=== PATIENT | male | born 1940 | race American Indian/Alaskan Native ===

== ENCOUNTER 2021-05-20 11:45 | Emergency (ER) | payer MEDICARE ==
--- NOTE | 2021-05-20 14:48 | Emergency Department Report ---
HPI - General Chief Complaint: Weakness Time Seen by Provider: 05/20/21 14:39 - HPI HPI: 80-year-old -[place] male presents to the emergency department, brought in by his daughter, for evaluation of weakness, possible altered mental status, and being COVID-positive. Apparently patient had exposure to someone who was positive for COVID-19 back on 05/08. He was just tested about 4 days ago and it resulted as positive. He has a past medical history of dementia and hypertension. He lives in a personal skilled nursing. The daughter says that he had some type of a fall yesterday in which EMS was called but they did not feel that there was any evidence of trauma and he was not seen in the emergency department. She says that he has been having more difficulty following directions, has been shaky, and is having difficulty with ambulation. The patient usually walks with a cane. No recent travel or sick contacts at home. ED Review of Systems ROS: Stated complaint: WEAKNESS/SHAKY/SICKNESS Other details as noted in HPI Comment: Unobtainable due to pts medical conditions (hx of dementia) Constitutional: weakness Neurological: confusion Physical Exam - Physical Exam Physical Exam: GENERAL: The patient is well-developed well-nourished. HENT: Normocephalic. Atraumatic. Patient has moist mucous membranes. EYES: Extraocular motions are intact. No nystagmus. NECK: Supple. Trachea is midline. CHEST/LUNGS: Clear to auscultation. There is no respiratory distress noted. HEART/CARDIOVASCULAR: Regular. There is no tachycardia. There is no murmur. ABDOMEN: Abdomen is soft, nontender. Patient has normal bowel sounds. SKIN: Skin is warm and dry. NEURO: The patient is awake, alert, and cooperative. Normal speech. Cranial nerves II through XII grossly intact. MUSCULOSKELETAL: There is no tenderness or deformity. There is no limitation range of motion. ED Medical Decision Making - Lab Data Result diagrams: 05/20/21 14:53 05/20/21 14:53 Lab Results 05/20/21 05/20/21 05/20/21 Range/Units 14:53 14:53 14:53 WBC 9.3 (4.5-11.0) K/mm3 RBC 5.76 H (3.65-5.03) M/mm3 Hgb 16.2 H (11.8-15.2) gm/dl Hct 49.9 H (35.5-45.6) % MCV 87 (84-94) fl MCH 28 (28-32) pg MCHC 33 (32-34) % RDW 15.0 (13.2-15.2) % Plt Count 154 (140-440) K/mm3 Lymph % (Auto) 15.7 (13.4-35.0) % Schleicher % (Auto) 13.6 H (0.0-7.3) % Eos % (Auto) 0.0 (0.0-4.3) % Baso % (Auto) 0.4 (0.0-1.8) % Lymph # (Auto) 1.5 (1.2-5.4) K/mm3 Schleicher # (Auto) 1.3 H (0.0-0.8) K/mm3 Eos # (Auto) 0.0 (0.0-0.4) K/mm3 Baso # (Auto) 0.0 (0.0-0.1) K/mm3 Seg Neutrophils % 70.3 H (40.0-70.0) % Seg Neutrophils # 6.5 (1.8-7.7) K/mm3 Sodium 146 H (137-145) mmol/L Potassium 4.8 (3.6-5.0) mmol/L Chloride 106.5 (98-107) mmol/L Carbon Dioxide 22 (22-30) mmol/L Anion Gap 22 mmol/L BUN 29 H (9-20) mg/dL Creatinine 1.2 (0.8-1.3) mg/dL Estimated GFR > 60 ml/min BUN/Creatinine Ratio 24 % Glucose 127 H (75-100) mg/dL Calcium 9.4 (8.4-10.2) mg/dL Total Bilirubin 0.60 (0.1-1.2) mg/dL AST 48 H (5-40) units/L ALT 34 (7-56) units/L Alkaline Phosphatase 63 (35-129) units/L Ammonia (25-60) umol/L Troponin T < 0.010 (0.00-0.029) ng/mL Total Protein 7.7 (6.3-8.2) g/dL Albumin 4.2 (3.9-5) g/dL Albumin/Globulin Ratio 1.2 % TSH 1.400 (0.270-4.200) mlU/mL 05/20/21 Range/Units 14:53 WBC (4.5-11.0) K/mm3 RBC (3.65-5.03) M/mm3 Hgb (11.8-15.2) gm/dl Hct (35.5-45.6) % MCV (84-94) fl MCH (28-32) pg MCHC (32-34) % RDW (13.2-15.2) % Plt Count (140-440) K/mm3 Lymph % (Auto) (13.4-35.0) % Schleicher % (Auto) (0.0-7.3) % Eos % (Auto) (0.0-4.3) % Baso % (Auto) (0.0-1.8) % Lymph # (Auto) (1.2-5.4) K/mm3 Schleicher # (Auto) (0.0-0.8) K/mm3 Eos # (Auto) (0.0-0.4) K/mm3 Baso # (Auto) (0.0-0.1) K/mm3 Seg Neutrophils % (40.0-70.0) % Seg Neutrophils # (1.8-7.7) K/mm3 Sodium (137-145) mmol/L Potassium (3.6-5.0) mmol/L Chloride (98-107) mmol/L Carbon Dioxide (22-30) mmol/L Anion Gap mmol/L BUN (9-20) mg/dL Creatinine (0.8-1.3) mg/dL Estimated GFR ml/min BUN/Creatinine Ratio % Glucose (75-100) mg/dL Calcium (8.4-10.2) mg/dL Total Bilirubin (0.1-1.2) mg/dL AST (5-40) units/L ALT (7-56) units/L Alkaline Phosphatase (35-129) units/L Ammonia 18.0 L (25-60) umol/L Troponin T (0.00-0.029) ng/mL Total Protein (6.3-8.2) g/dL Albumin (3.9-5) g/dL Albumin/Globulin Ratio % TSH (0.270-4.200) mlU/mL - EKG Data -: EKG Interpreted by Me EKG shows normal: sinus rhythm, axis (Left axis deviation), intervals (Slightly prolonged QTC), QRS complexes, ST-T waves (Nonspecific T waves) Rate: tachycardia (113 bpm) - EKG Data When compared to previous EKG there are: previous EKG unavailable Interpretation: other (Sinus tachycardia at 113 bpm, left axis deviation, prolonged QTC, nonspecific T waves. No ST elevation UT) - Radiology Data Radiology results: report reviewed, image reviewed interpreted by me: Chest x-ray does not show any acute process. There are no pleural effusions, obvious pneumonia and there is no pneumothorax. No widened mediastinum. CT BRAIN: 05/20/2021 INDICATION / CLINICAL INFORMATION: weakness, fall. COMPARISON: None available. FINDINGS: BRAIN/INTRACRANIAL STRUCTURES: Unenhanced CT images of the brain were obtained. There is no evidence of acute abnormality. Ventricles and sulci are prominent in size, consistent with age-related atrophic change. Chronic white matter hypoattenuation is present diffusely. There is evidence of focal subcortical ischemic change in the right basal ganglia and fro ntal white matter. There is no CT evidence of acute large vessel territory ischemic injury, which, or mass. There are no abnormal extra-axial fluid collections. EXTRACRANIAL STRUCTURES: Unremarkable. IMPRESSION: No acute abnormality. Chronic and age-related changes. - Medical Decision Making This is a COVID-positive 80-year-old male who was brought in by his daughter for complaints of some generalized weakness and fatigue and concerned that he cannot remain at his personal skilled nursing. On examination the patient does have some confusion, but the patient does have history of dementia. Cranial nerves are intact and he is following commands. CT scan of the head without contrast does not show any hemorrhage, large vessel occlusion, or any other acute process. Patient's labs have been mostly unremarkable including CBC, metabolic panel, negative troponin, normal thyroid function, ammonia level. EKG did not show any morphology consistent with ST elevation myocardial infarction. Vital signs reassuring throughout his ED course. Patient was able to ambulate up and down the emergency department hallway and says that he feels stable and he did not have any significant hypoxia. This should be enough for the patient to remain at his personal skilled nursing with what ever minimal assistance they provide for ADLs. They have been instructed to follow-up with primary care and return to the emergency department with any worsening of his symptoms or with any acute distress. Critical Care Time: No Critical care attestation.: If time is entered above; I have spent that time in minutes in the direct care of this critically ill patient, excluding procedure time. ED Disposition Clinical Impression: COVID-19, Dementia, Generalized weakness Disposition: 01 HOME / SELF CARE / HOMELESS Is pt being admited?: No Condition: Stable Instructions: COVID-19, Dementia, Weakness Additional Instructions: Please follow-up with your primary care physician in the next few days. Please isolate/quarantine yourself from anybody who is immunocompromised, chronically ill/debilitated, unvaccinated. Increase your oral rehydration. Return to the emergency department with any worsening of your symptoms, new or concerning symptoms not addressed during this current emergency department visit, or with any acute distress. Referrals: SHARDA RÍOS MD [Primary Care Provider] - 2-3 Days Time of Disposition: 17:57
[2021-05-20 15:09] LABS: Basophils % (Auto) 0.4 % (0.0-1.8); Hematocrit 49.9 % (35.5-45.6); Hemoglobin 16.2 gm/dl (11.8-15.2); Lymphocytes # (Auto) 1.5 K/mm3 (1.2-5.4); Lymphocytes % (Auto) 15.7 % (13.4-35.0); Mean Corpuscular HGB Conc 33 % (32-34); Mean Corpuscular Volume 87 fl (84-94); Monocytes # (Auto) 1.3 K/mm3 (0.0-0.8); Monocytes % (Auto) 13.6 % (0.0-7.3); Platelet Count 154 K/mm3 (140-440); Red Blood Count 5.76 M/mm3 (3.65-5.03)
[2021-05-20 15:32] LABS: Alanine Aminotransferase 34 units/L (7-56); Albumin 4.2 g/dL (3.9-5); BUN/Creatinine Ratio 24; Blood Urea Nitrogen 29 mg/dL (9-20); Calcium 9.4 mg/dL (8.4-10.2); Hemolysis Index 115
--- NOTE | 2021-05-20 16:31 | Cat Scan Report ---
CT BRAIN: 05/20/2021 INDICATION / CLINICAL INFORMATION: weakness, fall. COMPARISON: None available. FINDINGS: BRAIN/INTRACRANIAL STRUCTURES: Unenhanced CT images of the brain were obtained. There is no evidence of acute abnormality. Ventricles and sulci are prominent in size, consistent with age-related atrophic change. Chronic whit e matter hypoattenuation is present diffusely. There is evidence of focal subcortical ischemic change in the right basal ganglia and frontal white m atter. There is no CT evidence of acute large vessel territory ischemic injury, which, or mass. There are no abnormal extra-axial fluid collections. EXTRACRANIAL STRUCTURES: Unremarkable. IMPRESSION: No acute abnormality. Chronic and age-related changes. All CT scans at this location are performed using dose reduction to ALARA by means of automated expos ure control. Signer Name: Cornel Desai MD Signed: 05/20/2021 4:26 PM Workstation Name: [id number]
[2021-05-20 16:43] VITALS: BP 119/78
--- NOTE | 2021-05-20 17:13 | XRay Report ---
CHEST 2 VIEWS INDICATION / CLINICAL INFORMATION: SOB. COMPARISON: None available. FINDINGS: SUPPORT DEVICES: None. HEART / MEDIASTINUM: No significant abnormality. LUNGS / PLEURA: No significant pulmonary or pleural abnormality. No pneumothorax. ADDITIONAL FINDINGS: No significant additional findings. IMPRESSION: 1. No acute findings. Signer Name: Abhi Cool MD Signed: 05/20/2021 5:09 PM Workstation Name: [facility] [id number]
--- NOTE | 2021-05-21 10:02 | Electrocardiograph Report ---
[facility] Test Date: 2021-05-20 Test Time: 15:21:44 Pat Name: ANTON HEAD Department: Room: Gender: M Pmo Lead: [employer] : 1940 Requested By: ARAM GRIFFITHS Order Number: [id number] Reading MD: Dorian Almazan Measurements Intervals [place] Rate: 110 P: CA: QRS: 27 QRSD: 108 T: 33 QT: 335 QTc: 455 Interpretive Statements Atrial flutter with predominant 2:[address] elevation secondary to atrial flutter No previous ECG available for comparison Electronically Signed On 05-21-2021 10:01:36 EST by Dorian Almazan
--- NOTE | 2021-05-21 10:04 | Electrocardiograph Report ---
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 Compared to ECG 05/20/2021 15:21:44 No significant change noted. Electronically Signed On 05-21-2021 10:04:17 EST by Dorian Almazan
== END 2021-05-20 18:54 | disposition home or self-care (01) ==
LOC: ED 11:45
DX: U07.1 COVID-19 (principal); F03.90 Unspecified dementia, unspecified severity, without behavioral disturbance, psychotic disturbance, mood disturbance, and anxiety; M62.81 Muscle weakness (generalized)
CPT/HCPCS: 36415; 70450; 71046; 80053; 82140; 84443; 84484; 85025; 93005; 99284

== ENCOUNTER 2021-06-03 12:38 | Inpatient (IN) | payer MEDICARE, OTHER ==
[2021-06-03] MEDS ORDERED: SODIUM CHLORIDE 0.9% 1000 ML 1,000 ML IV ONE ×2 (12:59→15:36)
--- NOTE | 2021-06-03 13:03 | Emergency Department Report ---
ED General Adult HPI - General Chief complaint: Weakness Stated complaint: WEAKNESS Time Seen by Provider: 06/03/21 12:53 Source: EMS Mode of arrival: Stretcher Limitations: Altered Mental Status - History of Present Illness Initial comments: Patient is 80 years old male with history of dementia and hypertension. Patient also recently diagnosed with COVID-19 and he was discharged from rehab to his home. Patient brought to the emergency room via EMS for evaluation of generalized weakness and altered mental status. Patient daughter informed EMS that he has not been eating or drinking well for the last 2 weeks. Patient is confused and unable to answer question appropriately. Patient is moving all extremities with no difficulties. Patient was seen here 12 days ago for similar complaint. EMS stated that patient initial oxygen saturation was 88% on room air improved to 96% on 3 L. Severity scale (0 -10): 0 - Related Data Allergies Allergy/AdvReac Type Severity Reaction Status Date / Time No Known Allergies Allergy Unverified 05/20/21 14:16 ED Review of Systems ROS: Stated complaint: WEAKNESS Other details as noted in HPI Comment: Unobtainable due to pts medical conditions ED Physical Exam - General Limitations: Altered Mental Status General appearance: alert, in no apparent distress - Head Head exam: Present: atraumatic, normocephalic, normal inspection - ENT ENT exam: Present: mucous membranes dry - Neck Neck exam: Present: normal inspection - Respiratory Respiratory exam: Present: decreased breath sounds. Absent: respiratory distress - Cardiovascular Cardiovascular Exam: Present: regular rate, normal rhythm, normal heart sounds - GI/Abdominal GI/Abdominal exam: Present: soft, normal bowel sounds. Absent: distended, tenderness, guarding, rebound, rigid, organomegaly, mass, bruit, pulsatile mass, hernia - Back Exam Back exam: Present: normal inspection, full ROM. Absent: CVA tenderness (R), CVA tenderness (L) - Neurological Exam Neurological exam: Present: alert, altered, CN II-XII intact. Absent: motor sensory deficit - Psychiatric Psychiatric exam: Present: flat affect - Skin Skin exam: Present: warm, dry, intact, normal color ED Course Vital Signs 06/03/21 06/03/21 06/03/21 12:45 15:12 15:15 Pulse Rate 90 121 H 122 H Respiratory 16 22 17 Rate Blood Pressure 111/83 Blood Pressure 106/70 [Left] O2 Sat by Pulse 98 95 98 Oximetry ED Medical Decision Making - Lab Data Result diagrams: 06/03/21 14:09 06/03/21 14:09 - Radiology Data Radiology results: report reviewed - Medical Decision Making Patient is 80 years old male with history of dementia and hypertension. Patient also recently diagnosed with COVID-19 and he was discharged from rehab to his home. Patient brought to the emergency room via EMS for evaluation of generalized weakness and altered mental status. Patient daughter informed EMS that he has not been eating or drinking well for the last 2 weeks. Patient is confused and unable to answer question appropriately. Patient is moving all extremities with no difficulties. Patient was seen here 12 days ago for similar complaint. EMS stated that patient initial oxygen saturation was 88% on room air improved to 96% on 3 L. Patient received normal saline. Chest x-ray is unremarkable CT brain is negative for acute finding. Labs reviewed and showed leukocytosis of 14,000. Chemistry showed creatinine of 1.7 increased from 1.210 days ago BUN now is 58 increased from 29 indicating dehydration possibly failure to thrive. Patient given Zosyn. Urine is still pending. Discussed the patient with Dr. Weems, he agreed to admit the patient to the hospital for further management. Critical Care Time: Yes Critical care time in (mins) excluding proc time.: 35 Critical care attestation.: If time is entered above; I have spent that time in minutes in the direct care of this critically ill patient, excluding procedure time. ED Disposition Clinical Impression: Acute renal failure, Failure to thrive, Elevated INR, Generalized weakness, Metabolic encephalopathy Disposition: ADMITTED INPATIENT Is pt being admited?: Yes Condition: Stable
--- NOTE | 2021-06-03 13:29 | Cat Scan Report ---
CT BRAIN: 06/03/2021 INDICATION / CLINICAL INFORMATION: Altered Mental Status. COMPARISON: CT brain 05/20/2021 FINDINGS: BRAIN/INTRACRANIAL STRUCTURES: Unenhanced CT images of the brain were obtained and compared to the re cent prior exam from 05/20/2021. Overall, there is been no change. Again seen is prominent diffuse atrophic change. Extensive chronic white matter hypoattenuation. Righ t frontal subcortical chronic ischemic changes are again noted. There is no evidence of acute large vessel territory ischemic injury, hemorrhage, or mass. There are no abnormal extra-axial fluid collections. EXTRACRANIAL STRUCTURES: Unremarkable. IMPRESSION: No acute abnormality. Chronic ischemic and age-related changes. All CT scans at this location are performed using dose reduction to ALARA by means of automated expos ure control. Signer Name: Cornel Desai MD Signed: 06/03/2021 1:25 PM Workstation Name: [id number]
--- NOTE | 2021-06-03 14:04 | XRay Report ---
CHEST 1 VIEW 06/03/2021 12:56 PM INDICATION / CLINICAL INFORMATION: Altered Mental Status. COMPARISON: 05/20/2021 FINDINGS: SUPPORT DEVICES: None. HEART / MEDIASTINUM: No significant abnormality. LUNGS / PLEURA: No acute findings. Stable mild linear scarring in the right midlung. No pneumothorax. ADDITIONAL FINDINGS: No significant additional findings. IMPRESSION: 1. No acute findings. Signer Name: Sly Velazquez MD Signed: 06/03/2021 2:00 PM Workstation Name: [email or web address]
[2021-06-03 14:47] LABS: Basophils # (Auto) 0.1 K/mm3 (0.0-0.1); Basophils % (Auto) 0.7 % (0.0-1.8); Eosinophils % (Auto) 0.1 % (0.0-4.3); Hematocrit 53.1 % (35.5-45.6); Lymphocytes # (Auto) 1.2 K/mm3 (1.2-5.4); Lymphocytes % (Auto) 8.2 % (13.4-35.0); Mean Corpuscular HGB Conc 32 % (32-34); Mean Corpuscular Volume 88 fl (84-94); Monocytes # (Auto) 1.3 K/mm3 (0.0-0.8); Monocytes % (Auto) 9.3 % (0.0-7.3); Platelet Count 437 K/mm3 (140-440); Red Blood Count 6.07 M/mm3 (3.65-5.03)
[2021-06-03 15:11] LABS: Alanine Aminotransferase 65 units/L (7-56); Albumin 3.3 g/dL (3.9-5); BUN/Creatinine Ratio 32; Bilirubin,Direct < 0.2 mg/dL (0-0.2); Blood Urea Nitrogen 55 mg/dL (9-20); Calcium 10.3 mg/dL (8.4-10.2); Hemolysis Index 1
[2021-06-03 15:31] LABS: INR 6.5 (0.87-1.13); Partial Thromboplastin Time 69.2 Sec. (24.2-36.6)
[2021-06-03] MEDS ORDERED: PIPERACILLIN/TAZOBACTAM 3.375 3.375 GM/50 ML BAG IV ONE (15:35)
[2021-06-03] MEDS ORDERED: MORPHINE 2 MG/1 ML INJ IV PRN (21:43)
[2021-06-03] MEDS ORDERED: ACETAMINOPHEN 325 MG TAB PO PRN (21:43)
[2021-06-03] MEDS ORDERED: ONDANSETRON 4 MG/2 ML INJ IV PRN (21:43)
--- NOTE | 2021-06-03 21:43 | History and Physical Report ---
History of Present Illness Date of examination: 06/03/21 Date of admission: 06/03/2021 Chief complaint: Altered sensorium and poor p.o. intake History of present illness: 80-year-old male with history of dementia and hypertension, recently diagnosed with COVID-19 from which she has recovered and was discharged from rehab to home continues to have generalized weakness and altered mental status. Patient is lethargic. Not eating or drinking well. Patient is confused and unable to answer questions appropriately. Able to move all 4 extremities. No fever or chills. Patient was seen here for 12 days ago for similar complaint. Past History Past Medical History: arrhythmia, CAD, hypertension, other (Depression) Past Surgical History: Other Social history: lives with family, full code Family history: hypertension Medications and Allergies Allergies Allergy/AdvReac Type Severity Reaction Status Date / Time No Known Allergies Allergy Unverified 05/20/21 14:16 Home Medications Medication Instructions Recorded Confirmed Last Taken Type Aspirin 325 mg PO QDAY 06/03/21 06/03/21 06/02/21 History Azelastine HCl 0.05% 0.05 mg OU BID 06/03/21 06/03/21 06/02/21 History Azelastine HCl 0.05% 1 drop OU BID 06/03/21 06/03/21 06/02/21 History Cyanocobalamin (Vitamin B-12) 1,000 mcg PO QDAY 06/03/21 06/03/21 06/02/21 History Diltiazem 24Hr ER (Cd) 120 mg PO QDAY 06/03/21 06/03/21 06/02/21 History Divalproex Sodium 250 mg PO QHS 06/03/21 06/03/21 06/02/21 History ISOSORBIDE MONOnitrate 30 mg PO DAILY 06/03/21 06/03/21 06/02/21 History Memantine HCl 10 mg PO QDAY 06/03/21 06/03/21 06/02/21 History QUEtiapine 25 mg PO QHS 06/03/21 06/03/21 06/02/21 History Warfarin [Coumadin] 5 mg PO QDAY 06/03/21 06/03/21 06/02/21 History ZyrTEC 10mg cap 10 mg PO QDAY 06/03/21 06/03/21 06/02/21 History Review of Systems All systems: negative Constitutional: weight loss, no weight gain, no fever, no chills Respiratory: shortness of breath Genitourinary Male: no dysuria, no hematuria, no flank pain, no discharge Musculoskeletal: no neck stiffness, no neck pain, no arm numbness/tingling Integumentary: no rash, no pruritis, no redness Neurological: weakness, no head injury, no transient paralysis, no paralysis Psychiatric: no anxiety, no memory loss Endocrine: no cold intolerance, no heat intolerance, no polyphagia Hematologic/Lymphatic: no easy bruising, no easy bleeding Allergic/Immunologic: no urticaria, no allergic rhinitis, no wheezing Exam - Constitutional Vitals: Temp Pulse Resp BP Pulse Ox 98.0 F 120 H 11 L 134/84 95 06/03/21 18:14 06/03/21 16:45 06/03/21 17:01 06/03/21 17:01 06/03/21 17:01 General appearance: Present: mild distress, well-nourished - EENT Eyes: Present: PERRL ENT: hearing intact, clear oral mucosa - Neck Neck: Present: supple, normal ROM - Respiratory Respiratory effort: normal Respiratory: bilateral: CTA - Cardiovascular Heart rate: 78 Rhythm: irregularly irregular Heart Sounds: Present: S1 & S2. Absent: rub, click - Extremities Extremities: pulses symmetrical, No edema Peripheral Pulses: within normal limits - Abdominal General gastrointestinal: Present: soft, non-tender, non-distended, normal bowel sounds Male genitourinary: Present: normal - Rectal Rectal Exam: deferred - Integumentary Integumentary: Present: clear, warm, dry - Musculoskeletal Musculoskeletal: generalized weakness - Psychiatric Psychiatric: other (Lethargic) - Neurologic Neurologic: CNII-XII intact, moves all extremities, other (Lethargic) - Allied Health Allied health notes reviewed: nursing, case management HEART Score - HEART Score Troponin: Troponin T 0.026 ng/mL (0.00-0.029) 06/03/21 14:09 Results - Labs CBC & Chem 7: 06/04/21 05:01 06/04/21 05:01 Labs: Laboratory Last Values WBC 14.4 K/mm3 (4.5-11.0) H 06/03/21 14:09 RBC 6.07 M/mm3 (3.65-5.03) H 06/03/21 14:09 Hgb 17.0 gm/dl (11.8-15.2) H 06/03/21 14:09 Hct 53.1 % (35.5-45.6) H 06/03/21 14:09 MCV 88 fl (84-94) 06/03/21 14:09 MCH 28 pg (28-32) 06/03/21 14:09 MCHC 32 % (32-34) 06/03/21 14:09 RDW 15.0 % (13.2-15.2) 06/03/21 14:09 Plt Count 437 K/mm3 (140-440) 06/03/21 14:09 Lymph % (Auto) 8.2 % (13.4-35.0) L 06/03/21 14:09 [place] % (Auto) 9.3 % (0.0-7.3) H 06/03/21 14:09 Eos % (Auto) 0.1 % (0.0-4.3) 06/03/21 14:09 Baso % (Auto) 0.7 % (0.0-1.8) 06/03/21 14:09 Lymph # (Auto) 1.2 K/mm3 (1.2-5.4) 06/03/21 14:09 [place] # (Auto) 1.3 K/mm3 (0.0-0.8) H 06/03/21 14:09 Eos # (Auto) 0.0 K/mm3 (0.0-0.4) 06/03/21 14:09 Baso # (Auto) 0.1 K/mm3 (0.0-0.1) 06/03/21 14:09 Seg Neutrophils % 81.7 % (40.0-70.0) H 06/03/21 14:09 Seg Neutrophils # 11.8 K/mm3 (1.8-7.7) H 06/03/21 14:09 PT 61.0 Sec. (12.2-14.9) H 06/03/21 14:09 INR 6.50 (0.87-1.13) H* 06/03/21 14:09 APTT 69.2 Sec. (24.2-36.6) H* 06/03/21 14:09 Sodium 153 mmol/L (137-145) H 06/03/21 14:09 Potassium 4.7 mmol/L (3.6-5.0) 06/03/21 14:09 Chloride 111.2 mmol/L (98-107) H 06/03/21 14:09 Carbon Dioxide 27 mmol/L (22-30) 06/03/21 14:09 Anion Gap 20 mmol/L 06/03/21 14:09 BUN 55 mg/dL (9-20) H 06/03/21 14:09 Creatinine 1.7 mg/dL (0.8-1.3) H 06/03/21 14:09 Estimated GFR 47 ml/min 06/03/21 14:09 BUN/Creatinine Ratio 32 % 06/03/21 14:09 Glucose 167 mg/dL (75-100) H 06/03/21 14:09 Lactic Acid 3.10 mmol/L (0.7-2.0) H* 06/03/21 19:39 Calcium 10.3 mg/dL (8.4-10.2) H 06/03/21 14:09 Total Bilirubin 0.40 mg/dL (0.1-1.2) 06/03/21 14:09 Direct Bilirubin < 0.2 mg/dL (0-0.2) 06/03/21 14:09 Indirect Bilirubin 0.2 mg/dL 06/03/21 14:09 AST 96 units/L (5-40) H 06/03/21 14:09 ALT 65 units/L (7-56) H 06/03/21 14:09 Alkaline Phosphatase 78 units/L (35-129) 06/03/21 14:09 Ammonia 13.0 umol/L (25-60) L 06/03/21 14:09 Total Creatine Kinase 3901 units/L (55-170) H 06/03/21 14:09 Troponin T 0.026 ng/mL (0.00-0.029) 06/03/21 14:09 Total Protein 8.5 g/dL (6.3-8.2) H 06/03/21 14:09 Albumin 3.3 g/dL (3.9-5) L 06/03/21 14:09 Albumin/Globulin Ratio 0.6 % 06/03/21 14:09 TSH 2.100 mlU/mL (0.270-4.200) 06/03/21 14:09 Short CBC 06/03/21 06/04/21 Range/Units 14:09 05:01 WBC 14.4 H 13.5 H (4.5-11.0) K/mm3 Hgb 17.0 H 14.2 (11.8-15.2) gm/dl Hct 53.1 H 44.9 D (35.5-45.6) % Plt Count 437 382 (140-440) K/mm3 BMP 06/03/21 06/04/21 14:09 05:01 Sodium 153 H 158 H Potassium 4.7 4.6 Chloride 111.2 H 119.3 H Carbon Dioxide 27 25 BUN 55 H 44 H Creatinine 1.7 H 1.5 H Glucose 167 H 128 H Calcium 10.3 H 9.3 Cardiac Enzymes 06/03/21 Range/Units 14:09 Total Creatine Kinase 3901 H (55-170) units/L Troponin T 0.026 (0.00-0.029) ng/mL Liver Function 06/03/21 06/04/21 Range/Units 14:09 05:01 Total Bilirubin 0.40 0.40 (0.1-1.2) mg/dL Direct Bilirubin < 0.2 (0-0.2) mg/dL AST 96 H 90 H (5-40) units/L ALT 65 H 55 (7-56) units/L Alkaline Phosphatase 78 61 (35-129) units/L Albumin 3.3 L 2.9 L (3.9-5) g/dL Microbiology: Microbiology 06/03/21 14:09 Peripheral/Venous Blood Culture - Preliminary Culture in Progress 06/03/21 14:09 Peripheral/Venous Blood Culture - Preliminary Culture in Progress - Imaging and Cardiology Chest x-ray: report reviewed Imaging and Cardiology: chest x-ray No acute findings Head CT No acute abnormality Chronic ischemic and age-related changes Assessment and Plan Advance Directives: Yes (Full code) - Patient Problems (1) Failure to thrive Current Visit: Yes Status: Acute Plan to address problem: Patient not eating or drinking well 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 Psych consult requested (2) Hypernatremia Current Visit: Yes Status: Acute Plan to address problem: D5W to half-normal saline gently (3) CHANDLER (acute kidney injury) Current Visit: Yes Status: Acute Plan to address problem: IV fluids for now Vasomotor nephropathy (4) Hypertension Current Visit: Yes Status: Chronic Qualifiers: Hypertension type: primary hypertension Qualified Code(s): I10 - Essential (primary) hypertension Plan to address problem: Continue antihypertensives as tolerated (5) CAD (coronary artery disease) Current Visit: Yes Status: Chronic Qualifiers: Coronary Disease-Associated Artery/Lesion type: [place] artery [place] vs. transplanted heart: [place] heart Plan to address problem: Continue aspirin and isosorbide mononitrate (6) Coagulopathy Current Visit: Yes Status: Acute Plan to address problem: INR is high at 6.5 Hold Coumadin for now (7) Malnutrition Current Visit: Yes Status: Chronic Qualifiers: Protein-calorie malnutrition severity: moderate Plan to address problem: Dietary supplements requested (8) Transaminitis Current Visit: Yes Status: Acute Plan to address problem: AST and ALT are elevated--96 and 65 Acute hepatitis profile (9) Psychosis Current Visit: Yes Status: Chronic Plan to address problem: By history Mental health consult (10) Elevated brain natriuretic peptide (BNP) level Current Visit: Yes Status: Acute Plan to address problem: Echocardiogram for ejection fraction and valve function (11) Rhabdomyolysis Current Visit: Yes Status: Acute Qualifiers: Rhabdomyolysis type: non-traumatic Qualified Code(s): M62.82 - Rhabdomyolysis Plan to address problem: IV fluids for now and monitor his creatinine kinase (12) DVT prophylaxis Current Visit: Yes Status: Acute Plan to address problem: On anticoagulation GI prophylaxis (13) Advance care planning Current Visit: Yes Status: Acute Plan to address problem: Family counseled about disease education, care planning diagnosis and prognosis. Patient is full code. Family acknowledges understanding and agreement with care plan. +30 minutes.
[2021-06-03] MEDS ORDERED: AZELASTINE HCL 0.05% OU SCH (22:00)
[2021-06-03] MEDS ORDERED: INSULIN LISPRO 100 UNIT/ML SUB-Q ONE (22:45)
[2021-06-04] MEDS ORDERED: SODIUM CHLORIDE 0.9% 1000 ML 2,000 ML ONE (00:02)
[2021-06-04] MEDS: dilTIAZem CD 120 MG CAP PO SCH ×2 (02:00→12:24)
[2021-06-04] MEDS: DIVALPROEX DR 250 MG TAB PO SCH ×2 (02:00→22:09)
[2021-06-04] MEDS: HEPARIN 5,000 UNIT/1 ML VIAL SUB-Q SCH ×2 (02:00→12:24)
[2021-06-04] MEDS: QUEtiapine 25 MG TAB PO SCH ×2 (02:00→22:09)
[2021-06-04] MEDS: MEMANTINE 10 MG TAB PO SCH ×2 (02:00→12:24)
[2021-06-04 05:23] LABS: Basophils % (Auto) 0.3 % (0.0-1.8); Hematocrit 44.9 % (35.5-45.6); Hemoglobin 14.2 gm/dl (11.8-15.2); Lymphocytes # (Auto) 1.1 K/mm3 (1.2-5.4); Lymphocytes % (Auto) 7.8 % (13.4-35.0); Mean Corpuscular HGB Conc 32 % (32-34); Mean Corpuscular Volume 88 fl (84-94); Monocytes # (Auto) 1.7 K/mm3 (0.0-0.8); Monocytes % (Auto) 12.6 % (0.0-7.3); Platelet Count 382 K/mm3 (140-440); Red Blood Count 5.08 M/mm3 (3.65-5.03)
[2021-06-04 05:51] LABS: Albumin 2.9 g/dL (3.9-5); Calcium 9.3 mg/dL (8.4-10.2)
[2021-06-04] MEDS ORDERED: SODIUM CHLORIDE 0.9% 50 ML IVPB IV PRN (08:12)
--- NOTE | 2021-06-04 09:57 | Consultation ---
History of Present Illness - Reason for Consult Consult date: 06/04/21 acute renal failure - History of Present Illness 80-year-old male with history of dementia and hypertension, recently diagnosed with COVID-19 who presents with altered mentation, weakness. Patient is confused and unable to answer questions appropriately. Chart review extensively done. Patient was recently at hospital for similar issues. Creatinine 1.2 at that time, 1.7 on admission here. Past History Past Medical History: arrhythmia, CAD, hypertension, other (Depression) Past Surgical History: Other Social history: lives with family, full code Family history: hypertension Medications and Allergies Allergies Allergy/AdvReac Type Severity Reaction Status Date / Time No Known Allergies Allergy Unverified 05/20/21 14:16 Home Medications Medication Instructions Recorded Confirmed Last Taken Type Aspirin 325 mg PO QDAY 06/03/21 06/03/21 06/02/21 History Azelastine HCl 0.05% 0.05 mg OU BID 06/03/21 06/03/21 06/02/21 History Azelastine HCl 0.05% 1 drop OU BID 06/03/21 06/03/21 06/02/21 History Cyanocobalamin (Vitamin B-12) 1,000 mcg PO QDAY 06/03/21 06/03/21 06/02/21 History Diltiazem 24Hr ER (Cd) 120 mg PO QDAY 06/03/21 06/03/21 06/02/21 History Divalproex Sodium 250 mg PO QHS 06/03/21 06/03/21 06/02/21 History ISOSORBIDE MONOnitrate 30 mg PO DAILY 06/03/21 06/03/21 06/02/21 History Memantine HCl 10 mg PO QDAY 06/03/21 06/03/21 06/02/21 History QUEtiapine 25 mg PO QHS 06/03/21 06/03/21 06/02/21 History Warfarin [Coumadin] 5 mg PO QDAY 06/03/21 06/03/21 06/02/21 History ZyrTEC 10mg cap 10 mg PO QDAY 06/03/21 06/03/21 06/02/21 History Active Meds: Active Medications Acetaminophen (Acetaminophen 325 Mg Tab) 650 mg PO Q4H PRN PRN Reason: Pain MILD(1-3)/Fever >100.5/THAYER Cetirizine HCl (Cetirizine 10 Mg Tab) 10 mg PO QDAY PENDING SALE TO [facility] Diltiazem HCl (Diltiazem Cd 120 Mg Cap) 120 mg PO QDAY PENDING SALE TO [facility] Last Admin: 06/04/21 02:00 Dose: 120 mg Divalproex Sodium (Divalproex Dr 250 Mg Tab) 250 mg PO QHS PENDING SALE TO [facility] Last Admin: 06/04/21 02:00 Dose: 250 mg Heparin Sodium (Porcine) (Heparin 5,000 Unit/1 Ml Vial) 5,000 unit SUB-Q Q12HR PENDING SALE TO [facility] Last Admin: 06/04/21 02:00 Dose: 5,000 unit Dextrose (D5w) 1,000 mls @ 125 mls/hr IV DIRECT PENDING SALE TO [facility] Isosorbide Mononitrate (Isosorbide Mononitrate Er 30 Mg Tab) 30 mg PO DAILY PENDING SALE TO [facility] Last Admin: 06/04/21 02:00 Dose: 30 mg Memantine (Memantine 10 Mg Tab) 10 mg PO QDAY PENDING SALE TO [facility] Last Admin: 06/04/21 02:00 Dose: 10 mg Miscellaneous Medication (Azelastine Hcl 0.05%) 1 drop OU BID PENDING SALE TO [facility] Last Admin: 06/04/21 00:41 Dose: Not Given Morphine Sulfate (Morphine 2 Mg/1 Ml Inj) 2 mg IV Q4H PRN PRN Reason: Pain, Moderate (4-6) Ondansetron HCl (Ondansetron 4 Mg/2 Ml Inj) 4 mg IV Q8H PRN PRN Reason: Nausea And Vomiting Quetiapine Fumarate (Quetiapine 25 Mg Tab) 25 mg PO QHS PENDING SALE TO [facility] Last Admin: 06/04/21 02:00 Dose: 25 mg Sodium Chloride (Sodium Chloride 0.9% 10 Ml Flush Syringe) 10 ml IV BID PENDING SALE TO [facility] Last Admin: 06/04/21 00:42 Dose: 10 ml Sodium Chloride (Sodium Chloride 0.9% 50 Ml Ivpb) 10 ml IV PRN PRN PRN Reason: FLUSH Review of Systems ROS unobtainable: due to mental status Exam - Vital Signs Vital signs: Vital Signs Pulse Resp BP Pulse Ox 90 16 106/70 98 06/03/21 12:45 06/03/21 12:45 06/03/21 12:45 06/03/21 12:45 Results - Lab Results 06/04/21 05:01 06/04/21 05:01 Most recent lab results Calcium 9.3 mg/dL (8.4-10.2) 06/04/21 05:01 Assessment and Plan # CHANDLER: creatinine 1.7, was 1.2 on 05/20. Likely pre-renal injury, mild rhabdomyolysis given history with concurrent hypernatremia, hypercalcemia. Continue IVF as tolerated, echo reviewed and fairly stable - avoid nephrotoxins - renally dose medications - urinalysis reviewed, note blood, defer serologies/GN workup given history, age - defer imaging, ensure no retention - I/O - maintain MAP>70 - AM labs # Hypernatremia: agree with 1/2NS for now, encourage po hydration as able # Hypercalcemia: improved with IVF, likely dehydration # Rhabdomyolysis: CK >3000, continue IVF, trend CK # Lactic Acidosis: ensure no infection, IVF as tolerated, note recent COVID-19 diagnosis # Failure to Thrive, Hypoalbuminemia, Malnutrition: management per primary, psych # HTN: BP reasonable # CAD: on ASA # Coagulopathy: note high INR
[2021-06-04] MEDS ORDERED: WARFARIN 5 MG TAB PO SCH (10:00)
[2021-06-04] MEDS: DEXTROSE 5% IN WATER 1,000 ML IV SCH (10:28)
--- NOTE | 2021-06-04 11:30 | Progress Note ---
Assessment and Plan Assessment and plan: 80-year-old male with history of dementia and hypertension who lives in an assisted facility was recently diagnosed with COVID-19 and presented to ED on 05/20/2020 with general weakness and discharged back to [facility]. Patient is now brought back to ED with worsening general weakness and lethargy. Not eating or drinking well. Patient is confused and unable to answer questions appropriately. Able to move all 4 extremities. No fever or chills. 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 intake Current Visit: Yes Status: Acute Plan to address problem: IV fluids for now Vasomotor nephropathy Nephrology consulted Will monitor closely acute hypoxic respiratory failure Chest x-ray unremarkable and lungs sound clear Not in acute respiratory distress currently Unclear the patient has pneumonia Wean O2 as tolerated. leukocytosis with lactic acidosis Remains afebrile Chest x-ray unremarkable, UA negative for UTI. Blood cultures negative to date Unclear if etiology is sepsis or just severe dehydration, aspiration is a possibility. Lactic acid improving, will continue with fluids Will continue to monitor closely. (4) Hypertension Current Visit: Yes Status: Chronic Qualifiers: Hypertension type: primary hypertension Qualified Code(s): I10 - Essential (primary) hypertension Plan to address problem: Continue antihypertensives as tolerated (5) CAD (coronary artery disease) Current Visit: Yes Status: Chronic Qualifiers: Coronary Disease-Associated Artery/Lesion type: [place] artery [place] vs. transplanted heart: [place] heart Plan to address problem: Continue aspirin and isosorbide mononitrate chronic A. fib, currently RVR Off his home meds Digoxin 0.5 mg x 1 dose Resume home meds and diet On chronic Coumadin therapy (6) Coagulopathy Current Visit: Yes Status: Acute Plan to address problem: INR is high at 6.5 Likely due to poor p.o. intake Hold Coumadin for now (7) Malnutrition Current Visit: Yes Status: Chronic Qualifiers: Protein-calorie malnutrition severity: moderate Plan to address problem: Dietary supplements requested (8) Transaminitis Current Visit: Yes Status: Acute Plan to address problem: AST and ALT are elevated--96 and 65 Acute hepatitis profile (9) history of dementiaworsening mental status Current Visit: Yes Status: Chronic Plan to address problem: Likely due to dehydration, hypernatremia, COVID-19 and other infectious process. Currently calm and cooperative, mostly nonverbal Mental health consult (10) Elevated brain natriuretic peptide (BNP) level Current Visit: Yes Status: Acute Plan to address problem: Echocardiogram for ejection fraction and valve function (11) Rhabdomyolysis Current Visit: Yes Status: Acute Qualifiers: Rhabdomyolysis type: non-traumatic Qualified Code(s): M62.82 - Rhabdomyolysis Plan to address problem: IV fluids for now and monitor his creatinine kinase (12) DVT prophylaxis Current Visit: Yes Status: Acute Plan to address problem: INR is still therapeutic (13) Advance care planning Current Visit: Yes Status: Acute Plan to address problem: Family counseled about disease education, care planning diagnosis and prognosis. Patient is full code. Family acknowledges understanding and agreement with ca re plan. +30 minutes. Discussed with the nursing staff. History Interval history: Patient is still intermittent, seen and examined. Alert looking frail, d ehydrated and sluggish as well as confused with history of dementia. Remains on IV fluids. Currently A. fib with RVR, rate 120, off her home meds. Digoxin x1 dose IV given. Patient remains afebrile and hemodynamically stable. Currently on 5L of O2 ordered to wean. Hospitalist Physical - Constitutional Vitals: Temp Pulse Resp BP Pulse Ox 98.0 F 121 H 19 188/163 89 06/03/21 18:14 06/04/21 10:31 06/04/21 10:31 06/04/21 10:31 06/04/21 10:31 General appearance: Present: no acute distress, disheveled, other (Frail, sluggish, confused and dehydrated) - EENT Eyes: Present: PERRL, EOM intact ENT: other (Oral mucosa dry) - Neck Neck: Present: supple - Respiratory Respiratory effort: normal Respiratory: bilateral: diminished (No wheezes or rales.) - Cardiovascular Rhythm: irregularly irregular - Extremities Extremities: No edema - Abdominal General gastrointestinal: soft, non-tender, non-distended, normal bowel sounds - Integumentary Integumentary: Absent: rash - Psychiatric Psychiatric: no agitated - Neurologic Neurologic: other (Awake but sluggish appearing, confused history of dementia. Able to move all four extremities. Face symmetrical. Not much verbal.) HEART Score - HEART Score Troponin: Troponin T 0.026 ng/mL (0.00-0.029) 06/03/21 14:09 Results - Labs CBC & Chem 7: 06/04/21 05:01 06/04/21 05:01 Labs: Laboratory Last Values WBC 13.5 K/mm3 (4.5-11.0) H 06/04/21 05:01 RBC 5.08 M/mm3 (3.65-5.03) H 06/04/21 05:01 Hgb 14.2 gm/dl (11.8-15.2) 06/04/21 05:01 Hct 44.9 % (35.5-45.6) D 06/04/21 05:01 MCV 88 fl (84-94) 06/04/21 05:01 MCH 28 pg (28-32) 06/04/21 05:01 MCHC 32 % (32-34) 06/04/21 05:01 RDW 15.0 % (13.2-15.2) 06/04/21 05:01 Plt Count 382 K/mm3 (140-440) 06/04/21 05:01 Lymph % (Auto) 7.8 % (13.4-35.0) L 06/04/21 05:01 [place] % (Auto) 12.6 % (0.0-7.3) H 06/04/21 05:01 Eos % (Auto) 0.0 % (0.0-4.3) 06/04/21 05:01 Baso % (Auto) 0.3 % (0.0-1.8) 06/04/21 05:01 Lymph # (Auto) 1.1 K/mm3 (1.2-5.4) L 06/04/21 05:01 [place] # (Auto) 1.7 K/mm3 (0.0-0.8) H 06/04/21 05:01 Eos # (Auto) 0.0 K/mm3 (0.0-0.4) 06/04/21 05:01 Baso # (Auto) 0.0 K/mm3 (0.0-0.1) 06/04/21 05:01 Seg Neutrophils % 79.3 % (40.0-70.0) H 06/04/21 05:01 Seg Neutrophils # 10.7 K/mm3 (1.8-7.7) H 06/04/21 05:01 PT 61.0 Sec. (12.2-14.9) H 06/03/21 14:09 INR 6.50 (0.87-1.13) H* 06/03/21 14:09 APTT 69.2 Sec. (24.2-36.6) H* 06/03/21 14:09 Sodium 158 mmol/L (137-145) H 06/04/21 05:01 Potassium 4.6 mmol/L (3.6-5.0) 06/04/21 05:01 Chloride 119.3 mmol/L (98-107) H 06/04/21 05:01 Carbon Dioxide 25 mmol/L (22-30) 06/04/21 05:01 Anion Gap 18 mmol/L 06/04/21 05:01 BUN 44 mg/dL (9-20) H 06/04/21 05:01 Creatinine 1.5 mg/dL (0.8-1.3) H 06/04/21 05:01 Estimated GFR 54 ml/min 06/04/21 05:01 BUN/Creatinine Ratio 29 % 06/04/21 05:01 Glucose 128 mg/dL (75-100) H 06/04/21 05:01 Lactic Acid 3.10 mmol/L (0.7-2.0) H* 06/03/21 19:39 Calcium 9.3 mg/dL (8.4-10.2) 06/04/21 05:01 Total Bilirubin 0.40 mg/dL (0.1-1.2) 06/04/21 05:01 Direct Bilirubin < 0.2 mg/dL (0-0.2) 06/03/21 14:09 Indirect Bilirubin 0.2 mg/dL 06/03/21 14:09 AST 90 units/L (5-40) H 06/04/21 05:01 ALT 55 units/L (7-56) 06/04/21 05:01 Alkaline Phosphatase 61 units/L (35-129) 06/04/21 05:01 Ammonia 13.0 umol/L (25-60) L 06/03/21 14:09 Total Creatine Kinase 3901 units/L (55-170) H 06/03/21 14:09 Troponin T 0.026 ng/mL (0.00-0.029) 06/03/21 14:09 Total Protein 6.7 g/dL (6.3-8.2) D 06/04/21 05:01 Albumin 2.9 g/dL (3.9-5) L 06/04/21 05:01 Albumin/Globulin Ratio 0.8 % 06/04/21 05:01 TSH 2.100 mlU/mL (0.270-4.200) 06/03/21 14:09 Microbiology: Microbiology 06/03/21 14:09 Peripheral/Venous Blood Culture - Preliminary Culture in Progress 06/03/21 14:09 Peripheral/Venous Blood Culture - Preliminary Culture in Progress Active Medications - Current Medications Current Medications: Generic Name Dose Route Start Last Admin Trade Name Freq PRN Reason Stop Dose Admin Acetaminophen 650 mg 06/03/21 21:43 Acetaminophen 325 Mg Tab PO Q4H PRN Pain MILD(1-3)/Fever >100.5/THAYER Cetirizine HCl 10 mg 06/04/21 10:00 Cetirizine 10 Mg Tab PO QDAY PATRICA Diltiazem HCl 120 mg 06/03/21 22:00 06/04/21 02:00 Diltiazem Cd 120 Mg Cap PO 120 mg QDAY PATRICA Administration Divalproex Sodium 250 mg 06/03/21 22:00 06/04/21 02:[address] 250 Mg Tab PO 250 mg QHS PATRICA Administration Heparin Sodium (Porcine) 5,000 unit 06/03/21 22:00 06/04/21 02:00 Heparin 5,000 Unit/1 Ml Vial SUB-Q 5,000 unit Q12HR PATRICA Administration Dextrose 1,000 mls @ 125 mls/hr 06/03/21 22:00 06/04/21 10:28 D5w IV 125 mls/hr DIRECT PATRICA Administration Isosorbide Mononitrate 30 mg 06/03/21 22:00 06/04/21 02:00 Isosorbide Mononitrate Er 30 Mg Tab PO 30 mg DAILY PATRICA Administration Memantine 10 mg 06/03/21 22:00 06/04/21 02:00 Memantine 10 Mg Tab PO 10 mg QDAY PATRICA Administration Miscellaneous Medication 1 drop 06/03/21 22:00 06/04/21 00:41 Azelastine Hcl 0.05% OU Not Given BID PATRICA Morphine Sulfate 2 mg 06/03/21 21:43 Morphine 2 Mg/1 Ml Inj IV Q4H PRN Pain, Moderate (4-6) Ondansetron HCl 4 mg 06/03/21 21:43 Ondansetron 4 Mg/2 Ml Inj IV Q8H PRN Nausea And Vomiting Quetiapine Fumarate 25 mg 06/03/21 22:00 06/04/21 02:00 Quetiapine 25 Mg Tab PO 25 mg QHS PATRICA Administration Sodium Chloride 10 ml 06/03/21 22:00 06/04/21 00:42 Sodium Chloride 0.9% 10 Ml Flush Syringe IV 10 ml BID PATRICA Administration Sodium Chloride 10 ml 06/04/21 08:12 Sodium Chloride 0.9% 50 Ml Ivpb IV PRN PRN FLUSH
[2021-06-04] MEDS: CETIRIZINE 10 MG TAB PO SCH (12:23)
[2021-06-04 13:15] LABS: INR 7.12 (0.87-1.13)
[2021-06-04] MEDS ORDERED: DIGOXIN 0.5 MG/2 ML INJ IV SCH (13:30)
[2021-06-04 16:21] LABS: Bilirubin,Urine NEG (Negative); Blood,Urine MOD (Negative); Color,Urine Yellow (Yellow); Protein,Urine <15 mg/dL mg/dL (Negative); RBC,Urine < 1.0 /HPF (0.0-6.0); Urobilinogen,Urine < 2.0 mg/dL (<2.0)
[2021-06-04 16:26] LABS: WBC,Urine < 1.0 /HPF (0.0-6.0)
[2021-06-04 19:39] LABS: Hepatitis B Surface Antigen Non-Reactive (Negative); Hepatitis C Virus Antibody Non-Reactive (NonReactive)
[2021-06-05] MEDS: DEXTROSE 5% IN WATER 1,000 ML IV SCH (04:18)
--- NOTE | 2021-06-05 08:53 | Electrocardiograph Report ---
[facility] Test Date: 2021-06-05 Test Time: 07:23:25 Pat Name: ANTON ESPINAL JR Department: Room: A372 1 Gender: M Computational Linguist: ZARIA : [id number] Requested By: SAKINA MABRY Order Number: [id number] Reading MD: Tramaine Arias Measurements Intervals [place] Rate: 121 P: -88 AK: 270 QRS: -35 QRSD: 79 T: 94 QT: 345 QTc: 490 Interpretive Statements Sinus or ectopic atrial tachycardia Prolonged AK interval nonspecific st-t Repol abnrm suggests ischemia, diffuse leads Compared to ECG 05/20/2021 17:37:44 First degree AV block now present Left-axis deviation now present Early repolarization now present Possible ischemia now present Electronically Signed On 06-05-2021 8:52:56 EST by Tramaine Arias
[2021-06-05] MEDS: CETIRIZINE 10 MG TAB PO SCH (10:54)
[2021-06-05 11:59] LABS: Basophils % (Auto) 0.3 % (0.0-1.8); Eosinophils % (Auto) 0.1 % (0.0-4.3); Lymphocytes # (Auto) 1.2 K/mm3 (1.2-5.4); Lymphocytes % (Auto) 10.4 % (13.4-35.0); Mean Corpuscular HGB Conc 31 % (32-34); Mean Corpuscular Volume 89 fl (84-94); Monocytes # (Auto) 1.4 K/mm3 (0.0-0.8); Monocytes % (Auto) 11.8 % (0.0-7.3); Platelet Count 327 K/mm3 (140-440); Red Blood Count 5.51 M/mm3 (3.65-5.03); Red Cell Distribution Width 14.9 % (13.2-15.2)
[2021-06-05 12:00] LABS: Hematocrit 48.9 % (35.5-45.6); Hemoglobin 15.2 gm/dl (11.8-15.2)
[2021-06-05 12:14] LABS: INR 5.56 (0.87-1.13)
[2021-06-05] MEDS: dilTIAZem CD 120 MG CAP PO SCH (12:16)
[2021-06-05] MEDS: MEMANTINE 10 MG TAB PO SCH (12:16)
--- NOTE | 2021-06-05 13:38 | Progress Note ---
Assessment and Plan # CHANDLER: creatinine 1.7, was 1.2 on 05/20. No labs for review today. Likely pre- renal injury, mild rhabdomyolysis given history with concurrent hypernatremia, hypercalcemia. - Continue IVF as tolerated, echo reviewed and fairly stable- note that he is on D5W given hypernatremia, may need saline to increase renal perfusion pending labs - avoid nephrotoxins - renally dose medications - urinalysis reviewed, note blood, defer serologies/GN workup given history, age - defer imaging, ensure no retention - I/O - maintain MAP>70 - AM labs # Hypernatremia: D5W now, encourage po hydration as able # Hypercalcemia: improved with IVF, likely dehydration # Rhabdomyolysis: CK >3000, continue IVF, trend CK # Lactic Acidosis: ensure no infection, IVF as tolerated, note recent COVID-19 diagnosis # Failure to Thrive, Hypoalbuminemia, Malnutrition: management per primary, psych # HTN: BP reasonable # CAD: on ASA # Coagulopathy: note high INR Subjective Date of service: 06/05/21 Interval history: Remains lying in bed, sleeping, minimally interactive Objective - Vital Signs Vital signs: Vital Signs - 12hr 06/05/21 10:00 O2 Sat by Pulse 94 Oximetry - General Appearance General appearance: cachectic, chronically ill, frail EENT: ATNC Neck: no JVD Respiratory: Present: Clear to Ascultation Cardiology: regular Gastrointestinal: normoactive bowel sounds Integumentary: no rash, warm and dry Neurologic: no focal deficit, confused, disoriented Psychiatric: other (calm) - Lab 06/05/21 10:27 06/04/21 05:01 Most recent lab results Calcium 9.3 mg/dL (8.4-10.2) 06/04/21 05:01 Medications & Allergies - Medications Allergies/Adverse Reactions: Allergies No Known Allergies Allergy (Unverified 05/20/21 14:16) Home Medications: Home Medications Medication Instructions Recorded Confirmed Last Taken Type Aspirin 325 mg PO QDAY 06/03/21 06/03/21 06/02/21 History Azelastine HCl 0.05% 0.05 mg OU BID 06/03/21 06/03/21 06/02/21 History Azelastine HCl 0.05% 1 drop OU BID 06/03/21 06/03/21 06/02/21 History Cyanocobalamin (Vitamin B-12) 1,000 mcg PO QDAY 06/03/21 06/03/21 06/02/21 History Diltiazem 24Hr ER (Cd) 120 mg PO QDAY 06/03/21 06/03/21 06/02/21 History Divalproex Sodium 250 mg PO QHS 06/03/21 06/03/21 06/02/21 History ISOSORBIDE MONOnitrate 30 mg PO DAILY 06/03/21 06/03/21 06/02/21 History Memantine HCl 10 mg PO QDAY 06/03/21 06/03/21 06/02/21 History QUEtiapine 25 mg PO QHS 06/03/21 06/03/21 06/02/21 History Warfarin [Coumadin] 5 mg PO QDAY 06/03/21 06/03/21 06/02/21 History ZyrTEC 10mg cap 10 mg PO QDAY 06/03/21 06/03/21 06/02/21 History Active Medications: Generic Name Dose Route Start Last Admin Trade Name Freq PRN Reason Stop Dose Admin Acetaminophen 650 mg 06/03/21 21:43 Acetaminophen 325 Mg Tab PO Q4H PRN Pain MILD(1-3)/Fever >100.5/THAYER Cetirizine HCl 10 mg 06/04/21 10:00 06/05/21 10:54 Cetirizine 10 Mg Tab PO 10 mg QDAY PATRICA Administration Diltiazem HCl 120 mg 06/03/21 22:00 06/05/21 12:16 Diltiazem Cd 120 Mg Cap PO 120 mg QDAY PATRICA Administration Divalproex Sodium 250 mg 06/03/21 22:00 06/04/21 22:[address] 250 Mg Tab PO 250 mg QHS PATRICA Administration Dextrose 1,000 mls @ 125 mls/hr 06/03/21 22:00 06/05/21 04:18 D5w IV 125 mls/hr DIRECT PATRICA Administration Isosorbide Mononitrate 30 mg 06/03/21 22:00 06/05/21 10:53 Isosorbide Mononitrate Er 30 Mg Tab PO 30 mg DAILY PATRICA Administration Memantine 10 mg 06/03/21 22:00 06/05/21 12:16 Memantine 10 Mg Tab PO 10 mg QDAY PATRICA Administration Miscellaneous Medication 1 drop 06/03/21 22:00 06/04/21 00:41 Azelastine Hcl 0.05% OU Not Given BID PATRICA Ondansetron HCl 4 mg 06/03/21 21:43 Ondansetron 4 Mg/2 Ml Inj IV Q8H PRN Nausea And Vomiting Quetiapine Fumarate 25 mg 06/03/21 22:00 06/04/21 22:09 Quetiapine 25 Mg Tab PO 25 mg QHS PATRICA Administration Sodium Chloride 10 ml 06/03/21 22:00 06/05/21 10:54 Sodium Chloride 0.9% 10 Ml Flush Syringe IV 10 ml BID PATRICA Administration Sodium Chloride 10 ml 06/04/21 08:12 Sodium Chloride 0.9% 50 Ml Ivpb IV PRN PRN FLUSH
[2021-06-05 14:23] LABS: Albumin 2.6 g/dL (3.9-5); C-Reactive Protein 14.4 mg/dL (0.00-1.30); Calcium 9.3 mg/dL (8.4-10.2)
--- NOTE | 2021-06-05 19:22 | Progress Note ---
Assessment and Plan Assessment and plan: 80-year-old male with history of dementia and hypertension who lives in an assisted facility was recently diagnosed with COVID-19 and presented to ED on 05/20/2020 with general weakness and discharged back to [facility]. Patient is now brought back to ED with worsening general weakness and lethargy. Not eating or drinking well. Patient is confused and unable to answer questions appropriately. Able to move all 4 extremities. No fever or chills. (1) acute to COVID-19 infection with anorexia and poor p.o. intake Current Visit: Yes Status: Acute Plan to address problem: Patient not eating or drinking well, severely dehydrated Likely Covid related etiology (2) dehydration with hypernatremia Current Visit: Yes Status: Acute Plan to address problem: D5W to half-normal saline gentlyimproving Nephrology consulted and following (3) CHANDLER (acute kidney injury) from dehydration due to poor p.o. intake Current Visit: Yes Status: Acute Plan to address problem: Continue IV fluids for hydration Vasomotor nephropathy Nephrology consulted/following Creatinine improving, Will monitor closely acute hypoxic respiratory failure Chest x-ray unremarkable and lungs clear Not in acute respiratory distress currently Unclear if the patient has pneumonia, Aspiration is a possibility but lung sounds clear Wean O2 as tolerated. leukocytosis with lactic acidosis Remains afebrile, procalcitonin normal Chest x-ray unremarkable, UA negative for UTI. Blood cultures negative to date Unclear if etiology is sepsis or just severe dehydration, aspiration is a possibility. Lactic acid improving, will continue with fluids Leukocytosis improving without antibiotic intervention Will continue to monitor closely. (4) Hypertension Current Visit: Yes Status: Chronic Qualifiers: Hypertension type: primary hypertension Qualified Code(s): I10 - Essential (primary) hypertension Plan to address problem: Continue antihypertensives as tolerated but avoid hypotension since has CHANDLER (5) CAD (coronary artery disease) Current Visit: Yes Status: Chronic Qualifiers: Coronary Disease-Associated Artery/Lesion type: [place] artery [place] vs. transplanted heart: [place] heart Plan to address problem: Continue aspirin and isosorbide mononitrate chronic A. fib, currently RVR Off his home meds Digoxin 0.5 mg x 1 dose on 06/04 Resume home meds and diet On chronic Coumadin therapy (6) Coagulopathy Current Visit: Yes Status: Acute Plan to address problem: INR is high at 6.5 Likely due to poor p.o. intake Hold Coumadin for now and monitor INR daily (7) Malnutrition Current Visit: Yes Status: Chronic Qualifiers: Protein-calorie malnutrition severity: moderate Plan to address problem: Dietary supplements requested (8) Transaminitis Current Visit: Yes Status: Acute Plan to address problem: AST and ALT are elevated--96 and 65 on the day of admission Could be related to acute COVID-19 infection Acute hepatitis profile negative (9) history of dementiaworsening mental status Current Visit: Yes Status: Chronic Plan to address problem: Likely due to dehydration, hypernatremia, COVID-19 and other infectious process. Currently calm and cooperative, remains very confused Mental health consult (10) Elevated brain natriuretic peptide (BNP) level Current Visit: Yes Status: Acute Plan to address problem: EchocardiogramLV size and function normal, LVEF 55 to 60%, mild LVH, normal atria, RV size mildly increased and RV function could not be ascertained. The rest of the study unremarkable. (11) Rhabdomyolysis Current Visit: Yes Status: Acute Qualifiers: Rhabdomyolysis type: non-traumatic Qualified Code(s): M62.82 - Rhabdomyolysis Plan to address problem: IV fluids for now and monitor his creatinine kinase (12) DVT prophylaxis Current Visit: Yes Status: Acute Plan to address problem: INR is still therapeutic (13) Advance care planning Current Visit: Yes Status: Acute Plan to address problem: Family counseled about disease education, care planning diagnosis and prognosis. Patient is full code. Family acknowledges understanding and agreement with care plan. +30 minutes. Discussed with the nursing staff and CM History Interval history: Patient remains awake but very confused. Talking coherently and appears to have visual hallucinations. On 4 L O2. Remains afebrile with stable since. Receiving IV fluids and urine output remains on low. Creatinine and leukocytosis improving. Hospitalist Physical - Constitutional Vitals: Temp Pulse Resp BP Pulse Ox 98.3 F 73 16 124/59 94 06/05/21 04:16 06/05/21 04:16 06/05/21 04:16 06/05/21 04:16 06/05/21 10:00 General appearance: Present: no acute distress, other (Awake, verbal, very confused with incoherent speech) - EENT Eyes: Present: PERRL, EOM intact ENT: clear oral mucosa - Neck Neck: Present: supple - Respiratory Respiratory effort: normal Respiratory: bilateral: CTA - Cardiovascular Rhythm: irregularly irregular (A. fib, rate controlled) - Extremities Extremities: No edema - Abdominal General gastrointestinal: soft, non-tender, non-distended - Integumentary Integumentary: Absent: rash - Psychiatric Psychiatric: other (Very confused) - Neurologic Neurologic: other (Awake, very confused, talking to himself, appears to have visual aspiration, able to move all extremities.) HEART Score - HEART Score Troponin: Troponin T 0.026 ng/mL (0.00-0.029) 06/03/21 14:09 Results - Labs CBC & Chem 7: 06/05/21 10:27 06/05/21 10:27 Labs: Laboratory Last Values WBC 11.6 K/mm3 (4.5-11.0) H 06/05/21 10:27 RBC 5.51 M/mm3 (3.65-5.03) H 06/05/21 10:27 Hgb 15.2 gm/dl (11.8-15.2) 06/05/21 10:27 Hct 48.9 % (35.5-45.6) H 06/05/21 10:27 MCV 89 fl (84-94) 06/05/21 10:27 MCH 28 pg (28-32) 06/05/21 10:27 MCHC 31 % (32-34) L 06/05/21 10:27 RDW 14.9 % (13.2-15.2) 06/05/21 10:27 Plt Count 327 K/mm3 (140-440) 06/05/21 10:27 Lymph % (Auto) 10.4 % (13.4-35.0) L 06/05/21 10:27 [place] % (Auto) 11.8 % (0.0-7.3) H 06/05/21 10:27 Eos % (Auto) 0.1 % (0.0-4.3) 06/05/21 10:27 Baso % (Auto) 0.3 % (0.0-1.8) 06/05/21 10:27 Lymph # (Auto) 1.2 K/mm3 (1.2-5.4) 06/05/21 10:27 [place] # (Auto) 1.4 K/mm3 (0.0-0.8) H 06/05/21 10:27 Eos # (Auto) 0.0 K/mm3 (0.0-0.4) 06/05/21 10:27 Baso # (Auto) 0.0 K/mm3 (0.0-0.1) 06/05/21 10:27 Seg Neutrophils % 77.4 % (40.0-70.0) H 06/05/21 10:27 Seg Neutrophils # 9.0 K/mm3 (1.8-7.7) H 06/05/21 10:27 PT 54.1 Sec. (12.2-14.9) H 06/05/21 10:27 INR 5.56 (0.87-1.13) H* 06/05/21 10:27 APTT 69.2 Sec. (24.2-36.6) H* 06/03/21 14:09 Sodium 147 mmol/L (137-145) H D 06/05/21 10:27 Potassium 5.0 mmol/L (3.6-5.0) 06/05/21 10:27 Chloride 108.0 mmol/L (98-107) H 06/05/21 10:27 Carbon Dioxide 22 mmol/L (22-30) 06/05/21 10:27 Anion Gap 22 mmol/L 06/05/21 10:27 BUN 41 mg/dL (9-20) H 06/05/21 10:27 Creatinine 1.5 mg/dL (0.8-1.3) H 06/05/21 10:27 Estimated GFR 54 ml/min 06/05/21 10:27 BUN/Creatinine Ratio 27 % 06/05/21 10:27 Glucose 127 mg/dL (75-100) H 06/05/21 10:27 POC Glucose 125 mg/dL (70-105) H 06/05/21 17:45 Lactic Acid 3.90 mmol/L (0.7-2.0) H* 06/05/21 10:27 Calcium 9.3 mg/dL (8.4-10.2) 06/05/21 10:27 Total Bilirubin 0.70 mg/dL (0.1-1.2) 06/05/21 10:27 Direct Bilirubin < 0.2 mg/dL (0-0.2) 06/03/21 14:09 Indirect Bilirubin 0.2 mg/dL 06/03/21 14:09 AST 100 units/L (5-40) H 06/05/21 10:27 ALT 63 units/L (7-56) H 06/05/21 10:27 Alkaline Phosphatase 73 units/L (35-129) 06/05/21 10:27 Ammonia 13.0 umol/L (25-60) L 06/03/21 14:09 Total Creatine Kinase 3093 units/L (55-170) H 06/05/21 10:27 Troponin T 0.026 ng/mL (0.00-0.029) 06/03/21 14:09 C-Reactive Protein 14.40 mg/dL (0.00-1.30) H 06/05/21 10:27 Total Protein 7.5 g/dL (6.3-8.2) 06/05/21 10:27 Albumin 2.6 g/dL (3.9-5) L 06/05/21 10:27 Albumin/Globulin Ratio 0.5 % 06/05/21 10:27 Procalcitonin 0.25 ng/mL (<0.15) 06/05/21 10:27 TSH 2.100 mlU/mL (0.270-4.200) 06/03/21 14:09 Urine Color Yellow (Yellow) 06/04/21 Unknown Urine Turbidity Clear (Clear) 06/04/21 Unknown Urine pH 5.0 (5.0-7.0) 06/04/21 Unknown Ur Specific [place] 1.025 (1.003-1.030) 06/04/21 Unknown Urine Protein <15 mg/dl mg/dL (Negative) 06/04/21 Unknown Urine Glucose (UA) Neg mg/dL (Negative) 06/04/21 Unknown Urine Ketones Neg mg/dL (Negative) 06/04/21 Unknown Urine Blood Mod (Negative) 06/04/21 Unknown Urine Nitrite Neg (Negative) 06/04/21 Unknown Urine Bilirubin Neg (Negative) 06/04/21 Unknown Urine Urobilinogen < 2.0 mg/dL (<2.0) 06/04/21 Unknown Ur Leukocyte Esterase Neg (Negative) 06/04/21 Unknown Urine WBC (Auto) < 1.0 /HPF (0.0-6.0) 06/04/21 Unknown Urine RBC (Auto) < 1.0 /HPF (0.0-6.0) 06/04/21 Unknown Coronavirus (PCR) Negative (Negative) 06/05/21 Unknown Hepatitis A IgM Ab Non-reactive (NonReactive) 06/04/21 12:34 Hep Bs Antigen Non-reactive (Negative) 06/04/21 12:34 Hep B Core IgM Ab Non-reactive (NonReactive) 06/04/21 12:34 Hepatitis C Antibody Non-reactive (NonReactive) 06/04/21 12:34 Microbiology: Microbiology 06/03/21 14:09 Peripheral/Venous Blood Culture - Preliminary NO GROWTH AFTER 48 HOURS 06/03/21 14:09 Peripheral/Venous Blood Culture - Preliminary NO GROWTH AFTER 48 HOURS 06/04/21 Unknown Urine,Clean Catch Urine Culture - Preliminary NO GROWTH AFTER 24 HOURS Salgado/IV: Voiding Method Condom Catheter Active Medications - Current Medications Current Medications: Generic Name Dose Route Start Last Admin Trade Name Freq PRN Reason Stop Dose Admin Acetaminophen 650 mg 06/03/21 21:43 Acetaminophen 325 Mg Tab PO Q4H PRN Pain MILD(1-3)/Fever >100.5/THAYER Cetirizine HCl 10 mg 06/04/21 10:00 06/05/21 10:54 Cetirizine 10 Mg Tab PO 10 mg QDAY PATRICA Administration Diltiazem HCl 120 mg 06/03/21 22:00 06/05/21 12:16 Diltiazem Cd 120 Mg Cap PO 120 mg QDAY PATRICA Administration Divalproex Sodium 250 mg 06/03/21 22:00 06/04/21 22:[address] 250 Mg Tab PO 250 mg QHS PATRICA Administration Dextrose 1,000 mls @ 125 mls/hr 06/03/21 22:00 06/05/21 04:18 D5w IV 125 mls/hr DIRECT PATRICA Administration Isosorbide Mononitrate 30 mg 06/03/21 22:00 06/05/21 10:53 Isosorbide Mononitrate Er 30 Mg Tab PO 30 mg DAILY PATRICA Administration Memantine 10 mg 06/03/21 22:00 06/05/21 12:16 Memantine 10 Mg Tab PO 10 mg QDAY PATRICA Administration Miscellaneous Medication 1 drop 06/03/21 22:00 06/04/21 00:41 Azelastine Hcl 0.05% OU Not Given BID PATRICA Ondansetron HCl 4 mg 06/03/21 21:43 Ondansetron 4 Mg/2 Ml Inj IV Q8H PRN Nausea And Vomiting Quetiapine Fumarate 25 mg 06/03/21 22:00 06/04/21 22:09 Quetiapine 25 Mg Tab PO 25 mg QHS PATRICA Administration Sodium Chloride 10 ml 06/03/21 22:00 06/05/21 10:54 Sodium Chloride 0.9% 10 Ml Flush Syringe IV 10 ml BID PATRICA Administration Sodium Chloride 10 ml 06/04/21 08:12 Sodium Chloride 0.9% 50 Ml Ivpb IV PRN PRN FLUSH Nutrition/Malnutrition Assess - Dietary Evaluation Nutrition/Malnutrition Findings: Nutrition Notes Start: 06/04/21 15:43 Freq: Status: Active Protocol: Document 06/04/21 15:43 TWILA (Rec: 06/04/21 16:06 TWILA [id number]) Nutrition Notes Need for Assessment generated from: MD Order Initial or Follow up Assessment Current Diagnosis Acute Kidney Injury,Coronary Artery Disease,Hypertension Other Pertinent Diagnosis Failure to thrive, Transaminitis, Elev BNP, Rabdomyolysis, Hypernatremia. Current Diet Dietary Supplements (since L 06/04). Labs/Tests 06/04: Na 158, Cl 119.3, BUN 44, Crea 1.5, Glu 128. Pertinent Medications 06/04: D5w 1000ml @ 125 ml/hr, others nutritionally unremarkable. Height 5 ft 11 in Weight 74.389 kg [place] Body Weight (kg) 78.18 BMI 22.8 Intake Prior to Admission Poor Weight change and time frame None reported at admission. Weight Status Appropriate Subjective/Other Information RD consult for dietary supplementation assessment. No reports available on Pt's PO intake of meals at the time . Pt's family stated that Pt has been having poor appetite since discharged 2 weeks ago from COVID-19 infection, also presented AMS. No further information at the time on charts. Percent of energy/protein needs met: Dietary Supplements will compensate for possible Poor or insufficient PO intake of meals with 1,050 Kcal and 60 g of protein. Burn Absent Trauma Absent GI Symptoms None Food Allergy No Skin Integrity/Comment Clear, warm, dry. Current % PO Poor (25-49%) #1 Nutrition Diagnosis Inadequate protein-energy intake Etiology Uncertain at the time. As Evidenced by Signs and Symptoms Failure to thrive and poor PO intake of meals [employer]. Is patient on ventilator? No Is Patient Ambulatory and/or Out of Bed Yes REE-([place]. Jeor-ambulatory/OOB) [ 1905.826 [id number]] Kcal/Kg value to use for calculation 20 Approximate Energy Requirements Using 1488 kcal/Kg Calculation Used for Recommendations Kcal/kg Additional Notes Protein: 1-1.2 g/Kg; 74-89 g/ day. Fluids: 1 ml/Kcal, or as per MD. Nutrition Intervention Add Supplement/Snack (indicate name/kcal 8 fl oz Ensure Enlive; TID. /protein ) Provides kCal: 1,050 Provides Protein (gm) 60 Goal #1 Compensate, through dietary supplementation, for possible poor or insufficient PO intake of meals during LOS. Follow-Up By: 06/07/21 Additional Comments Continue monitoring food tolerance, %PO intake of meals , and BM.
[2021-06-05] MEDS: QUEtiapine 25 MG TAB PO SCH (21:34)
[2021-06-05] MEDS: DIVALPROEX DR 250 MG TAB PO SCH (21:34)
[2021-06-06] MEDS: DEXTROSE 5% IN WATER 1,000 ML IV SCH (01:14)
[2021-06-06 06:35] LABS: INR 4.9 (0.87-1.13)
[2021-06-06 09:05] LABS: Hematocrit 42.2 % (35.5-45.6); Hemoglobin 13.4 gm/dl (11.8-15.2); Mean Corpuscular HGB Conc 32 % (32-34); Mean Corpuscular Volume 87 fl (84-94); Platelet Count 300 K/mm3 (140-440); Red Blood Count 4.84 M/mm3 (3.65-5.03); Red Cell Distribution Width 14.5 % (13.2-15.2)
[2021-06-06 09:44] LABS: Albumin 2.4 g/dL (3.9-5); Calcium 8.3 mg/dL (8.4-10.2)
[2021-06-06 10:23] LABS: Basophils % (Manual) 0 % (0.0-1.8); Eosinophils % (Manual) 0 % (0.0-4.3); Myelocytes # (Manual) 0.3 K/mm3; Platelet Estimate Consistent w Auto; RBC Morphology Normal; Total Cells Counted 100
--- NOTE | 2021-06-06 10:32 | Progress Note ---
Assessment and Plan # CHANDLER: creatinine 1.7->1.6 this AM, was 1.2 on 05/20. Likely pre-renal injury, mild rhabdomyolysis given history with concurrent hypernatremia, hypercalcemia. - Continue IVF as tolerated, echo reviewed and fairly stable- note that he is on D5W given hypernatremia, will switch to NS given resolution of hypernatremia - avoid nephrotoxins - renally dose medications - urinalysis reviewed, note blood, defer serologies/GN workup given history, age - defer imaging, ensure no retention - I/O - maintain MAP>70 - AM labs # Hypernatremia: improved, can stop D5W now, encourage po hydration as able # Hypercalcemia: improved with IVF, likely dehydration # Rhabdomyolysis: CK >3000->5900, continue IVF, trend CK # Lactic Acidosis: ensure no infection, IVF as tolerated, note recent COVID-19 diagnosis # Failure to Thrive, Hypoalbuminemia, Malnutrition: management per primary, psych # HTN: BP reasonable # CAD: on ASA # Coagulopathy: note high INR Subjective Date of service: 06/06/21 Interval history: Remains lying in bed, sleeping, minimally interactive Objective - Exam Narrative Exam: General appearance: cachectic, chronically ill, frail EENT: ATNC Neck: no JVD Respiratory: Present: Clear to Ascultation Cardiology: regular Gastrointestinal: normoactive bowel sounds Integumentary: no rash, warm and dry Neurologic: no focal deficit, confused, disoriented Psychiatric: other (calm) - Vital Signs Vital signs: Vital Signs - 12hr 06/05/21 06/06/21 23:37 04:34 Temperature 98.6 F 99.2 F Pulse Rate 67 116 H Respiratory 18 18 Rate Blood Pressure 116/91 108/81 O2 Sat by Pulse 94 91 Oximetry - Lab 06/06/21 08:32 06/06/21 08:32 Most recent lab results Calcium 8.3 mg/dL (8.4-10.2) L 06/06/21 08:32 Medications & Allergies - Medications Allergies/Adverse Reactions: Allergies No Known Allergies Allergy (Unverified 05/20/21 14:16) Home Medications: Home Medications Medication Instructions Recorded Confirmed Last Taken Type Aspirin 325 mg PO QDAY 06/03/21 06/03/21 06/02/21 History Azelastine HCl 0.05% 0.05 mg OU BID 06/03/21 06/03/21 06/02/21 History Azelastine HCl 0.05% 1 drop OU BID 06/03/21 06/03/21 06/02/21 History Cyanocobalamin (Vitamin B-12) 1,000 mcg PO QDAY 06/03/21 06/03/21 06/02/21 History Diltiazem 24Hr ER (Cd) 120 mg PO QDAY 06/03/21 06/03/21 06/02/21 History Divalproex Sodium 250 mg PO QHS 06/03/21 06/03/21 06/02/21 History ISOSORBIDE MONOnitrate 30 mg PO DAILY 06/03/21 06/03/21 06/02/21 History Memantine HCl 10 mg PO QDAY 06/03/21 06/03/21 06/02/21 History QUEtiapine 25 mg PO QHS 06/03/21 06/03/21 06/02/21 History Warfarin [Coumadin] 5 mg PO QDAY 06/03/21 06/03/21 06/02/21 History ZyrTEC 10mg cap 10 mg PO QDAY 06/03/21 06/03/21 06/02/21 History Active Medications: Generic Name Dose Route Start Last Admin Trade Name Freq PRN Reason Stop Dose Admin Acetaminophen 650 mg 06/03/21 21:43 Acetaminophen 325 Mg Tab PO Q4H PRN Pain MILD(1-3)/Fever >100.5/THAYER Cetirizine HCl 10 mg 06/04/21 10:00 06/05/21 10:54 Cetirizine 10 Mg Tab PO 10 mg QDAY PATRICA Administration Diltiazem HCl 120 mg 06/03/21 22:00 06/05/21 12:16 Diltiazem Cd 120 Mg Cap PO 120 mg QDAY PATRICA Administration Divalproex Sodium 250 mg 06/03/21 22:00 06/05/21 21:[address] 250 Mg Tab PO 250 mg QHS PATRICA Administration Dextrose 1,000 mls @ 125 mls/hr 06/03/21 22:00 06/06/21 01:14 D5w IV 125 mls/hr DIRECT PATRICA Administration Isosorbide Mononitrate 30 mg 06/03/21 22:00 06/05/21 10:53 Isosorbide Mononitrate Er 30 Mg Tab PO 30 mg DAILY PATRICA Administration Memantine 10 mg 06/03/21 22:00 06/05/21 12:16 Memantine 10 Mg Tab PO 10 mg QDAY PATRICA Administration Miscellaneous Medication 1 drop 06/03/21 22:00 06/04/21 00:41 Azelastine Hcl 0.05% OU Not Given BID PATRICA Ondansetron HCl 4 mg 06/03/21 21:43 Ondansetron 4 Mg/2 Ml Inj IV Q8H PRN Nausea And Vomiting Quetiapine Fumarate 25 mg 06/03/21 22:00 06/05/21 21:34 Quetiapine 25 Mg Tab PO 25 mg QHS PATRICA Administration Sodium Chloride 10 ml 06/03/21 22:00 06/05/21 21:39 Sodium Chloride 0.9% 10 Ml Flush Syringe IV Not Given BID PATRICA Sodium Chloride 10 ml 06/04/21 08:12 Sodium Chloride 0.9% 50 Ml Ivpb IV PRN PRN FLUSH
[2021-06-06] MEDS: SODIUM CHLORIDE 0.9% 1000 ML 1,000 ML IV SCH (11:34)
[2021-06-06] MEDS: CETIRIZINE 10 MG TAB PO SCH (11:34)
[2021-06-06] MEDS: dilTIAZem CD 120 MG CAP PO SCH (11:35)
[2021-06-06] MEDS: MEMANTINE 10 MG TAB PO SCH (11:36)
[2021-06-06 11:59] LABS: C-Reactive Protein 12.4 mg/dL (0.00-1.30)
--- NOTE | 2021-06-06 19:18 | Progress Note ---
Assessment and Plan Assessment and plan: 80-year-old male with history of dementia and hypertension who lives in an assisted facility was recently diagnosed with COVID-19 and presented to ED on 05/20/2020 with general weakness and discharged back to [facility]. Patient is now brought back to ED with worsening general weakness and lethargy. Not eating or drinking well. Patient is confused and unable to answer questions appropriately. Able to move all 4 extremities. No fever or chills. (1) acute to COVID-19 infection with anorexia and poor p.o. intake Current Visit: Yes Status: Acute Plan to address problem: Patient not eating or drinking well, severely dehydrated Likely Covid related etiology (2) dehydration with hypernatremia Current Visit: Yes Status: Acute Plan to address problem: D5W to half-normal saline gentlyimproving Nephrology consulted and following (3) CHANDLER (acute kidney injury) from dehydration due to poor p.o. intake Current Visit: Yes Status: Acute Plan to address problem: Continue IV fluids for hydration Vasomotor nephropathy Nephrology consulted/following Creatinine improving, Will monitor closely Ordered renal ultrasound acute hypoxic respiratory failure Chest x-ray unremarkable and lungs clear Mildly dyspneic needing O2 Covid pneumonia as expected Aspiration is a possibility but lung sounds clear Started Decadron on 06/07 Not a candidate for remdesivir since CHANDLER and the onset of symptoms more than 2 weeks ago. leukocytosis with lactic acidosis Remains afebrile, procalcitonin normal Chest x-ray unremarkable, UA negative for UTI. Urine and blood cultures negati ve to date Unclear if etiology is sepsis or just severe dehydration, aspiration is a possibility. Lactic acid improving, will continue with fluids Leukocytosis improving without antibiotic intervention Will continue to monitor closely. (4) Hypertension Current Visit: Yes Status: Chronic Qualifiers: Hypertension type: primary hypertension Qualified Code(s): I10 - Essential (primary) hypertension Plan to address problem: Continue antihypertensives as tolerated but avoid hypotension since has CHANDLER (5) CAD (coronary artery disease) Current Visit: Yes Status: Chronic Qualifiers: Coronary Disease-Associated Artery/Lesion type: [place] artery [place] vs. transplanted heart: [place] heart Plan to address problem: Continue aspirin and isosorbide mononitrate chronic A. fib, currently RVR Off his home meds Digoxin 0.5 mg x 1 dose on 06/04 Resume home meds and diet On chronic Coumadin therapy Started IV Lopressor for RVR on 06/07 (6) Coagulopathy Current Visit: Yes Status: Acute Plan to address problem: INR is high at 6.5 Likely due to poor p.o. intake Hold Coumadin for now and monitor INR daily (7) Malnutrition Current Visit: Yes Status: Chronic Qualifiers: Protein-calorie malnutrition severity: moderate Plan to address problem: Dietary supplements requested (8) Transaminitis Current Visit: Yes Status: Acute Plan to address problem: AST and ALT are elevated--96 and 65 on the day of admission Could be related to acute COVID-19 infection Acute hepatitis profile negative (9) history of dementiaworsening mental status Current Visit: Yes Status: Chronic Plan to address problem: Likely due to dehydration, hypernatremia, COVID-19 and other infectious process. Currently calm and cooperative, remains very confused Mental health consult (10) Elevated brain natriuretic peptide (BNP) level Current Visit: Yes Status: Acute Plan to address problem: EchocardiogramLV size and function normal, LVEF 55 to 60%, mild LVH, normal atria, RV size mildly increased and RV function could not be ascertained. The rest of the study unremarkable. (11) Rhabdomyolysis Current Visit: Yes Status: Acute Qualifiers: Rhabdomyolysis type: non-traumatic Qualified Code(s): M62.82 - Rhabdomyolysis Plan to address problem: IV fluids for now and monitor his creatinine kinase (12) DVT prophylaxis Current Visit: Yes Status: Acute Plan to address problem: INR is still therapeutic (13) Advance care planning Current Visit: Yes Status: Acute Plan to address problem: Family counseled about disease education, care planning diagnosis and prognosis. Patient is full code. Family acknowledges understanding and agreement with care plan. Time spent in direct patient care: More than 30 minutes Discussed with the nursing staff and CM History Interval history: Patient remains awake, verbal but confused. Talking to himself/disoriented. Afebrile with stable BP but A. fib with RVR. IV Lopressor added. Remains mildly dyspneic with hypoxia, started dexamethasone. RN performed a bedside swallow evaluation and started on pured diet today. Intermittent pulling out condom cath. Urine output likely not accurately accounted for. Hospitalist Physical - Constitutional Vitals: Temp Pulse Resp BP Pulse Ox 99.2 F 116 H 18 108/81 91 06/06/21 04:34 06/06/21 04:34 06/06/21 04:34 06/06/21 04:34 06/06/21 04:34 General appearance: Present: no acute distress, other (Awake, verbal, very confused with incoherent speech) - EENT Eyes: Present: PERRL, EOM intact ENT: clear oral mucosa - Neck Neck: Present: supple - Respiratory Respiratory effort: normal Respiratory: bilateral: diminished - Cardiovascular Rhythm: irregularly irregular (A. fib with RVR) - Extremities Extremities: No edema - Abdominal General gastrointestinal: soft, non-tender, non-distended - Integumentary Integumentary: Absent: rash - Psychiatric Psychiatric: no agitated - Neurologic Neurologic: moves all extremities, other (Awake, verbal confused/disoriented.) HEART Score - HEART Score Troponin: Troponin T 0.026 ng/mL (0.00-0.029) 06/03/21 14:09 Results - Labs CBC & Chem 7: 06/07/21 06:01 06/07/21 06:01 Labs: Laboratory Last Values WBC 11.4 K/mm3 (4.5-11.0) H 06/06/21 08:32 RBC 4.84 M/mm3 (3.65-5.03) 06/06/21 08:32 Hgb 13.4 gm/dl (11.8-15.2) 06/06/21 08:32 Hct 42.2 % (35.5-45.6) D 06/06/21 08:32 MCV 87 fl (84-94) 06/06/21 08:32 MCH 28 pg (28-32) 06/06/21 08:32 MCHC 32 % (32-34) 06/06/21 08:32 RDW 14.5 % (13.2-15.2) 06/06/21 08:32 Plt Count 300 K/mm3 (140-440) 06/06/21 08:32 Lymph % (Auto) 10.4 % (13.4-35.0) L 06/05/21 10:27 [place] % (Auto) 11.8 % (0.0-7.3) H 06/05/21 10:27 Eos % (Auto) 0.1 % (0.0-4.3) 06/05/21 10:27 Baso % (Auto) 0.3 % (0.0-1.8) 06/05/21 10:27 Lymph # (Auto) 1.2 K/mm3 (1.2-5.4) 06/05/21 10:27 [place] # (Auto) 1.4 K/mm3 (0.0-0.8) H 06/05/21 10:27 Eos # (Auto) 0.0 K/mm3 (0.0-0.4) 06/05/21 10:27 Baso # (Auto) 0.0 K/mm3 (0.0-0.1) 06/05/21 10:27 Add Manual Diff Complete 06/06/21 08:32 Total Counted 100 06/06/21 08:32 Seg Neutrophils % 77.4 % (40.0-70.0) H 06/05/21 10:27 Seg Neuts % (Manual) 74.0 % (40.0-70.0) H 06/06/21 08:32 Band Neutrophils % 0 % 06/06/21 08:32 Lymphocytes % (Manual) 13.0 % (13.4-35.0) L 06/06/21 08:32 Reactive Lymphs % (Man) 0 % 06/06/21 08:32 Monocytes % (Manual) 10.0 % (0.0-7.3) H 06/06/21 08:32 Eosinophils % (Manual) 0 % (0.0-4.3) 06/06/21 08:32 Basophils % (Manual) 0 % (0.0-1.8) 06/06/21 08:32 Metamyelocytes % 0 % 06/06/21 08:32 Myelocytes % 3.0 % 06/06/21 08:32 Promyelocytes % 0 % 06/06/21 08:32 Blast Cells % 0 % 06/06/21 08:32 Nucleated RBC % Not Reportable 06/06/21 08:32 Seg Neutrophils # 9.0 K/mm3 (1.8-7.7) H 06/05/21 10:27 Seg Neutrophils # Man 8.4 K/mm3 (1.8-7.7) H 06/06/21 08:32 Band Neutrophils # 0.0 K/mm3 06/06/21 08:32 Lymphocytes # (Manual) 1.5 K/mm3 (1.2-5.4) 06/06/21 08:32 Abs React Lymphs (Man) 0.0 K/mm3 06/06/21 08:32 Monocytes # (Manual) 1.1 K/mm3 (0.0-0.8) H 06/06/21 08:32 Eosinophils # (Manual) 0.0 K/mm3 (0.0-0.4) 06/06/21 08:32 Basophils # (Manual) 0.0 K/mm3 (0.0-0.1) 06/06/21 08:32 Metamyelocytes # 0.0 K/mm3 06/06/21 08:32 Myelocytes # 0.3 K/mm3 06/06/21 08:32 Promyelocytes # 0.0 K/mm3 06/06/21 08:32 Blast Cells # 0.0 K/mm3 06/06/21 08:32 WBC Morphology Not Reportable 06/06/21 08:32 Hypersegmented Neuts Not Reportable 06/06/21 08:32 Hyposegmented Neuts Not Reportable 06/06/21 08:32 Hypogranular Neuts Not Reportable 06/06/21 08:32 Smudge Cells Not Reportable 06/06/21 08:32 Toxic Granulation Not Reportable 06/06/21 08:32 Toxic Vacuolation Not Reportable 06/06/21 08:32 Dohle Bodies Not Reportable 06/06/21 08:32 Pelger-Huet Anomaly Not Reportable 06/06/21 08:32 Otis Rods Not Reportable 06/06/21 08:32 Platelet Estimate Consistent w auto 06/06/21 08:32 Clumped Platelets Not Reportable 06/06/21 08:32 Plt Clumps, EDTA Not Reportable 06/06/21 08:32 Large Platelets Not Reportable 06/06/21 08:32 Giant Platelets Not Reportable 06/06/21 08:32 Platelet Satelliting Not Reportable 06/06/21 08:32 Plt Morphology Comment Not Reportable 06/06/21 08:32 RBC Morphology Normal 06/06/21 08:32 Dimorphic RBCs Not Reportable 06/06/21 08:32 Polychromasia Not Reportable 06/06/21 08:32 Hypochromasia Not Reportable 06/06/21 08:32 Poikilocytosis Not Reportable 06/06/21 08:32 Anisocytosis Not Reportable 06/06/21 08:32 Microcytosis Not Reportable 06/06/21 08:32 Macrocytosis Not Reportable 06/06/21 08:32 Spherocytes Not Reportable 06/06/21 08:32 Pappenheimer Bodies Not Reportable 06/06/21 08:32 Sickle Cells Not Reportable 06/06/21 08:32 Target Cells Not Reportable 06/06/21 08:32 Tear Drop Cells Not Reportable 06/06/21 08:32 Ovalocytes Not Reportable 06/06/21 08:32 Helmet Cells Not Reportable 06/06/21 08:32 [place] Bodies Not Reportable 06/06/21 08:32 Davis Rings Not Reportable 06/06/21 08:32 Teodora Cells Not Reportable 06/06/21 08:32 Bite Cells Not Reportable 06/06/21 08:32 Crenated Cell Not Reportable 06/06/21 08:32 Elliptocytes Not Reportable 06/06/21 08:32 Acanthocytes (Spur) Not Reportable 06/06/21 08:32 Rouleaux Not Reportable 06/06/21 08:32 Hemoglobin C Crystals Not Reportable 06/06/21 08:32 Schistocytes Not Reportable 06/06/21 08:32 Malaria parasites Not Reportable 06/06/21 08:32 Cresencio Bodies Not Reportable 06/06/21 08:32 Hem Pathologist Commnt No 06/06/21 08:32 PT 49.0 Sec. (12.2-14.9) H 06/06/21 05:43 INR 4.90 (0.87-1.13) H 06/06/21 05:43 APTT 69.2 Sec. (24.2-36.6) H* 06/03/21 14:09 Sodium 139 mmol/L (137-145) D 06/06/21 08:32 Potassium 5.4 mmol/L (3.6-5.0) H 06/06/21 08:32 Chloride 104.2 mmol/L (98-107) 06/06/21 08:32 Carbon Dioxide 24 mmol/L (22-30) 06/06/21 08:32 Anion Gap 16 mmol/L 06/06/21 08:32 BUN 43 mg/dL (9-20) H 06/06/21 08:32 Creatinine 1.6 mg/dL (0.8-1.3) H 06/06/21 08:32 Estimated GFR 50 ml/min 06/06/21 08:32 BUN/Creatinine Ratio 27 % 06/06/21 08:32 Glucose 163 mg/dL (75-100) H 06/06/21 08:32 POC Glucose 128 mg/dL (70-105) H 06/06/21 16:29 Lactic Acid 3.90 mmol/L (0.7-2.0) H* 06/05/21 10:27 Calcium 8.3 mg/dL (8.4-10.2) L 06/06/21 08:32 Total Bilirubin 0.80 mg/dL (0.1-1.2) 06/06/21 08:32 Direct Bilirubin < 0.2 mg/dL (0-0.2) 06/03/21 14:09 Indirect Bilirubin 0.2 mg/dL 06/03/21 14:09 AST 157 units/L (5-40) H 06/06/21 08:32 ALT 61 units/L (7-56) H 06/06/21 08:32 Alkaline Phosphatase 73 units/L (35-129) 06/06/21 08:32 Ammonia 13.0 umol/L (25-60) L 06/03/21 14:09 Total Creatine Kinase 5494 units/L (55-170) H 06/06/21 08:32 Troponin T 0.026 ng/mL (0.00-0.029) 06/03/21 14:09 C-Reactive Protein 12.40 mg/dL (0.00-1.30) H 06/06/21 08:32 Total Protein 7.0 g/dL (6.3-8.2) 06/06/21 08:32 Albumin 2.4 g/dL (3.9-5) L 06/06/21 08:32 Albumin/Globulin Ratio 0.5 % 06/06/21 08:32 Procalcitonin 0.25 ng/mL (<0.15) 06/05/21 10:27 TSH 2.100 mlU/mL (0.270-4.200) 06/03/21 14:09 Urine Color Yellow (Yellow) 06/04/21 Unknown Urine Turbidity Clear (Clear) 06/04/21 Unknown Urine pH 5.0 (5.0-7.0) 06/04/21 Unknown Ur Specific [place] 1.025 (1.003-1.030) 06/04/21 Unknown Urine Protein <15 mg/dl mg/dL (Negative) 06/04/21 Unknown Urine Glucose (UA) Neg mg/dL (Negative) 06/04/21 Unknown Urine Ketones Neg mg/dL (Negative) 06/04/21 Unknown Urine Blood Mod (Negative) 06/04/21 Unknown Urine Nitrite Neg (Negative) 06/04/21 Unknown Urine Bilirubin Neg (Negative) 06/04/21 Unknown Urine Urobilinogen < 2.0 mg/dL (<2.0) 06/04/21 Unknown Ur Leukocyte Esterase Neg (Negative) 06/04/21 Unknown Urine WBC (Auto) < 1.0 /HPF (0.0-6.0) 06/04/21 Unknown Urine RBC (Auto) < 1.0 /HPF (0.0-6.0) 06/04/21 Unknown Coronavirus (PCR) Negative (Negative) 06/05/21 Unknown Hepatitis A IgM Ab Non-reactive (NonReactive) 06/04/21 12:34 Hep Bs Antigen Non-reactive (Negative) 06/04/21 12:34 Hep B Core IgM Ab Non-reactive (NonReactive) 06/04/21 12:34 Hepatitis C Antibody Non-reactive (NonReactive) 06/04/21 12:34 Microbiology: Microbiology 06/03/21 14:09 Peripheral/Venous Blood Culture - Preliminary NO GROWTH AFTER 72 HOURS 06/03/21 14:09 Peripheral/Venous Blood Culture - Preliminary NO GROWTH AFTER 72 HOURS 06/04/21 Unknown Urine,Clean Catch Urine Culture - Final NO GROWTH AFTER 48 HOURS Salgado/IV: Voiding Method Condom Catheter Active Medications - Current Medications Current Medications: Generic Name Dose Route Start Last Admin Trade Name Freq PRN Reason Stop Dose Admin Acetaminophen 650 mg 06/03/21 21:43 Acetaminophen 325 Mg Tab PO Q4H PRN Pain MILD(1-3)/Fever >100.5/THAYER Cetirizine HCl 10 mg 06/04/21 10:00 06/06/21 11:34 Cetirizine 10 Mg Tab PO 10 mg QDAY PATRICA Administration Diltiazem HCl 120 mg 06/03/21 22:00 06/06/21 11:35 Diltiazem Cd 120 Mg Cap PO 120 mg QDAY PATRICA Administration Divalproex Sodium 250 mg 06/03/21 22:00 06/05/21 21:[address] 250 Mg Tab PO 250 mg QHS PATRICA Administration Sodium Chloride 1,000 mls @ 125 mls/hr 06/06/21 10:45 06/06/21 11:34 Nacl 0.9% 1000 Ml IV 125 mls/hr DIRECT PATRICA Administration Isosorbide Mononitrate 30 mg 06/03/21 22:00 06/06/21 11:34 Isosorbide Mononitrate Er 30 Mg Tab PO 30 mg DAILY PATRICA Administration Memantine 10 mg 06/03/21 22:00 06/06/21 11:36 Memantine 10 Mg Tab PO 10 mg QDAY PATRICA Administration Miscellaneous Medication 1 drop 06/03/21 22:00 06/04/21 00:41 Azelastine Hcl 0.05% OU Not Given BID PATRICA Ondansetron HCl 4 mg 06/03/21 21:43 Ondansetron 4 Mg/2 Ml Inj IV Q8H PRN Nausea And Vomiting Quetiapine Fumarate 25 mg 06/03/21 22:00 06/05/21 21:34 Quetiapine 25 Mg Tab PO 25 mg QHS PATRICA Administration Sodium Chloride 10 ml 06/03/21 22:00 06/06/21 11:36 Sodium Chloride 0.9% 10 Ml Flush Syringe IV 10 ml BID PATRICA Administration Sodium Chloride 10 ml 06/04/21 08:12 Sodium Chloride 0.9% 50 Ml Ivpb IV PRN PRN FLUSH Nutrition/Malnutrition Assess - Dietary Evaluation Nutrition/Malnutrition Findings: Nutrition Notes Start: 06/04/21 15:43 Freq: Status: Active Protocol: Document 06/04/21 15:43 TWILA (Rec: 06/04/21 16:06 TWILA [id number]) Nutrition Notes Need for Assessment generated from: MD Order Initial or Follow up Assessment Current Diagnosis Acute Kidney Injury,Coronary Artery Disease,Hypertension Other Pertinent Diagnosis Failure to thrive, Transaminitis, Elev BNP, Rabdomyolysis, Hypernatremia. Current Diet Dietary Supplements (since L 06/04). Labs/Tests 06/04: Na 158, Cl 119.3, BUN 44, Crea 1.5, Glu 128. Pertinent Medications 06/04: D5w 1000ml @ 125 ml/hr, others nutritionally unremarkable. Height 5 ft 11 in Weight 74.389 kg [place] Body Weight (kg) 78.18 BMI 22.8 Intake Prior to Admission Poor Weight change and time frame None reported at admission. Weight Status Appropriate Subjective/Other Information RD consult for dietary supplementation assessment. No reports available on Pt's PO intake of meals at the time . Pt's family stated that Pt has been having poor appetite since discharged 2 weeks ago from COVID-19 infection, also presented AMS. No further information at the time on charts. Percent of energy/protein needs met: Dietary Supplements will compensate for possible Poor or insufficient PO intake of meals with 1,050 Kcal and 60 g of protein. Burn Absent Trauma Absent GI Symptoms None Food Allergy No Skin Integrity/Comment Clear, warm, dry. Current % PO Poor (25-49%) #1 Nutrition Diagnosis Inadequate protein-energy intake Etiology Uncertain at the time. 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-ambulatory/OOB) [ 1905.826 [id number]] Kcal/Kg value to use for calculation 20 Approximate Energy Requirements Using 1488 kcal/Kg Calculation Used for Recommendations Kcal/kg Additional Notes Protein: 1-1.2 g/Kg; 74-89 g/ day. Fluids: 1 ml/Kcal, or as per MD. Nutrition Intervention Add Supplement/Snack (indicate name/kcal 8 fl oz Ensure Enlive; TID. /protein ) Provides kCal: 1,050 Provides Protein (gm) 60 Goal #1 Compensate, through dietary supplementation, for possible poor or insufficient PO intake of meals during LOS. Follow-Up By: 06/07/21 Additional Comments Continue monitoring food tolerance, %PO intake of meals , and BM.
[2021-06-06] MEDS: QUEtiapine 25 MG TAB PO SCH (22:59)
[2021-06-06] MEDS: DIVALPROEX DR 250 MG TAB PO SCH (23:01)
[2021-06-07 06:28] LABS: Hematocrit 35.9 % (35.5-45.6); Hemoglobin 11.9 gm/dl (11.8-15.2); Mean Corpuscular HGB Conc 33 % (32-34); Mean Corpuscular Volume 86 fl (84-94); Platelet Count 267 K/mm3 (140-440); Red Blood Count 4.17 M/mm3 (3.65-5.03); Red Cell Distribution Width 14.3 % (13.2-15.2)
[2021-06-07 06:39] LABS: INR 2.47 (0.87-1.13)
[2021-06-07 06:42] LABS: Alanine Aminotransferase 105 units/L (7-56); Albumin 2.1 g/dL (3.9-5); BUN/Creatinine Ratio 30; Blood Urea Nitrogen 33 mg/dL (9-20); Calcium 8.2 mg/dL (8.4-10.2); Hemolysis Index 11
[2021-06-07] MEDS: SODIUM CHLORIDE 0.9% 1000 ML 1,000 ML IV SCH ×2 (06:55→20:03)
[2021-06-07] MEDS ORDERED: METOPROLOL TARTRATE 5 MG/5 ML INJ IV SCH (07:00)
--- NOTE | 2021-06-07 09:42 | Ultrasound Report ---
ULTRASOUND RENAL INDICATION / CLINICAL INFORMATION: CHANDLER. COMPARISON: None available. FINDINGS: RIGHT KIDNEY: Length = 10 cm. - Echogenicity: Slightly increased - Cortical Thickness: Normal. - Hydronephrosis: None. - Cyst / Mass: None. - Stones: None seen. LEFT KIDNEY: Length = 9.9 cm. - Echogenicity: Slightly increased - Cortical Thickness: Normal. - Hydronephrosis: None. - Cyst / Mass: None. - Stones: None seen. URINARY BLADDER: No significant abnormality. FREE FLUID: None. ADDITIONAL FINDINGS: None. IMPRESSION: 1. Kidney echogenicity is slightly increased which can be seen with medical renal disease. There is n o hydronephrosis. No focal renal lesions are seen. Signer Name: Jared Garner MD Signed: 06/07/2021 9:38 AM Workstation Name: [id number]
--- NOTE | 2021-06-07 10:03 | XRay Report ---
CHEST - 1 VIEW INDICATION: Hypoxia COMPARISON: 06/03/2021 FINDINGS: SUPPORT DEVICES: Stable support device positioning. HEART: Stable cardiomediastinal silhouette. LUNGS/PLEURA: COPD changes in the lungs with probable scarring versus atelectasis in the right midlu ng. No consolidation or effusion. ADDITIONAL FINDINGS: None. IMPRESSION: Lung findings as above. Signer Name: Mani Graves MD Signed: 06/07/2021 9:59 AM Workstation Name: [id number]
[2021-06-07] MEDS: MEMANTINE 10 MG TAB PO SCH (10:52)
[2021-06-07] MEDS: dilTIAZem CD 120 MG CAP PO SCH ×2 (10:52→23:44)
[2021-06-07] MEDS: DEXAMETHASONE 4 MG TAB PO SCH (10:56)
[2021-06-07] MEDS: CETIRIZINE 10 MG TAB PO SCH (10:56)
[2021-06-07] MEDS ORDERED: dilTIAZem 25 MG/5 ML INJ IV ONE (11:41)
[2021-06-07 14:06] LABS: Anisocytosis Few; Basophils % (Manual) 0 % (0.0-1.8); Eosinophils % (Manual) 0 % (0.0-4.3); Total Cells Counted 100
[2021-06-07 14:07] LABS: Ovalocytes Few; Platelet Estimate Consistent w Auto
[2021-06-07 14:32] LABS: Chol/HDL Ratio 3.57 %
[2021-06-07] MEDS ORDERED: WARFARIN 2.5 MG TAB PO SCH (17:00)
--- NOTE | 2021-06-07 18:43 | Progress Note ---
Assessment and Plan Assessment and plan: 80-year-old male with history of dementia and hypertension who lives in an assisted facility was recently diagnosed with COVID-19 and presented to ED on 05/20/2020 with general weakness and discharged back to [facility]. Patient is now brought back to ED with worsening general weakness and lethargy. Not eating or drinking well. Patient is confused and unable to answer questions appropriately. Able to move all 4 extremities. No fever or chills. (1) acute to COVID-19 infection with anorexia and poor p.o. intake Current Visit: Yes Status: Acute Plan to address problem: Patient not eating or drinking well, severely dehydrated Likely Covid related etiology (2) dehydration with hypernatremia Current Visit: Yes Status: Acute Plan to address problem: D5W to half-normal saline gentlyimproving Nephrology consulted and following (3) CHANDLER (acute kidney injury) from dehydration due to poor p.o. intake Current Visit: Yes Status: Acute Plan to address problem: Continue IV fluids for hydration Vasomotor nephropathy Nephrology consulted/following Creatinine improving, Will monitor closely Renal ultrasound shows echogenicity consistent with medical renal disease but no hydronephrosis. Bladder unremarkable. acute hypoxic respiratory failure Chest x-ray unremarkable and lungs clear Mildly dyspneic needing O2 Covid pneumonia as expected Aspiration is a possibility but lung sounds clear Started Decadron on 06/07 Not a candidate for remdesivir since CHANDLER and the onset of symptoms more than 2 weeks ago. leukocytosis with lactic acidosis Remains afebrile, procalcitonin normal Chest x-ray unremarkable, UA negative for UTI. Urine and blood cultures negative to date Unclear if etiology is sepsis or just severe dehydration, aspiration is a possibility. Lactic acid improving, will continue with fluids Leukocytosis improving without antibiotic intervention Will continue to monitor closely. (4) Hypertension Current Visit: Yes Status: Chronic Qualifiers: Hypertension type: primary hypertension Qualified Code(s): I10 - Essential (primary) hypertension Plan to address problem: Continue antihypertensives as tolerated but avoid hypotension since has CHANDLER (5) CAD, borderline troponin Current Visit: Yes Status: Chronic Qualifiers: Coronary Disease-Associated Artery/Lesion type: [place] artery [place] vs. transplanted heart: [place] heart Plan to address problem: Continue aspirin and isosorbide mononitrate Borderline troponin could be from a A. fib/RVR or rhabdomyolysis. No chest pain, BP stable, looks comfortable chronic A. fib, currently RVR Off his home meds Digoxin 0.5 mg x 1 dose on 06/04 Resume home home oral Cardizem CD, increased to twice daily On chronic Coumadin therapy Started IV Lopressor for RVR on 06/07 (6) Coagulopathy Current Visit: Yes Status: Acute Plan to address problem: INR is high at 6.5, progressively improving Likely due to poor p.o. intake Hold Coumadin for now and monitor INR daily (7) Malnutrition Current Visit: Yes Status: Chronic Qualifiers: Protein-calorie malnutrition severity: moderate Plan to address problem: Dietary supplements requested (8) Transaminitis Current Visit: Yes Status: Acute Plan to address problem: AST and ALT are elevated--96 and 65 on the day of admission Could be related to acute COVID-19 infection Acute hepatitis profile negative (9) history of dementiaworsening mental status Current Visit: Yes Status: Chronic Plan to address problem: Likely due to dehydration, hypernatremia, COVID-19 and other infectious process. Currently calm and cooperative, remains very confused Mental health consult (10) Elevated (BNP) level, Current Visit: Yes Status: Acute Plan to address problem: EchocardiogramLV size and function normal, LVEF 55 to 60%, mild LVH, normal atria, RV size mildly increased and RV function could not be ascertained. The rest of the study unremarkable. No evidence of volume overload (11) Rhabdomyolysis Current Visit: Yes Status: Acute Qualifiers: Rhabdomyolysis type: non-traumatic Qualified Code(s): M62.82 - Rhabdomyolysis Plan to address problem: IV fluids for now and monitor his creatinine kinase (12) DVT prophylaxis Current Visit: Yes Status: Acute Plan to address problem: INR is still therapeutic (13) Advance care planning Current Visit: Yes Status: Acute Plan to address problem: Family counseled about disease education, care planning diagnosis and prognosis. Patient is full code. Family acknowledges understanding and agreement with care plan. Time spent in direct patient care: More than 30 minutes Discussed with the nursing staff and CM History Interval history: Patient remains awake, verbal but confused. Appears comfortable. Intermittent A. fib with RVR. However BP stable. Poor p.o. intake and likely missing his oral meds. Urine output not accurately recorded. Abnormal labsINR, creatinine progress improving. Remains hypoxic but not in acute respite distress. Hospitalist Physical - Constitutional Vitals: Temp Pulse Resp BP Pulse Ox 98.5 F 120 H 20 121/68 95 06/07/21 06:21 06/07/21 11:05 06/07/21 06:21 06/07/21 11:05 06/07/21 08:59 General appearance: Present: no acute distress, other (Awake, verbal, very confused with incoherent speech) - EENT Eyes: Present: PERRL, EOM intact ENT: hearing intact, other (Oral mucosa dry) - Neck Neck: Present: supple - Respiratory Respiratory effort: normal Respiratory: bilateral: CTA - Cardiovascular Rhythm: irregularly irregular - Extremities Extremities: No edema - Abdominal General gastrointestinal: soft, non-tender, non-distended, normal bowel sounds - Psychiatric Psychiatric: no agitated - Neurologic Neurologic: moves all extremities, other (Awake but confused with history of dementia. Verbal.) HEART Score - HEART Score Troponin: Troponin T 0.133 ng/mL (0.00-0.029) H* D 06/07/21 06:01 Results - Labs CBC & Chem 7: 06/08/21 04:31 06/08/21 04:31 Labs: Laboratory Last Values WBC 12.6 K/mm3 (4.5-11.0) H 06/07/21 06:01 RBC 4.17 M/mm3 (3.65-5.03) 06/07/21 06:01 Hgb 11.9 gm/dl (11.8-15.2) 06/07/21 06:01 Hct 35.9 % (35.5-45.6) D 06/07/21 06:01 MCV 86 fl (84-94) 06/07/21 06:01 MCH 29 pg (28-32) 06/07/21 06:01 MCHC 33 % (32-34) 06/07/21 06:01 RDW 14.3 % (13.2-15.2) 06/07/21 06:01 Plt Count 267 K/mm3 (140-440) 06/07/21 06:01 Lymph % (Auto) 10.4 % (13.4-35.0) L 06/05/21 10:27 [place] % (Auto) 11.8 % (0.0-7.3) H 06/05/21 10:27 Eos % (Auto) 0.1 % (0.0-4.3) 06/05/21 10:27 Baso % (Auto) 0.3 % (0.0-1.8) 06/05/21 10:27 Lymph # (Auto) 1.2 K/mm3 (1.2-5.4) 06/05/21 10:27 [place] # (Auto) 1.4 K/mm3 (0.0-0.8) H 06/05/21 10:27 Eos # (Auto) 0.0 K/mm3 (0.0-0.4) 06/05/21 10:27 Baso # (Auto) 0.0 K/mm3 (0.0-0.1) 06/05/21 10:27 Add Manual Diff Complete 06/07/21 06:01 Total Counted 100 06/07/21 06:01 Seg Neutrophils % 77.4 % (40.0-70.0) H 06/05/21 10:27 Seg Neuts % (Manual) 82.0 % (40.0-70.0) H 06/07/21 06:01 Band Neutrophils % 0 % 06/07/21 06:01 Lymphocytes % (Manual) 6.0 % (13.4-35.0) L 06/07/21 06:01 Reactive Lymphs % (Man) 0 % 06/07/21 06:01 Monocytes % (Manual) 12.0 % (0.0-7.3) H 06/07/21 06:01 Eosinophils % (Manual) 0 % (0.0-4.3) 06/07/21 06:01 Basophils % (Manual) 0 % (0.0-1.8) 06/07/21 06:01 Metamyelocytes % 0 % 06/07/21 06:01 Myelocytes % 0 % 06/07/21 06:01 Promyelocytes % 0 % 06/07/21 06:01 Blast Cells % 0 % 06/07/21 06:01 Nucleated RBC % Not Reportable 06/07/21 06:01 Seg Neutrophils # 9.0 K/mm3 (1.8-7.7) H 06/05/21 10:27 Seg Neutrophils # Man 10.3 K/mm3 (1.8-7.7) H 06/07/21 06:01 Band Neutrophils # 0.0 K/mm3 06/07/21 06:01 Lymphocytes # (Manual) 0.8 K/mm3 (1.2-5.4) L 06/07/21 06:01 Abs React Lymphs (Man) 0.0 K/mm3 06/07/21 06:01 Monocytes # (Manual) 1.5 K/mm3 (0.0-0.8) H 06/07/21 06:01 Eosinophils # (Manual) 0.0 K/mm3 (0.0-0.4) 06/07/21 06:01 Basophils # (Manual) 0.0 K/mm3 (0.0-0.1) 06/07/21 06:01 Metamyelocytes # 0.0 K/mm3 06/07/21 06:01 Myelocytes # 0.0 K/mm3 06/07/21 06:01 Promyelocytes # 0.0 K/mm3 06/07/21 06:01 Blast Cells # 0.0 K/mm3 06/07/21 06:01 WBC Morphology Not Reportable 06/07/21 06:01 Hypersegmented Neuts Not Reportable 06/07/21 06:01 Hyposegmented Neuts Not Reportable 06/07/21 06:01 Hypogranular Neuts Not Reportable 06/07/21 06:01 Smudge Cells Not Reportable 06/07/21 06:01 Toxic Granulation Not Reportable 06/07/21 06:01 Toxic Vacuolation Not Reportable 06/07/21 06:01 Dohle Bodies Not Reportable 06/07/21 06:01 Pelger-Huet Anomaly Not Reportable 06/07/21 06:01 Otis Rods Not Reportable 06/07/21 06:01 Platelet Estimate Consistent w auto 06/07/21 06:01 Clumped Platelets Not Reportable 06/07/21 06:01 Plt Clumps, EDTA Not Reportable 06/07/21 06:01 Large Platelets Not Reportable 06/07/21 06:01 Giant Platelets Not Reportable 06/07/21 06:01 Platelet Satelliting Not Reportable 06/07/21 06:01 Plt Morphology Comment Not Reportable 06/07/21 06:01 RBC Morphology Not Reportable 06/07/21 06:01 Dimorphic RBCs Not Reportable 06/07/21 06:01 Polychromasia Not Reportable 06/07/21 06:01 Hypochromasia Not Reportable 06/07/21 06:01 Poikilocytosis Not Reportable 06/07/21 06:01 Anisocytosis Few 06/07/21 06:01 Microcytosis Not Reportable 06/07/21 06:01 Macrocytosis Not Reportable 06/07/21 06:01 Spherocytes Not Reportable 06/07/21 06:01 Pappenheimer Bodies Not Reportable 06/07/21 06:01 Sickle Cells Not Reportable 06/07/21 06:01 Target Cells Not Reportable 06/07/21 06:01 Tear Drop Cells Not Reportable 06/07/21 06:01 Ovalocytes Few 06/07/21 06:01 Helmet Cells Not Reportable 06/07/21 06:01 [place] Bodies Not Reportable 06/07/21 06:01 [place] Rings Not Reportable 06/07/21 06:01 [place] Cells Not Reportable 06/07/21 06:01 Bite Cells Not Reportable 06/07/21 06:01 Crenated Cell Not Reportable 06/07/21 06:01 Elliptocytes Not Reportable 06/07/21 06:01 Acanthocytes (Spur) Not Reportable 06/07/21 06:01 Rouleaux Not Reportable 06/07/21 06:01 Hemoglobin C Crystals Not Reportable 06/07/21 06:01 Schistocytes Not Reportable 06/07/21 06:01 Malaria parasites Not Reportable 06/07/21 06:01 Cresencio Bodies Not Reportable 06/07/21 06:01 Hem Pathologist Commnt No 06/07/21 06:01 PT 28.8 Sec. (12.2-14.9) H 06/07/21 06:01 INR 2.47 (0.87-1.13) H 06/07/21 06:01 APTT 69.2 Sec. (24.2-36.6) H* 06/03/21 14:09 Sodium 139 mmol/L (137-145) 06/07/21 06:01 Potassium 4.5 mmol/L (3.6-5.0) 06/07/21 06:01 Chloride 108.7 mmol/L (98-107) H 06/07/21 06:01 Carbon Dioxide 23 mmol/L (22-30) 06/07/21 06:01 Anion Gap 12 mmol/L 06/07/21 06:01 BUN 33 mg/dL (9-20) H 06/07/21 06:01 Creatinine 1.1 mg/dL (0.8-1.3) 06/07/21 06:01 Estimated GFR > 60 ml/min 06/07/21 06:01 BUN/Creatinine Ratio 30 % 06/07/21 06:01 Glucose 125 mg/dL (75-100) H 06/07/21 06:01 POC Glucose 79 mg/dL (70-105) 06/07/21 15:46 Lactic Acid 3.90 mmol/L (0.7-2.0) H* 06/05/21 10:27 Calcium 8.2 mg/dL (8.4-10.2) L 06/07/21 06:01 Total Bilirubin 0.60 mg/dL (0.1-1.2) 06/07/21 06:01 Direct Bilirubin < 0.2 mg/dL (0-0.2) 06/03/21 14:09 Indirect Bilirubin 0.2 mg/dL 06/03/21 14:09 AST 173 units/L (5-40) H 06/07/21 06:01 ALT 105 units/L (7-56) H 06/07/21 06:01 Alkaline Phosphatase 61 units/L (35-129) 06/07/21 06:01 Ammonia 13.0 umol/L (25-60) L 06/03/21 14:09 Total Creatine Kinase 4762 units/L (55-170) H 06/07/21 06:01 Troponin T 0.133 ng/mL (0.00-0.029) H* D 06/07/21 06:01 C-Reactive Protein 12.40 mg/dL (0.00-1.30) H 06/06/21 08:32 Total Protein 5.7 g/dL (6.3-8.2) L 06/07/21 06:01 Albumin 2.1 g/dL (3.9-5) L 06/07/21 06:01 Albumin/Globulin Ratio 0.6 % 06/07/21 06:01 Triglycerides 92 mg/dL (2-149) 06/07/21 06:01 Cholesterol 93 mg/dL (50-199) 06/07/21 06:01 LDL Cholesterol Direct 49 mg/dL (50-130) L 06/07/21 06:01 HDL Cholesterol 26 mg/dL (40-59) L 06/07/21 06:01 Cholesterol/HDL Ratio 3.57 % 06/07/21 06:01 Procalcitonin 0.25 ng/mL (<0.15) 06/05/21 10:27 TSH 2.100 mlU/mL (0.270-4.200) 06/03/21 14:09 Urine Color Yellow (Yellow) 06/04/21 Unknown Urine Turbidity Clear (Clear) 06/04/21 Unknown Urine pH 5.0 (5.0-7.0) 06/04/21 Unknown Ur Specific [place] 1.025 (1.003-1.030) 06/04/21 Unknown Urine Protein <15 mg/dl mg/dL (Negative) 06/04/21 Unknown Urine Glucose (UA) Neg mg/dL (Negative) 06/04/21 Unknown Urine Ketones Neg mg/dL (Negative) 06/04/21 Unknown Urine Blood Mod (Negative) 06/04/21 Unknown Urine Nitrite Neg (Negative) 06/04/21 Unknown Urine Bilirubin Neg (Negative) 06/04/21 Unknown Urine Urobilinogen < 2.0 mg/dL (<2.0) 06/04/21 Unknown Ur Leukocyte Esterase Neg (Negative) 06/04/21 Unknown Urine WBC (Auto) < 1.0 /HPF (0.0-6.0) 06/04/21 Unknown Urine RBC (Auto) < 1.0 /HPF (0.0-6.0) 06/04/21 Unknown Coronavirus (PCR) Negative (Negative) 06/05/21 Unknown Hepatitis A IgM Ab Non-reactive (NonReactive) 06/04/21 12:34 Hep Bs Antigen Non-reactive (Negative) 06/04/21 12:34 Hep B Core IgM Ab Non-reactive (NonReactive) 06/04/21 12:34 Hepatitis C Antibody Non-reactive (NonReactive) 06/04/21 12:34 Microbiology: Microbiology 06/03/21 14:09 Peripheral/Venous Blood Culture - Preliminary NO GROWTH AFTER 4 DAYS 06/03/21 14:09 Peripheral/Venous Blood Culture - Preliminary NO GROWTH AFTER 4 DAYS Sal[place]/IV: Voiding Method Incontinent Active Medications - Current Medications Current Medications: Generic Name Dose Route Start Last Admin Trade Name Freq PRN Reason Stop Dose Admin Acetaminophen 650 mg 06/03/21 21:43 Acetaminophen 325 Mg Tab PO Q4H PRN Pain MILD(1-3)/Fever >100.5/THAYER Cetirizine HCl 10 mg 06/04/21 10:00 06/07/21 10:56 Cetirizine 10 Mg Tab PO 10 mg QDAY PATRICA Administration Dexamethasone 6 mg 06/07/21 10:00 06/07/21 10:56 Dexamethasone 4 Mg Tab PO 06/16/21 10:01 6 mg DAILY PATRICA Administration Diltiazem HCl 120 mg 06/07/21 12:00 Diltiazem Cd 120 Mg Cap PO BID PATRICA Diltiazem HCl 7.5 mg 06/07/21 11:41 Diltiazem 25 Mg/5 Ml Inj IV 06/07/21 11:42 ONCE ONE Divalproex Sodium 250 mg 06/03/21 22:00 06/06/21 23:[address] 250 Mg Tab PO 250 mg QHS PATRICA Administration Sodium Chloride 1,000 mls @ 125 mls/hr 06/06/21 10:45 06/07/21 06:55 Nacl 0.9% 1000 Ml IV 125 mls/hr DIRECT PATRICA Administration Isosorbide Mononitrate 30 mg 06/03/21 22:00 06/07/21 10:59 Isosorbide Mononitrate Er 30 Mg Tab PO 30 mg DAILY PATRICA Administration Memantine 10 mg 06/03/21 22:00 06/07/21 10:52 Memantine 10 Mg Tab PO 10 mg QDAY [facility] Administration Metoprolol Tartrate 5 mg 06/07/21 12:00 Metoprolol Tartrate 5 Mg/5 Ml Inj IV Q6HR [facility] Miscellaneous Medication 1 drop 06/03/21 22:00 06/04/21 00:41 Azelastine Hcl 0.05% OU Not Given BID [facility] Ondansetron HCl 4 mg 06/03/21 21:43 Ondansetron 4 Mg/2 Ml Inj IV Q8H PRN Nausea And Vomiting Quetiapine Fumarate 25 mg 06/03/21 22:00 06/06/21 22:59 Quetiapine 25 Mg Tab PO 25 mg QHS [facility] Administration Sodium Chloride 10 ml 06/03/21 22:00 06/07/21 11:04 Sodium Chloride 0.9% 10 Ml Flush Syringe IV Not Given BID PATRICA Sodium Chloride 10 ml 06/04/21 08:12 Sodium Chloride 0.9% 50 Ml Ivpb IV PRN PRN FLUSH Nutrition/Malnutrition Assess - Dietary Evaluation Nutrition/Malnutrition Findings: Nutrition Notes Start: 06/04/21 15:43 Freq: Status: Active Protocol: Document 06/07/21 11:21 TWILA (Rec: 06/07/21 11:33 TWILA [id number]) Nutrition Notes Initial or Follow up Reassessment Current Diagnosis Acute Kidney Injury,Coronary Artery Disease,Hypertension Other Pertinent Diagnosis Failure to thrive, Transaminitis, Elev BNP, Rabdomyolysis, Hypernatremia. Current Diet Pureed Diet (since L 06/06), Dietary Supplements (since L 06/04). Labs/Tests 06/07: Cl 108.7, BUN 33, Glu 125, Ca 8.2. Pertinent Medications 06/07: Nutritionally unremarkable. Height 5 ft 11 in Weight 74.389 kg [place] Body Weight (kg) 78.18 BMI 22.8 Weight change and time frame No body weight change reported in 3 days. Weight Status Appropriate Subjective/Other Information RD consult for routine F/U on Dietary intake assessment. Pt's PO intake of meals has been Fair (75%), according to ADL notes. Percent of energy/protein needs met: Prescribed Pureed Diet provides for energy/protein needs (1,804 Kcal/77 g) during LOS; additionally, Dietary Supplements will compensate for possible Fair or insufficient PO intake of meals with 700 Kcal and 40 g of protein. Burn Absent Trauma Absent GI Symptoms None Food Allergy No Skin Integrity/Comment Clear, warm, dry. Current % PO Good (75-100%) Minimum of two criteria No #1 Nutrition Diagnosis Inadequate enteral nutrition infusion Comments: Pt's PO intake of meals has been Fair (75%), according to ADL notes. Diagnosis Progress(for reassessment Improved documentation) Is patient on ventilator? No Is Patient Ambulatory and/or Out of Bed Yes [facility] [ 1905.826 [id number]] Kcal/Kg value to use for calculation 20 Approximate Energy Requirements Using 1488 kcal/Kg Calculation Used for Recommendations Kcal/kg Additional Notes Protein: 1-1.2 g/Kg; 74-89 g/ day. Fluids: 1 ml/Kcal, or as per MD. Nutrition Intervention Change Diet Order: Continue Pureed Diet. Add Supplement/Snack (indicate name/kcal 8 fl oz Ensure Enlive; BID. /protein ) Provides kCal: 700 Provides Protein (gm) 40 Goal #1 Compensate, through dietary supplementation, for possible Fair or insufficient PO intake of meals during LOS. Follow-Up By: 06/14/21 Additional Comments Continue monitoring food tolerance, %PO intake of meals , and BM.
[2021-06-07] MEDS: METOPROLOL TARTRATE 5 MG/5 ML INJ IV SCH (19:57)
--- NOTE | 2021-06-07 21:38 | Progress Note ---
Assessment and Plan # CHANDLER: creatinine 1.7->1.6->1.1 this AM, was 1.2 on 05/20. Likely pre-renal injury, mild rhabdomyolysis given history with concurrent hypernatremia, hypercalcemia. - Continue IVF as tolerated, echo reviewed and fairly stable- NS as tolerated - avoid nephrotoxins - renally dose medications - urinalysis reviewed, note blood, defer serologies/GN workup given history, age - defer imaging, ensure no retention - I/O - maintain MAP>70 - AM labs # Hypernatremia: improved, encourage po hydration as able # Hypercalcemia: improved with IVF, likely dehydration # Rhabdomyolysis: CK >3000->5900->4700, continue IVF, trend CK # Lactic Acidosis: ensure no infection, IVF as tolerated, note recent COVID-19 diagnosis # Failure to Thrive, Hypoalbuminemia, Malnutrition: management per primary, psych # HTN: BP reasonable # CAD: on ASA # Coagulopathy: note high INR Subjective Date of service: 06/07/21 Interval history: Remains lying in bed, sleeping, minimally interactive Objective - Exam Narrative Exam: General appearance: cachectic, chronically ill, frail EENT: ATNC Neck: no JVD Respiratory: Present: Clear to Ascultation Cardiology: regular Gastrointestinal: normoactive bowel sounds Integumentary: no rash, warm and dry Neurologic: no focal deficit, confused, disoriented Psychiatric: other (calm) - Vital Signs Vital signs: Vital Signs - 12hr 06/07/21 06/07/21 06/07/21 10:52 10:59 11:05 Pulse Rate 120 H 120 H 120 H Blood Pressure 121/68 121/68 121/68 06/07/21 19:57 Pulse Rate 116 H Blood Pressure 126/77 - Lab 06/07/21 06:01 06/07/21 06:01 Most recent lab results Calcium 8.2 mg/dL (8.4-10.2) L 06/07/21 06:01 Medications & Allergies - Medications Allergies/Adverse Reactions: Allergies No Known Allergies Allergy (Verified 06/06/21 13:50) Home Medications: Home Medications Medication Instructions Recorded Confirmed Last Taken Type Aspirin EC [Ecotrin] 325 mg PO QDAY 06/06/21 06/06/21 06/02/21 History Azelastine HCl [Azelastine HCl 1 drop OU BID 06/06/21 06/06/21 06/02/21 History 0.05%] Cetirizine HCl [ZyrTEC 10mg cap] 10 mg PO QDAY 06/06/21 06/06/21 06/02/21 History Cyanocobalamin [Vitamin B-12] 1,000 mcg PO DAILY 06/06/21 06/06/21 06/02/[address] [DepaKOTE DR] 250 mg PO QHS 06/06/21 06/06/21 06/02/21 History ISOSORBIDE MONOnitrate [Imdur ER] 30 mg PO DAILY 06/06/21 06/06/21 06/02/21 History Memantine [Namenda] 10 mg PO QDAY 06/06/21 06/06/21 06/02/21 History QUEtiapine [SEROquel] 25 mg PO QHS 06/06/21 06/06/21 06/02/21 History Warfarin [Coumadin] 5 mg PO QDAY 06/06/21 06/06/21 06/02/21 History dilTIAZem CD [Cardizem Cd] 120 mg PO DAILY 06/06/21 06/06/21 06/02/21 History Active Medications: Generic Name Dose Route Start Last Admin Trade Name Yelena PRN Reason Stop Dose Admin Acetaminophen 650 mg 06/03/21 21:43 Acetaminophen 325 Mg Tab PO Q4H PRN Pain MILD(1-3)/Fever >100.5/THAYER Cetirizine HCl 10 mg 06/04/21 10:00 06/07/21 10:56 Cetirizine 10 Mg Tab PO 10 mg QDAY PATRICA Administration Dexamethasone 6 mg 06/07/21 10:00 06/07/21 10:56 Dexamethasone 4 Mg Tab PO 06/16/21 10:01 6 mg DAILY PATRICA Administration Diltiazem HCl 120 mg 06/07/21 22:00 Diltiazem Cd 120 Mg Cap PO BID PATRICA Divalproex Sodium 250 mg 06/03/21 22:00 06/06/21 23:[address] 250 Mg Tab PO 250 mg QHS PATRICA Administration Sodium Chloride 1,000 mls @ 125 mls/hr 06/06/21 10:45 06/07/21 20:03 Nacl 0.9% 1000 Ml IV 125 mls/hr DIRECT PATRICA Administration Isosorbide Mononitrate 30 mg 06/03/21 22:00 06/07/21 10:59 Isosorbide Mononitrate Er 30 Mg Tab PO 30 mg DAILY PATRICA Administration Memantine 10 mg 06/03/21 22:00 06/07/21 10:52 Memantine 10 Mg Tab PO 10 mg QDAY PATRICA Administration Metoprolol Tartrate 5 mg 06/07/21 18:00 06/07/21 19:57 Metoprolol Tartrate 5 Mg/5 Ml Inj IV 5 mg Q6HR PATRICA Administration Miscellaneous Medication 1 drop 06/03/21 22:00 06/04/21 00:41 Azelastine Hcl 0.05% OU Not Given BID PATRICA Ondansetron HCl 4 mg 06/03/21 21:43 Ondansetron 4 Mg/2 Ml Inj IV Q8H PRN Nausea And Vomiting Quetiapine Fumarate 25 mg 06/03/21 22:00 06/06/21 22:59 Quetiapine 25 Mg Tab PO 25 mg QHS PATRICA Administration Sodium Chloride 10 ml 06/03/21 22:00 06/07/21 11:04 Sodium Chloride 0.9% 10 Ml Flush Syringe IV Not Given BID PATRICA Sodium Chloride 10 ml 06/04/21 08:12 Sodium Chloride 0.9% 50 Ml Ivpb IV PRN PRN FLUSH
[2021-06-07] MEDS: QUEtiapine 25 MG TAB PO SCH (23:43)
[2021-06-07] MEDS: DIVALPROEX DR 250 MG TAB PO SCH (23:44)
[2021-06-08] MEDS: METOPROLOL TARTRATE 5 MG/5 ML INJ IV SCH ×4 (01:08→17:00)
[2021-06-08 05:51] LABS: Basophils % (Auto) 0.1 % (0.0-1.8); Hematocrit 37.5 % (35.5-45.6); Hemoglobin 11.9 gm/dl (11.8-15.2); Lymphocytes # (Auto) 0.9 K/mm3 (1.2-5.4); Lymphocytes % (Auto) 7.2 % (13.4-35.0); Mean Corpuscular HGB Conc 32 % (32-34); Mean Corpuscular Volume 88 fl (84-94); Monocytes # (Auto) 1.6 K/mm3 (0.0-0.8); Monocytes % (Auto) 12.9 % (0.0-7.3); Platelet Count 282 K/mm3 (140-440); Red Blood Count 4.28 M/mm3 (3.65-5.03); Red Cell Distribution Width 14.6 % (13.2-15.2)
[2021-06-08 06:00] LABS: INR 1.47 (0.87-1.13)
[2021-06-08 06:06] LABS: Alanine Aminotransferase 94 units/L (7-56); BUN/Creatinine Ratio 28; Blood Urea Nitrogen 34 mg/dL (9-20); Calcium 8.1 mg/dL (8.4-10.2); Hemolysis Index 1
[2021-06-08] MEDS: SODIUM CHLORIDE 0.9% 1000 ML 1,000 ML IV SCH ×2 (06:53→16:52)
--- NOTE | 2021-06-08 08:52 | Progress Note ---
Assessment and Plan # CHANDLER: creatinine 1.7->1.6->1.2 this AM, was 1.2 on 05/20. Likely pre-renal injury, mild rhabdomyolysis given history with concurrent hypernatremia, hypercalcemia. - Continue IVF as tolerated, echo reviewed and fairly stable- currently on NS at 125cc/hr - avoid nephrotoxins - renally dose medications - urinalysis reviewed, note blood, defer serologies/GN workup given history, age - defer imaging, ensure no retention - I/O - maintain MAP>70 - AM labs - nephrology will follow peripherally at this time # Hypernatremia: improved, encourage po hydration as able # Hypercalcemia: improved with IVF, likely dehydration # Rhabdomyolysis: CK >3000->5900->4700->3400, continue IVF, trend CK # Lactic Acidosis: ensure no infection, IVF as tolerated, note recent COVID-19 diagnosis # Failure to Thrive, Hypoalbuminemia, Malnutrition: management per primary, psych # HTN: BP reasonable # CAD: on ASA # Coagulopathy: note high INR Subjective Date of service: 06/08/21 Interval history: Remains lying in bed, sleeping, minimally interactive Objective - Exam Narrative Exam: General appearance: cachectic, chronically ill, frail EENT: ATNC Neck: no JVD Respiratory: Present: Clear to Ascultation Cardiology: regular Gastrointestinal: normoactive bowel sounds Integumentary: no rash, warm and dry Neurologic: no focal deficit, confused, disoriented Psychiatric: other (calm) - Vital Signs Vital signs: Vital Signs - 12hr 06/07/21 06/07/21 06/08/21 21:53 23:44 01:02 Temperature 99.0 F Pulse Rate 118 H 118 H 117 H Respiratory 20 Rate Blood Pressure 130/77 130/77 120/76 O2 Sat by Pulse 77 L 91 Oximetry 06/08/21 06/08/21 06/08/21 01:08 05:34 05:44 Temperature 98.1 F Pulse Rate 117 H 119 H 119 H Respiratory 20 Rate Blood Pressure 120/76 131/70 131/70 O2 Sat by Pulse 99 Oximetry - Lab 06/08/21 04:31 06/08/21 04:31 Most recent lab results Calcium 8.1 mg/dL (8.4-10.2) L 06/08/21 04:31 Medications & Allergies - Medications Allergies/Adverse Reactions: Allergies No Known Allergies Allergy (Verified 06/06/21 13:50) Home Medications: Home Medications Medication Instructions Recorded Confirmed Last Taken Type Aspirin EC [Ecotrin] 325 mg PO QDAY 06/06/21 06/06/21 06/02/21 History Azelastine HCl [Azelastine HCl 1 drop OU BID 06/06/21 06/06/21 06/02/21 History 0.05%] Cetirizine HCl [ZyrTEC 10mg cap] 10 mg PO QDAY 06/06/21 06/06/21 06/02/21 History Cyanocobalamin [Vitamin B-12] 1,000 mcg PO DAILY 06/06/21 06/06/21 06/02/[address] [DepaKOTE DR] 250 mg PO QHS 06/06/21 06/06/21 06/02/21 History ISOSORBIDE MONOnitrate [Imdur ER] 30 mg PO DAILY 06/06/21 06/06/21 06/02/21 History Memantine [Namenda] 10 mg PO QDAY 06/06/21 06/06/21 06/02/21 History QUEtiapine [SEROquel] 25 mg PO QHS 06/06/21 06/06/21 06/02/21 History Warfarin [Coumadin] 5 mg PO QDAY 06/06/21 06/06/21 06/02/21 History dilTIAZem CD [Cardizem Cd] 120 mg PO DAILY 06/06/21 06/06/21 06/02/21 History Active Medications: Generic Name Dose Route Start Last Admin Trade Name Jsq PRN Reason Stop Dose Admin Acetaminophen 650 mg 06/03/21 21:43 Acetaminophen 325 Mg Tab PO Q4H PRN Pain MILD(1-3)/Fever >100.5/THAYER Cetirizine HCl 10 mg 06/04/21 10:00 06/07/21 10:56 Cetirizine 10 Mg Tab PO 10 mg QDAY PATRICA Administration Dexamethasone 6 mg 06/07/21 10:00 06/07/21 10:56 Dexamethasone 4 Mg Tab PO 06/16/21 10:01 6 mg DAILY PATRICA Administration Diltiazem HCl 120 mg 06/07/21 22:00 06/07/21 23:44 Diltiazem Cd 120 Mg Cap PO 120 mg BID PATRICA Administration Divalproex Sodium 250 mg 06/03/21 22:00 06/07/21 23:[address] 250 Mg Tab PO 250 mg QHS PATRICA Administration Sodium Chloride 1,000 mls @ 125 mls/hr 06/06/21 10:45 06/08/21 06:53 Nacl 0.9% 1000 Ml IV 125 mls/hr DIRECT PATRICA Administration Isosorbide Mononitrate 30 mg 06/03/21 22:00 06/07/21 10:59 Isosorbide Mononitrate Er 30 Mg Tab PO 30 mg DAILY PATRICA Administration Memantine 10 mg 06/03/21 22:00 06/07/21 10:52 Memantine 10 Mg Tab PO 10 mg QDAY PATRICA Administration Metoprolol Tartrate 5 mg 06/07/21 18:00 06/08/21 05:44 Metoprolol Tartrate 5 Mg/5 Ml Inj IV 5 mg Q6HR PATRICA Administration Miscellaneous Medication 1 drop 06/03/21 22:00 06/04/21 00:41 Azelastine Hcl 0.05% OU Not Given BID PATRICA Ondansetron HCl 4 mg 06/03/21 21:43 Ondansetron 4 Mg/2 Ml Inj IV Q8H PRN Nausea And Vomiting Quetiapine Fumarate 25 mg 06/03/21 22:00 06/07/21 23:43 Quetiapine 25 Mg Tab PO 25 mg QHS PATRICA Administration Sodium Chloride 10 ml 06/03/21 22:00 06/07/21 23:46 Sodium Chloride 0.9% 10 Ml Flush Syringe IV Not Given BID PATRICA Sodium Chloride 10 ml 06/04/21 08:12 06/07/21 23:45 Sodium Chloride 0.9% 50 Ml Ivpb IV 10 ml PRN PRN Administration FLUSH
[2021-06-08] MEDS: CETIRIZINE 10 MG TAB PO SCH (10:39)
[2021-06-08] MEDS: DEXAMETHASONE 4 MG TAB PO SCH (10:40)
[2021-06-08] MEDS: MEMANTINE 10 MG TAB PO SCH (10:40)
[2021-06-08] MEDS: dilTIAZem CD 120 MG CAP PO SCH ×2 (10:41→22:56)
--- NOTE | 2021-06-08 11:42 | Electrocardiograph Report ---
[facility] Test Date: 2021-06-07 Test Time: 12:25:52 Pat Name: ANTON HEAD Department: Room: A372 1 Gender: M Water Server: ZARIA : 1940 Requested By: DAYTON KRUSE Order Number: [id number] Reading MD: Luz Maria Melchor Measurements Intervals [place] Rate: 103 P: CT: QRS: -25 QRSD: 89 T: 98 QT: 331 QTc: 433 Interpretive Statements Atrial flutter Nonspecific T abnormalities, lateral leads Compared to ECG 06/05/2021 07:23:25 T-wave abnormality now present ST (T wave) deviation now present Electronically Signed On 06-08-2021 11:42:24 EST by Luz Maria Melchor
--- NOTE | 2021-06-08 16:07 | XRay Report ---
ABDOMEN 1 VIEW(S) INDICATION / CLINICAL INFORMATION: colon dilation. COMPARISON: None available. FINDINGS: TUBES / LINES: Feeding tube tip is in the distal esophagus, this seems to be advanced several centime ters. BOWEL GAS PATTERN: There is distention of the colon. A few mildly dilated loops of small bowel are no venessa as well. FREE AIR / EXTRALUMINAL GAS: None seen. ADDITIONAL FINDINGS: No significant additional findings. IMPRESSION: 1. Feeding tube tip in the distal esophagus, this needs to be advanced several centimeters. 2. Abnormal bowel gas pattern incompletely included on this exam. This could be due to adynamic ileus . Signer Name: Juvenal Munoz MD Signed: 06/08/2021 4:03 PM Workstation Name: [id number]
--- NOTE | 2021-06-08 16:55 | XRay Report ---
ABDOMEN 1 VIEW(S) INDICATION / CLINICAL INFORMATION: Dobhoff placement. COMPARISON: Earlier today. FINDINGS: TUBES / LINES: Feeding tube tip remains in the distal esophagus. BOWEL GAS PATTERN: Mild gaseous distention of the included bowel is again noted. FREE AIR / EXTRALUMINAL GAS: None seen. ADDITIONAL FINDINGS: No significant additional findings. IMPRESSION: 1. No change in the position of the feeding tube, tip projects at the distal esophagus. Signer Name: Juvenal Munoz MD Signed: 06/08/2021 4:51 PM Workstation Name: [id number]
[2021-06-08] MEDS: WARFARIN 1 MG TAB PO SCH (17:01)
--- NOTE | 2021-06-08 19:00 | XRay Report ---
ABDOMEN AP PORTABLE SUPINE [id number] INDICATION: Dobhoff placement COMPARISON: [id number] FINDINGS: Feeding tube is coiled well within the proximal stomach now. Signer Name: Brooks Ferguson MD Signed: 06/08/2021 6:56 PM Workstation Name: [id number]
--- NOTE | 2021-06-08 20:00 | Progress Note ---
Assessment and Plan Assessment and plan: 80-year-old male with history of dementia and hypertension who lives in an assisted facility was recently diagnosed with COVID-19 and presented to ED on 05/20/2020 with general weakness and discharged back to [facility]. Patient is now brought back to ED with worsening general weakness and lethargy. Not eating or drinking well. Patient is confused and unable to answer questions appropriately. Able to move all 4 extremities. No fever or chills. (1) acute to COVID-19 infection with anorexia and poor p.o. intake Current Visit: Yes Status: Acute Plan to address problem: Patient not eating or drinking well, severely dehydrated Likely Covid related etiology Ordered tube feeds on 06/08 (2) dehydration with hypernatremia Current Visit: Yes Status: Acute Plan to address problem: D5W to half-normal saline gently improving Has condom cath, urine output remains oliguric Nephrology consulted and following (3) CHANDLER (acute kidney injury) from dehydration due to poor p.o. intake Current Visit: Yes Status: Acute Plan to address problem: Continue IV fluids for hydration Vasomotor nephropathy Nephrology consulted/following Creatinine progressively improving, Will monitor closely Renal ultrasound shows echogenicity consistent with medical renal disease but no hydronephrosis. Bladder unremarkable. acute hypoxic respiratory failure Chest x-ray unremarkable and lungs clear Mildly dyspneic needing O2 Covid pneumonia as expected Aspiration is a possibility but lung sounds clear Started Decadron on 06/07 Not a candidate for remdesivir since CHANDLER and the onset of symptoms more than 2 weeks ago. leukocytosis with lactic acidosis Remains afebrile, procalcitonin normal Chest x-ray unremarkable, UA negative for UTI. Urine and blood cultures negative to date Unclear if etiology is sepsis or just severe dehydration, aspiration is a possibility. Lactic acid improving, will continue with fluids Leukocytosis improving without antibiotic intervention Will continue to monitor closely. (4) Hypertension Current Visit: Yes Status: Chronic Qualifiers: Hypertension type: primary hypertension Qualified Code(s): I10 - Essential (primary) hypertension Plan to address problem: Continue antihypertensives as tolerated but avoid hypotension since has CHANDLER (5) CAD, borderline troponin Current Visit: Yes Status: Chronic Qualifiers: Coronary Disease-Associated Artery/Lesion type: [place] artery [place] vs. transplanted heart: [place] heart Plan to address problem: Continue aspirin and isosorbide mononitrate Borderline troponins 0.02, 0.13, 0.09 could be from a A. fib/RVR or rhabdomyolysis. No chest pain, BP stable, looks comfortable chronic A. fib, currently RVR Off his home meds Digoxin 0.5 mg x 1 dose on 06/04 Resume home home oral Cardizem CD, increased to twice daily On chronic Coumadin therapy Started IV Lopressor for RVR on 06/07 (6) Coagulopathy Current Visit: Yes Status: Acute Plan to address problem: INR is high at 6.5, progressively improving Likely due to poor p.o. intake Held Coumadin, resumed on 06/08 but add very low-dose 1 mg daily since INR dropped to 1.47. Discussed with the pharmacy (7) Malnutrition Current Visit: Yes Status: Chronic Qualifiers: Protein-calorie malnutrition severity: moderate Plan to address problem: Dietary supplements requested (8) Transaminitis Current Visit: Yes Status: Acute Plan to address problem: AST and ALT are elevated--stable Could be related to acute COVID-19 infection Acute hepatitis profile negative (9) history of dementiaworsening mental status Current Visit: Yes Status: Chronic Plan to address problem: Likely due to dehydration, hypernatremia, COVID-19 and other infectious process. Currently calm and cooperative, remains very confused Mental health consult (10) Elevated (BNP) level, Current Visit: Yes Status: Acute Plan to address problem: EchocardiogramLV size and function normal, LVEF 55 to 60%, mild LVH, normal atria, RV size mildly increased and RV function could not be ascertained. The rest of the study unremarkable. No evidence of volume overload (11) Rhabdomyolysis Current Visit: Yes Status: Acute Qualifiers: Rhabdomyolysis type: non-traumatic Qualified Code(s): M62.82 - Rhabdomyolysis Plan to address problem: IV fluids for now and monitor his creatinine kinase (12) DVT prophylaxis Current Visit: Yes Status: Acute Plan to address problem: INR is still therapeutic (13) Advance care planning Current Visit: Yes Status: Acute Plan to address problem: Family counseled about disease education, care planning diagnosis and prognosis. Patient is full code. Family acknowledges understanding and agreement with care plan. Time spent in direct patient care: More than 30 minutes Discussed with the nursing staff and CM History Interval history: Patient remains very confused, more sleepy today. Not able to eat or drink and tube feeding ordered today. Urine output remains oliguric as per the record. Getting IV fluids. Low-grade fever x1 today. BP stable. A. fib/RVR intermittently IV Lopressor scheduled. Troponin borderline. Remains on nasal cannula/O2. Patient is unable to complain . He is verbal but incoherent. CK and LFTs stable. Creatinine improving, one-point today. Hospitalist Physical - Constitutional Vitals: Temp Pulse Resp BP Pulse Ox 100.5 F H 122 H 20 148/80 97 06/08/21 11:11 06/08/21 17:00 06/08/21 11:11 06/08/21 11:11 06/08/21 11:11 General appearance: Present: no acute distress, other (Awake, verbal, very confused with incoherent speech) - EENT Eyes: Present: PERRL, EOM intact ENT: other (Oral mucosa dry) - Neck Neck: Present: supple - Respiratory Respiratory effort: normal Respiratory: bilateral: diminished - Cardiovascular Rhythm: irregularly irregular - Extremities Extremities: No edema - Abdominal General gastrointestinal: soft, non-tender, non-distended, normal bowel sounds - Integumentary Integumentary: Absent: rash - Psychiatric Psychiatric: other (Confused but not restless or agitated.) - Neurologic Neurologic: other (Less alert today, remains confused, moves all 4 extremities. Verbal but incoherent.) HEART Score - HEART Score Troponin: Troponin T 0.098 ng/mL (0.00-0.029) H 06/08/21 04:50 Results - Labs CBC & Chem 7: 06/09/21 05:30 06/09/21 05:30 Labs: Laboratory Last Values WBC 12.6 K/mm3 (4.5-11.0) H 06/08/21 04:31 RBC 4.28 M/mm3 (3.65-5.03) 06/08/21 04:31 Hgb 11.9 gm/dl (11.8-15.2) 06/08/21 04:31 Hct 37.5 % (35.5-45.6) 06/08/21 04:31 MCV 88 fl (84-94) 06/08/21 04:31 MCH 28 pg (28-32) 06/08/21 04:31 MCHC 32 % (32-34) 06/08/21 04:31 RDW 14.6 % (13.2-15.2) 06/08/21 04:31 Plt Count 282 K/mm3 (140-440) 06/08/21 04:31 Lymph % (Auto) 7.2 % (13.4-35.0) L 06/08/21 04:31 [place] % (Auto) 12.9 % (0.0-7.3) H 06/08/21 04:31 Eos % (Auto) 0.0 % (0.0-4.3) 06/08/21 04:31 Baso % (Auto) 0.1 % (0.0-1.8) 06/08/21 04:31 Lymph # (Auto) 0.9 K/mm3 (1.2-5.4) L 06/08/21 04:31 [place] # (Auto) 1.6 K/mm3 (0.0-0.8) H 06/08/21 04:31 Eos # (Auto) 0.0 K/mm3 (0.0-0.4) 06/08/21 04:31 Baso # (Auto) 0.0 K/mm3 (0.0-0.1) 06/08/21 04:31 Add Manual Diff Complete 06/07/21 06:01 Total Counted 100 06/07/21 06:01 Seg Neutrophils % 79.8 % (40.0-70.0) H 06/08/21 04:31 Seg Neuts % (Manual) 82.0 % (40.0-70.0) H 06/07/21 06:01 Band Neutrophils % 0 % 06/07/21 06:01 Lymphocytes % (Manual) 6.0 % (13.4-35.0) L 06/07/21 06:01 Reactive Lymphs % (Man) 0 % 06/07/21 06:01 Monocytes % (Manual) 12.0 % (0.0-7.3) H 06/07/21 06:01 Eosinophils % (Manual) 0 % (0.0-4.3) 06/07/21 06:01 Basophils % (Manual) 0 % (0.0-1.8) 06/07/21 06:01 Metamyelocytes % 0 % 06/07/21 06:01 Myelocytes % 0 % 06/07/21 06:01 Promyelocytes % 0 % 06/07/21 06:01 Blast Cells % 0 % 06/07/21 06:01 Nucleated RBC % Not Reportable 06/07/21 06:01 Seg Neutrophils # 10.0 K/mm3 (1.8-7.7) H 06/08/21 04:31 Seg Neutrophils # Man 10.3 K/mm3 (1.8-7.7) H 06/07/21 06:01 Band Neutrophils # 0.0 K/mm3 06/07/21 06:01 Lymphocytes # (Manual) 0.8 K/mm3 (1.2-5.4) L 06/07/21 06:01 Abs React Lymphs (Man) 0.0 K/mm3 06/07/21 06:01 Monocytes # (Manual) 1.5 K/mm3 (0.0-0.8) H 06/07/21 06:01 Eosinophils # (Manual) 0.0 K/mm3 (0.0-0.4) 06/07/21 06:01 Basophils # (Manual) 0.0 K/mm3 (0.0-0.1) 06/07/21 06:01 Metamyelocytes # 0.0 K/mm3 06/07/21 06:01 Myelocytes # 0.0 K/mm3 06/07/21 06:01 Promyelocytes # 0.0 K/mm3 06/07/21 06:01 Blast Cells # 0.0 K/mm3 06/07/21 06:01 WBC Morphology Not Reportable 06/07/21 06:01 Hypersegmented Neuts Not Reportable 06/07/21 06:01 Hyposegmented Neuts Not Reportable 06/07/21 06:01 Hypogranular Neuts Not Reportable 06/07/21 06:01 Smudge Cells Not Reportable 06/07/21 06:01 Toxic Granulation Not Reportable 06/07/21 06:01 Toxic Vacuolation Not Reportable 06/07/21 06:01 Dohle Bodies Not Reportable 06/07/21 06:01 Pelger-Huet Anomaly Not Reportable 06/07/21 06:01 Otis Rods Not Reportable 06/07/21 06:01 Platelet Estimate Consistent w auto 06/07/21 06:01 Clumped Platelets Not Reportable 06/07/21 06:01 Plt Clumps, EDTA Not Reportable 06/07/21 06:01 Large Platelets Not Reportable 06/07/21 06:01 Giant Platelets Not Reportable 06/07/21 06:01 Platelet Satelliting Not Reportable 06/07/21 06:01 Plt Morphology Comment Not Reportable 06/07/21 06:01 RBC Morphology Not Reportable 06/07/21 06:01 Dimorphic RBCs Not Reportable 06/07/21 06:01 Polychromasia Not Reportable 06/07/21 06:01 Hypochromasia Not Reportable 06/07/21 06:01 Poikilocytosis Not Reportable 06/07/21 06:01 Anisocytosis Few 06/07/21 06:01 Microcytosis Not Reportable 06/07/21 06:01 Macrocytosis Not Reportable 06/07/21 06:01 Spherocytes Not Reportable 06/07/21 06:01 Pappenheimer Bodies Not Reportable 06/07/21 06:01 Sickle Cells Not Reportable 06/07/21 06:01 Target Cells Not Reportable 06/07/21 06:01 Tear Drop Cells Not Reportable 06/07/21 06:01 Ovalocytes Few 06/07/21 06:01 Helmet Cells Not Reportable 06/07/21 06:01 [place] Bodies Not Reportable 06/07/21 06:01 [place] Rings Not Reportable 06/07/21 06:01 [place] Cells Not Reportable 06/07/21 06:01 Bite Cells Not Reportable 06/07/21 06:01 Crenated Cell Not Reportable 06/07/21 06:01 Elliptocytes Not Reportable 06/07/21 06:01 Acanthocytes (Spur) Not Reportable 06/07/21 06:01 Rouleaux Not Reportable 06/07/21 06:01 Hemoglobin C Crystals Not Reportable 06/07/21 06:01 Schistocytes Not Reportable 06/07/21 06:01 Malaria parasites Not Reportable 06/07/21 06:01 Cresencio Bodies Not Reportable 06/07/21 06:01 Hem Pathologist Commnt No 06/07/21 06:01 PT 19.3 Sec. (12.2-14.9) H 06/08/21 04:31 INR 1.47 (0.87-1.13) H 06/08/21 04:31 APTT 69.2 Sec. (24.2-36.6) H* 06/03/21 14:09 Sodium 142 mmol/L (137-145) 06/08/21 04:31 Potassium 5.0 mmol/L (3.6-5.0) 06/08/21 04:31 Chloride 109.1 mmol/L (98-107) H 06/08/21 04:31 Carbon Dioxide 22 mmol/L (22-30) 06/08/21 04:31 Anion Gap 16 mmol/L 06/08/21 04:31 BUN 34 mg/dL (9-20) H 06/08/21 04:31 Creatinine 1.2 mg/dL (0.8-1.3) 06/08/21 04:31 Estimated GFR > 60 ml/min 06/08/21 04:31 BUN/Creatinine Ratio 28 % 06/08/21 04:31 Glucose 110 mg/dL (75-100) H 06/08/21 04:31 POC Glucose 100 mg/dL (70-105) 06/08/21 12:12 Lactic Acid 3.90 mmol/L (0.7-2.0) H* 06/05/21 10:27 Calcium 8.1 mg/dL (8.4-10.2) L 06/08/21 04:31 Total Bilirubin 0.60 mg/dL (0.1-1.2) 06/08/21 04:31 Direct Bilirubin < 0.2 mg/dL (0-0.2) 06/03/21 14:09 Indirect Bilirubin 0.2 mg/dL 06/03/21 14:09 AST 143 units/L (5-40) H 06/08/21 04:31 ALT 94 units/L (7-56) H 06/08/21 04:31 Alkaline Phosphatase 66 units/L (35-129) 06/08/21 04:31 Ammonia 13.0 umol/L (25-60) L 06/03/21 14:09 Total Creatine Kinase 3404 units/L (55-170) H 06/08/21 04:31 Troponin T 0.098 ng/mL (0.00-0.029) H 06/08/21 04:50 C-Reactive Protein 12.40 mg/dL (0.00-1.30) H 06/06/21 08:32 Total Protein 5.9 g/dL (6.3-8.2) L 06/08/21 04:31 Albumin 2.0 g/dL (3.9-5) L 06/08/21 04:31 Albumin/Globulin Ratio 0.5 % 06/08/21 04:31 Triglycerides 92 mg/dL (2-149) 06/07/21 06:01 Cholesterol 93 mg/dL (50-199) 06/07/21 06:01 LDL Cholesterol Direct 49 mg/dL (50-130) L 06/07/21 06:01 HDL Cholesterol 26 mg/dL (40-59) L 06/07/21 06:01 Cholesterol/HDL Ratio 3.57 % 06/07/21 06:01 Procalcitonin 0.25 ng/mL (<0.15) 06/05/21 10:27 TSH 2.100 mlU/mL (0.270-4.200) 06/03/21 14:09 Urine Color Yellow (Yellow) 06/04/21 Unknown Urine Turbidity Clear (Clear) 06/04/21 Unknown Urine pH 5.0 (5.0-7.0) 06/04/21 Unknown Ur Specific [place] 1.025 (1.003-1.030) 06/04/21 Unknown Urine Protein <15 mg/dl mg/dL (Negative) 06/04/21 Unknown Urine Glucose (UA) Neg mg/dL (Negative) 06/04/21 Unknown Urine Ketones Neg mg/dL (Negative) 06/04/21 Unknown Urine Blood Mod (Negative) 06/04/21 Unknown Urine Nitrite Neg (Negative) 06/04/21 Unknown Urine Bilirubin Neg (Negative) 06/04/21 Unknown Urine Urobilinogen < 2.0 mg/dL (<2.0) 06/04/21 Unknown Ur Leukocyte Esterase Neg (Negative) 06/04/21 Unknown Urine WBC (Auto) < 1.0 /HPF (0.0-6.0) 06/04/21 Unknown Urine RBC (Auto) < 1.0 /HPF (0.0-6.0) 06/04/21 Unknown Coronavirus (PCR) Negative (Negative) 06/05/21 Unknown Hepatitis A IgM Ab Non-reactive (NonReactive) 06/04/21 12:34 Hep Bs Antigen Non-reactive (Negative) 06/04/21 12:34 Hep B Core IgM Ab Non-reactive (NonReactive) 06/04/21 12:34 Hepatitis C Antibody Non-reactive (NonReactive) 06/04/21 12:34 Microbiology: Microbiology 06/03/21 14:09 Peripheral/Venous Blood Culture - Final NO GROWTH AFTER 5 DAYS 06/03/21 14:09 Peripheral/Venous Blood Culture - Final NO GROWTH AFTER 5 DAYS Salgado/IV: Voiding Method Condom Catheter Active Medications - Current Medications Current Medications: Generic Name Dose Route Start Last Admin Trade Name Freq PRN Reason Stop Dose Admin Acetaminophen 650 mg 06/03/21 21:43 Acetaminophen 325 Mg Tab PO Q4H PRN Pain MILD(1-3)/Fever >100.5/THAYER Cetirizine HCl 10 mg 06/04/21 10:00 06/08/21 10:39 Cetirizine 10 Mg Tab PO 10 mg QDAY PATRICA Administration Dexamethasone 6 mg 06/07/21 10:00 06/08/21 10:40 Dexamethasone 4 Mg Tab PO 06/16/21 10:01 6 mg DAILY PATRICA Administration Diltiazem HCl 120 mg 06/07/21 22:00 06/08/21 10:41 Diltiazem Cd 120 Mg Cap PO 120 mg BID PATRICA Administration Divalproex Sodium 250 mg 06/03/21 22:00 06/07/21 23:[address] 250 Mg Tab PO 250 mg QHS PATRICA Administration Sodium Chloride 1,000 mls @ 125 mls/hr 06/06/21 10:45 06/08/21 16:52 Nacl 0.9% 1000 Ml IV 125 mls/hr DIRECT PATRICA Administration Isosorbide Mononitrate 30 mg 06/03/21 22:00 06/08/21 10:39 Isosorbide Mononitrate Er 30 Mg Tab PO 30 mg DAILY PATRICA Administration Memantine 10 mg 06/03/21 22:00 06/08/21 10:40 Memantine 10 Mg Tab PO 10 mg QDAY PATRICA Administration Metoprolol Tartrate 5 mg 06/07/21 18:00 06/08/21 17:00 Metoprolol Tartrate 5 Mg/5 Ml Inj IV 5 mg Q6HR PATRICA Administration Miscellaneous Medication 1 drop 06/03/21 22:00 06/04/21 00:41 Azelastine Hcl 0.05% OU Not Given BID PATRICA Ondansetron HCl 4 mg 06/03/21 21:43 Ondansetron 4 Mg/2 Ml Inj IV Q8H PRN Nausea And Vomiting Quetiapine Fumarate 25 mg 06/03/21 22:00 06/07/21 23:43 Quetiapine 25 Mg Tab PO 25 mg QHS PATRICA Administration Sodium Chloride 10 ml 06/03/21 22:00 06/08/21 10:42 Sodium Chloride 0.9% 10 Ml Flush Syringe IV 10 ml BID PATRICA Administration Sodium Chloride 10 ml 06/04/21 08:12 06/07/21 23:45 Sodium Chloride 0.9% 50 Ml Ivpb IV 10 ml PRN PRN Administration FLUSH Warfarin Sodium 1 mg 06/08/21 17:00 06/08/21 17:01 Warfarin 1 Mg Tab PO 1 mg DAILY@1700 PATRICA Administration Nutrition/Malnutrition Assess - Dietary Evaluation Nutrition/Malnutrition Findings: Nutrition Notes Start: 06/04/21 15:43 Freq: Status: Active Protocol: Document 06/07/21 11:21 TWILA (Rec: 06/07/21 11:33 TWILA [id number]) Nutrition Notes Initial or Follow up Reassessment Current Diagnosis Acute Kidney Injury,Coronary Artery Disease,Hypertension Other Pertinent Diagnosis Failure to thrive, Transaminitis, Elev BNP, Rabdomyolysis, Hypernatremia. Current Diet Pureed Diet (since L 06/06), Dietary Supplements (since L 06/04). Labs/Tests 06/07: Cl 108.7, BUN 33, Glu 125, Ca 8.2. Pertinent Medications 06/07: Nutritionally unremarkable. Height 5 ft 11 in Weight 74.389 kg [place] Body Weight (kg) 78.18 BMI 22.8 Weight change and time frame No body weight change reported in 3 days. Weight Status Appropriate Subjective/Other Information RD consult for routine F/U on Dietary intake assessment. Pt's PO intake of meals has been Fair (75%), according to ADL notes. Percent of energy/protein needs met: Prescribed Pureed Diet provides for energy/protein needs (1,804 Kcal/77 g) during LOS; additionally, Dietary Supplements will compensate for possible Fair or insufficient PO intake of meals with 700 Kcal and 40 g of protein. Burn Absent Trauma Absent GI Symptoms None Food Allergy No Skin Integrity/Comment Clear, warm, dry. Current % PO Good (75-100%) Minimum of two criteria No #1 Nutrition Diagnosis Inadequate enteral nutrition infusion Comments: Pt's PO intake of meals has been Fair (75%), according to ADL notes. Diagnosis Progress(for reassessment Improved documentation) Is patient on ventilator? No Is Patient Ambulatory and/or Out of Bed Yes REE-([place]-St. Jeor-ambulatory/OOB) [ 1905.826 NUTR.[id number]] Kcal/Kg value to use for calculation 20 Approximate Energy Requirements Using 1488 kcal/Kg Calculation Used for Recommendations Kcal/kg Additional Notes Protein: 1-1.2 g/Kg; 74-89 g/ day. Fluids: 1 ml/Kcal, or as per MD. Nutrition Intervention Change Diet Order: Continue Pureed Diet. Add Supplement/Snack (indicate name/kcal 8 fl oz Ensure Enlive; BID. /protein ) Provides kCal: 700 Provides Protein (gm) 40 Goal #1 Compensate, through dietary supplementation, for possible Fair or insufficient PO intake of meals during LOS. Follow-Up By: 06/14/21 Additional Comments Continue monitoring food tolerance, %PO intake of meals , and BM.
[2021-06-08] MEDS: DIVALPROEX DR 250 MG TAB PO SCH (22:55)
[2021-06-08] MEDS: QUEtiapine 25 MG TAB PO SCH (22:55)
[2021-06-09] MEDS: METOPROLOL TARTRATE 5 MG/5 ML INJ IV SCH ×4 (00:13→17:38)
[2021-06-09] MEDS: SODIUM CHLORIDE 0.9% 1000 ML 1,000 ML IV SCH ×3 (00:17→19:16)
[2021-06-09 05:53] LABS: Hematocrit 36.8 % (35.5-45.6); Hemoglobin 11.7 gm/dl (11.8-15.2); Mean Corpuscular HGB Conc 32 % (32-34); Mean Corpuscular Volume 88 fl (84-94); Platelet Count 291 K/mm3 (140-440); Red Blood Count 4.17 M/mm3 (3.65-5.03); Red Cell Distribution Width 14.4 % (13.2-15.2)
[2021-06-09 06:03] LABS: INR 1.55 (0.87-1.13)
[2021-06-09 06:13] LABS: Alanine Aminotransferase 94 units/L (7-56); Albumin 2.2 g/dL (3.9-5); BUN/Creatinine Ratio 31; Blood Urea Nitrogen 34 mg/dL (9-20); Calcium 8.6 mg/dL (8.4-10.2); Hemolysis Index 4
[2021-06-09 07:00] LABS: Anisocytosis 1+; Basophils % (Manual) 0 % (0.0-1.8); Eosinophils % (Manual) 0 % (0.0-4.3); Platelet Estimate Consistent w Auto; Total Cells Counted 100
[2021-06-09] MEDS: CETIRIZINE 10 MG TAB PO SCH (10:46)
[2021-06-09] MEDS: MEMANTINE 10 MG TAB PO SCH (10:47)
[2021-06-09] MEDS: dilTIAZem CD 120 MG CAP PO SCH ×2 (10:47→21:25)
[2021-06-09] MEDS: dexAMETHasone 4 MG/ML VIAL IV SCH (10:51)
--- NOTE | 2021-06-09 12:23 | XRay Report ---
ABDOMEN 1 VIEW(S) INDICATION / CLINICAL INFORMATION: dobhoff placement. COMPARISON: One day prior FINDINGS: TUBES / LINES: Feeding tube remains in the proximal stomach with tip at the fundus similar to the lavell or. BOWEL GAS PATTERN: No significant abnormality. FREE AIR / EXTRALUMINAL GAS: None seen. ADDITIONAL FINDINGS: No significant additional findings. IMPRESSION: 1. No significant change. Signer Name: Juvenal Munoz MD Signed: 06/09/2021 12:18 PM Workstation Name: [id number]
--- NOTE | 2021-06-09 15:47 | Progress Note ---
Assessment and Plan # CHANDLER: creatinine 1.7->1.6->1.2->1.1 this AM, was 1.2 on 05/20. Likely pre- renal injury, mild rhabdomyolysis given history with concurrent hypernatremia, hypercalcemia. - Continue IVF as tolerated, echo reviewed and fairly stable- currently on NS at 125cc/hr - avoid nephrotoxins - renally dose medications - urinalysis reviewed, note blood, defer serologies/GN workup given history, age - defer imaging, ensure no retention - I/O - maintain MAP>70 - AM labs - nephrology will follow peripherally at this time # Hypernatremia: improved, encourage po hydration as able, slightly higher at 146 # Hypercalcemia: improved with IVF, likely dehydration # Rhabdomyolysis: CK >3000->5900->4700->3400->2355, continue IVF, trend CK # Lactic Acidosis: ensure no infection, IVF as tolerated, note recent COVID-19 diagnosis # Failure to Thrive, Hypoalbuminemia, Malnutrition: management per primary, psych # HTN: BP reasonable # CAD: on ASA # Coagulopathy: note high INR Subjective Date of service: 06/09/21 Interval history: Remains lying in bed, sleeping, minimally interactive Objective - Exam Narrative Exam: General appearance: cachectic, chronically ill, frail EENT: ATNC Neck: no JVD Respiratory: Present: Clear to Ascultation Cardiology: regular Gastrointestinal: normoactive bowel sounds Integumentary: no rash, warm and dry Neurologic: no focal deficit, confused, disoriented Psychiatric: other (calm) - Vital Signs Vital signs: Vital Signs - 12hr 06/09/21 06/09/21 06/09/21 04:42 06:36 08:00 Temperature 98.0 F Pulse Rate 116 H 116 H Respiratory 16 Rate Blood Pressure 125/73 125/73 O2 Sat by Pulse 98 97 Oximetry 06/09/21 06/09/21 06/09/21 10:46 10:47 11:12 Temperature 98.0 F Pulse Rate 100 H 100 H 117 H Respiratory 19 Rate Blood Pressure 170/93 O2 Sat by Pulse 98 Oximetry 06/09/21 13:55 Temperature Pulse Rate 100 H Respiratory Rate Blood Pressure O2 Sat by Pulse Oximetry - Lab 06/09/21 05:30 06/09/21 05:30 Most recent lab results Calcium 8.6 mg/dL (8.4-10.2) 06/09/21 05:30 Medications & Allergies - Medications Allergies/Adverse Reactions: Allergies No Known Allergies Allergy (Verified 06/06/21 13:50) Home Medications: Home Medications Medication Instructions Recorded Confirmed Last Taken Type Aspirin EC [Ecotrin] 325 mg PO QDAY 06/06/21 06/06/21 06/02/21 History Azelastine HCl [Azelastine HCl 1 drop OU BID 06/06/21 06/06/21 06/02/21 History 0.05%] Cetirizine HCl [ZyrTEC 10mg cap] 10 mg PO QDAY 06/06/21 06/06/21 06/02/21 History Cyanocobalamin [Vitamin B-12] 1,000 mcg PO DAILY 06/06/21 06/06/21 06/02/[address] [DepaKOTE DR] 250 mg PO QHS 06/06/21 06/06/21 06/02/21 History ISOSORBIDE MONOnitrate [Imdur ER] 30 mg PO DAILY 06/06/21 06/06/21 06/02/21 History Memantine [Namenda] 10 mg PO QDAY 06/06/21 06/06/21 06/02/21 History QUEtiapine [SEROquel] 25 mg PO QHS 06/06/21 06/06/21 06/02/21 History Warfarin [Coumadin] 5 mg PO QDAY 06/06/21 06/06/21 06/02/21 History dilTIAZem CD [Cardizem Cd] 120 mg PO DAILY 06/06/21 06/06/21 06/02/21 History Active Medications: Generic Name Dose Route Start Last Admin Trade Name Freq PRN Reason Stop Dose Admin Acetaminophen 650 mg 06/03/21 21:43 Acetaminophen 325 Mg Tab PO Q4H PRN Pain MILD(1-3)/Fever >100.5/THAYER Cetirizine HCl 10 mg 06/04/21 10:00 06/09/21 10:46 Cetirizine 10 Mg Tab PO 10 mg QDAY PATRICA Administration Dexamethasone 6 mg 06/09/21 11:00 06/09/21 10:51 Dexamethasone 4 Mg/Ml Vial IV 6 mg DAILY PATRICA Administration Diltiazem HCl 120 mg 06/07/21 22:00 06/09/21 10:47 Diltiazem Cd 120 Mg Cap PO 120 mg BID PATRICA Administration Divalproex Sodium 250 mg 06/03/21 22:00 06/08/21 22:[address] 250 Mg Tab PO Not Given QHS PATRICA Sodium Chloride 1,000 mls @ 125 mls/hr 06/06/21 10:45 06/09/21 10:45 Nacl 0.9% 1000 Ml IV 125 mls/hr DIRECT PATRICA Administration Isosorbide Mononitrate 30 mg 06/03/21 22:00 06/09/21 10:46 Isosorbide Mononitrate Er 30 Mg Tab PO 30 mg DAILY PATRICA Administration Memantine 10 mg 06/03/21 22:00 06/09/21 10:47 Memantine 10 Mg Tab PO 10 mg QDAY PATRICA Administration Metoprolol Tartrate 5 mg 06/07/21 18:00 06/09/21 13:55 Metoprolol Tartrate 5 Mg/5 Ml Inj IV 5 mg Q6HR PATRICA Administration Miscellaneous Medication 1 drop 06/03/21 22:00 06/04/21 00:41 Azelastine Hcl 0.05% OU Not Given BID [facility] Ondansetron HCl 4 mg 06/03/21 21:43 Ondansetron 4 Mg/2 Ml Inj IV Q8H PRN Nausea And Vomiting Quetiapine Fumarate 25 mg 06/03/21 22:00 06/08/21 22:55 Quetiapine 25 Mg Tab PO Not Given QHS [facility] Sodium Chloride 10 ml 06/03/21 22:00 06/09/21 10:52 Sodium Chloride 0.9% 10 Ml Flush Syringe IV Not Given BID PATRICA Sodium Chloride 10 ml 06/04/21 08:12 06/07/21 23:45 Sodium Chloride 0.9% 50 Ml Ivpb IV 10 ml PRN PRN Administration FLUSH Warfarin Sodium 1 mg 06/08/21 17:00 06/08/21 17:01 Warfarin 1 Mg Tab PO 1 mg DAILY@1700 PATRICA Administration
--- NOTE | 2021-06-09 16:38 | XRay Report ---
ABDOMEN AP PORTABLE SUPINE [id number] INDICATION: Feeding tube placement COMPARISON: [id number] FINDINGS: Tube is again seen to be coiled in the proximal stomach. Signer Name: Brooks Ferguson MD Signed: 06/09/2021 4:34 PM Workstation Name: [id number]
--- NOTE | 2021-06-09 17:09 | Progress Note ---
Assessment and Plan Assessment and plan: 80-year-old male with history of dementia and hypertension who lives in an assisted facility was recently diagnosed with COVID-19 and presented to ED on 05/20/2020 with general weakness and discharged back to [facility]. Patient is now brought back to ED with worsening general weakness and lethargy. Not eating or drinking well. Patient is confused and unable to answer questions appropriately. Able to move all 4 extremities. No fever or chills. (1) acute to COVID-19 infection with anorexia and poor p.o. intake Current Visit: Yes Status: Acute Plan to address problem: Patient not eating or drinking well, severely dehydrated Likely Covid related etiology Ordered tube feeds on 06/09 (2) dehydration with hypernatremia Current Visit: Yes Status: Acute Plan to address problem: D5W to half-normal saline gently improving Has condom cath, urine output remains oliguric Nephrology consulted and following (3) CHANDLER (acute kidney injury) from dehydration due to poor p.o. intake Current Visit: Yes Status: Acute Plan to address problem: Continue IV fluids for hydration, Vasomotor nephropathy Nephrology consulted/following Creatinine progressively improving, Will monitor closely Renal ultrasound shows echogenicity consistent with medical renal disease but no hydronephrosis. Bladder unremarkable. acute hypoxic respiratory failure Chest x-ray unremarkable and lungs clear Mildly dyspneic needing O2 Covid pneumonia as expected Aspiration is a possibility but lung sounds clear Started Decadron on 06/07 Not a candidate for remdesivir since CHANDLER and the onset of symptoms more than 2 weeks ago. leukocytosis with lactic acidosis Remains afebrile, procalcitonin normal Chest x-ray unremarkable, UA negative for UTI. Urine and blood cultures negative to date Unclear if etiology is sepsis or just severe dehydration, aspiration is a possi bility. Lactic acid improving, will continue with fluids Leukocytosis improving without antibiotic intervention Will continue to monitor closely. (4) Hypertension Current Visit: Yes Status: Chronic Qualifiers: Hypertension type: primary hypertension Qualified Code(s): I10 - Essential (primary) hypertension Plan to address problem: Continue antihypertensives as tolerated but avoid hypotension since has CHANDLER (5) CAD, borderline troponin Current Visit: Yes Status: Chronic Qualifiers: Coronary Disease-Associated Artery/Lesion type: [place] artery [place] vs. transplanted heart: [place] heart Plan to address problem: Continue aspirin and isosorbide mononitrate Borderline troponins 0.02, 0.13, 0.09 could be from a A. fib/RVR or rhabdomyolysis. No chest pain, BP stable, looks comfortable chronic A. fib, currently RVR Off his home meds Digoxin 0.5 mg x 1 dose on 06/04 Resume home home oral Cardizem CD, increased to twice daily On chronic Coumadin therapy Started IV Lopressor for RVR on 06/07 since n.p.o. (6) Coagulopathy Current Visit: Yes Status: Acute Plan to address problem: INR is high at 6.5, progressively improving Likely due to poor p.o. intake Held Coumadin, resumed on 06/08 but add very low-dose 1 mg daily since INR dropped to 1.47. Discussed with the pharmacy (7) Malnutrition Current Visit: Yes Status: Chronic Qualifiers: Protein-calorie malnutrition severity: moderate Plan to address problem: Dietary supplements requested (8) Transaminitis Current Visit: Yes Status: Acute Plan to address problem: AST and ALT are elevated--stable Could be related to acute COVID-19 infection Acute hepatitis profile negative (9) history of dementiaworsening mental status Current Visit: Yes Status: Chronic Plan to address problem: Likely due to dehydration, hypernatremia, COVID-19 and other infectious process. Currently calm and cooperative, remains very confused Mental health consult (10) Elevated (BNP) level, Current Visit: Yes Status: Acute Plan to address problem: EchocardiogramLV size and function normal, LVEF 55 to 60%, mild LVH, normal atria, RV size mildly increased and RV function could not be ascertained. The rest of the study unremarkable. No evidence of volume overload (11) Rhabdomyolysis Current Visit: Yes Status: Acute Qualifiers: Rhabdomyolysis type: non-traumatic Qualified Code(s): M62.82 - Rhabdomyolysis Plan to address problem: IV fluids for now and monitor his creatinine kinase (12) DVT prophylaxis Current Visit: Yes Status: Acute Plan to address problem: INR is still therapeutic (13) Advance care planning Current Visit: Yes Status: Acute Plan to address problem: Family counseled about disease education, care planning diagnosis and prognosis. Patient is full code. Family acknowledges understanding and agreement with care plan. Time spent in direct patient care: More than 30 minutes Discussed with the nursing staff History Interval history: Patient remains severely confused. Is been more alert today. Remains hypoxic needing O2. Afebrile and hemodynamically stable. Tube feeds started today. Poor p.o. intake. CHANDLER resolving. Hospitalist Physical - Constitutional Vitals: Temp Pulse Resp BP Pulse Ox 98.0 F 100 H 19 170/93 98 06/09/21 11:12 06/09/21 13:55 06/09/21 11:12 06/09/21 11:12 06/09/21 11:12 General appearance: Present: no acute distress, other (Awake, verbal, very c onfused ) - EENT Eyes: Present: PERRL, EOM intact ENT: clear oral mucosa - Neck Neck: Present: supple - Respiratory Respiratory effort: normal Respiratory: bilateral: diminished - Cardiovascular Rhythm: irregularly irregular - Extremities Extremities: No edema - Abdominal General gastrointestinal: soft, non-tender, non-distended, normal bowel sounds - Integumentary Integumentary: Absent: rash - Psychiatric Psychiatric: no agitated - Neurologic Neurologic: other (Awake, confused, moves all extremities) HEART Score - HEART Score Troponin: Troponin T 0.050 ng/mL (0.00-0.029) H D 06/09/21 05:30 Results - Labs CBC & Chem 7: 06/09/21 05:30 06/09/21 05:30 Labs: Laboratory Last Values WBC 13.2 K/mm3 (4.5-11.0) H 06/09/21 05:30 RBC 4.17 M/mm3 (3.65-5.03) 06/09/21 05:30 Hgb 11.7 gm/dl (11.8-15.2) L 06/09/21 05:30 Hct 36.8 % (35.5-45.6) 06/09/21 05:30 MCV 88 fl (84-94) 06/09/21 05:30 MCH 28 pg (28-32) 06/09/21 05:30 MCHC 32 % (32-34) 06/09/21 05:30 RDW 14.4 % (13.2-15.2) 06/09/21 05:30 Plt Count 291 K/mm3 (140-440) 06/09/21 05:30 Lymph % (Auto) 7.2 % (13.4-35.0) L 06/08/21 04:31 [place] % (Auto) 12.9 % (0.0-7.3) H 06/08/21 04:31 Eos % (Auto) 0.0 % (0.0-4.3) 06/08/21 04:31 Baso % (Auto) 0.1 % (0.0-1.8) 06/08/21 04:31 Lymph # (Auto) 0.9 K/mm3 (1.2-5.4) L 06/08/21 04:31 [place] # (Auto) 1.6 K/mm3 (0.0-0.8) H 06/08/21 04:31 Eos # (Auto) 0.0 K/mm3 (0.0-0.4) 06/08/21 04:31 Baso # (Auto) 0.0 K/mm3 (0.0-0.1) 06/08/21 04:31 Add Manual Diff Complete 06/09/21 05:30 Total Counted 100 06/09/21 05:30 Seg Neutrophils % 79.8 % (40.0-70.0) H 06/08/21 04:31 Seg Neuts % (Manual) 92.0 % (40.0-70.0) H 06/09/21 05:30 Band Neutrophils % 0 % 06/09/21 05:30 Lymphocytes % (Manual) 4.0 % (13.4-35.0) L 06/09/21 05:30 Reactive Lymphs % (Man) 0 % 06/09/21 05:30 Monocytes % (Manual) 4.0 % (0.0-7.3) 06/09/21 05:30 Eosinophils % (Manual) 0 % (0.0-4.3) 06/09/21 05:30 Basophils % (Manual) 0 % (0.0-1.8) 06/09/21 05:30 Metamyelocytes % 0 % 06/09/21 05:30 Myelocytes % 0 % 06/09/21 05:30 Promyelocytes % 0 % 06/09/21 05:30 Blast Cells % 0 % 06/09/21 05:30 Nucleated RBC % Not Reportable 06/09/21 05:30 Seg Neutrophils # 10.0 K/mm3 (1.8-7.7) H 06/08/21 04:31 Seg Neutrophils # Man 12.1 K/mm3 (1.8-7.7) H 06/09/21 05:30 Band Neutrophils # 0.0 K/mm3 06/09/21 05:30 Lymphocytes # (Manual) 0.5 K/mm3 (1.2-5.4) L 06/09/21 05:30 Abs React Lymphs (Man) 0.0 K/mm3 06/09/21 05:30 Monocytes # (Manual) 0.5 K/mm3 (0.0-0.8) 06/09/21 05:30 Eosinophils # (Manual) 0.0 K/mm3 (0.0-0.4) 06/09/21 05:30 Basophils # (Manual) 0.0 K/mm3 (0.0-0.1) 06/09/21 05:30 Metamyelocytes # 0.0 K/mm3 06/09/21 05:30 Myelocytes # 0.0 K/mm3 06/09/21 05:30 Promyelocytes # 0.0 K/mm3 06/09/21 05:30 Blast Cells # 0.0 K/mm3 06/09/21 05:30 WBC Morphology Not Reportable 06/09/21 05:30 Hypersegmented Neuts Not Reportable 06/09/21 05:30 Hyposegmented Neuts Not Reportable 06/09/21 05:30 Hypogranular Neuts Not Reportable 06/09/21 05:30 Smudge Cells Not Reportable 06/09/21 05:30 Toxic Granulation Not Reportable 06/09/21 05:30 Toxic Vacuolation Not Reportable 06/09/21 05:30 Dohle Bodies Not Reportable 06/09/21 05:30 Pelger-Huet Anomaly Not Reportable 06/09/21 05:30 Otis Rods Not Reportable 06/09/21 05:30 Platelet Estimate Consistent w auto 06/09/21 05:30 Clumped Platelets Not Reportable 06/09/21 05:30 Plt Clumps, EDTA Not Reportable 06/09/21 05:30 Large Platelets Not Reportable 06/09/21 05:30 Giant Platelets Not Reportable 06/09/21 05:30 Platelet Satelliting Not Reportable 06/09/21 05:30 Plt Morphology Comment Not Reportable 06/09/21 05:30 RBC Morphology Not Reportable 06/09/21 05:30 Dimorphic RBCs Not Reportable 06/09/21 05:30 Polychromasia Not Reportable 06/09/21 05:30 Hypochromasia Not Reportable 06/09/21 05:30 Poikilocytosis Not Reportable 06/09/21 05:30 Anisocytosis 1+ 06/09/21 05:30 Microcytosis Not Reportable 06/09/21 05:30 Macrocytosis Not Reportable 06/09/21 05:30 Spherocytes Not Reportable 06/09/21 05:30 Pappenheimer Bodies Not Reportable 06/09/21 05:30 Sickle Cells Not Reportable 06/09/21 05:30 Target Cells Not Reportable 06/09/21 05:30 Tear Drop Cells Not Reportable 06/09/21 05:30 Ovalocytes Not Reportable 06/09/21 05:30 Helmet Cells Not Reportable 06/09/21 05:30 [place] Bodies Not Reportable 06/09/21 05:30 [place] Rings Not Reportable 06/09/21 05:30 Teodora Cells Not Reportable 06/09/21 05:30 Bite Cells Not Reportable 06/09/21 05:30 Crenated Cell Not Reportable 06/09/21 05:30 Elliptocytes Not Reportable 06/09/21 05:30 Acanthocytes (Spur) Not Reportable 06/09/21 05:30 Rouleaux Not Reportable 06/09/21 05:30 Hemoglobin C Crystals Not Reportable 06/09/21 05:30 Schistocytes Not Reportable 06/09/21 05:30 Malaria parasites Not Reportable 06/09/21 05:30 Cresencio Bodies Not Reportable 06/09/21 05:30 Hem Pathologist Commnt No 06/09/21 05:30 PT 20.1 Sec. (12.2-14.9) H 06/09/21 05:30 INR 1.55 (0.87-1.13) H 06/09/21 05:30 APTT 69.2 Sec. (24.2-36.6) H* 06/03/21 14:09 Sodium 146 mmol/L (137-145) H 06/09/21 05:30 Potassium 4.8 mmol/L (3.6-5.0) 06/09/21 05:30 Chloride 112.5 mmol/L (98-107) H 06/09/21 05:30 Carbon Dioxide 23 mmol/L (22-30) 06/09/21 05:30 Anion Gap 15 mmol/L 06/09/21 05:30 BUN 34 mg/dL (9-20) H 06/09/21 05:30 Creatinine 1.1 mg/dL (0.8-1.3) 06/09/21 05:30 Estimated GFR > 60 ml/min 06/09/21 05:30 BUN/Creatinine Ratio 31 % 06/09/21 05:30 Glucose 138 mg/dL (75-100) H 06/09/21 05:30 POC Glucose 145 mg/dL (70-105) H 06/09/21 16:11 Lactic Acid 3.90 mmol/L (0.7-2.0) H* 06/05/21 10:27 Calcium 8.6 mg/dL (8.4-10.2) 06/09/21 05:30 Total Bilirubin 0.60 mg/dL (0.1-1.2) 06/09/21 05:30 Direct Bilirubin < 0.2 mg/dL (0-0.2) 06/03/21 14:09 Indirect Bilirubin 0.2 mg/dL 06/03/21 14:09 AST 115 units/L (5-40) H 06/09/21 05:30 ALT 94 units/L (7-56) H 06/09/21 05:30 Alkaline Phosphatase 59 units/L (35-129) 06/09/21 05:30 Ammonia 13.0 umol/L (25-60) L 06/03/21 14:09 Total Creatine Kinase 2355 units/L (55-170) H 06/09/21 05:30 Troponin T 0.050 ng/mL (0.00-0.029) H D 06/09/21 05:30 C-Reactive Protein 19.70 mg/dL (0.00-1.30) H 06/09/21 05:30 Total Protein 6.0 g/dL (6.3-8.2) L 06/09/21 05:30 Albumin 2.2 g/dL (3.9-5) L 06/09/21 05:30 Albumin/Globulin Ratio 0.6 % 06/09/21 05:30 Triglycerides 92 mg/dL (2-149) 06/07/21 06:01 Cholesterol 93 mg/dL (50-199) 06/07/21 06:01 LDL Cholesterol Direct 49 mg/dL (50-130) L 06/07/21 06:01 HDL Cholesterol 26 mg/dL (40-59) L 06/07/21 06:01 Cholesterol/HDL Ratio 3.57 % 06/07/21 06:01 Procalcitonin 0.25 ng/mL (<0.15) 06/05/21 10:27 TSH 2.100 mlU/mL (0.270-4.200) 06/03/21 14:09 Urine Color Yellow (Yellow) 06/04/21 Unknown Urine Turbidity Clear (Clear) 06/04/21 Unknown Urine pH 5.0 (5.0-7.0) 06/04/21 Unknown Ur Specific [place] 1.025 (1.003-1.030) 06/04/21 Unknown Urine Protein <15 mg/dl mg/dL (Negative) 06/04/21 Unknown Urine Glucose (UA) Neg mg/dL (Negative) 06/04/21 Unknown Urine Ketones Neg mg/dL (Negative) 06/04/21 Unknown Urine Blood Mod (Negative) 06/04/21 Unknown Urine Nitrite Neg (Negative) 06/04/21 Unknown Urine Bilirubin Neg (Negative) 06/04/21 Unknown Urine Urobilinogen < 2.0 mg/dL (<2.0) 06/04/21 Unknown Ur Leukocyte Esterase Neg (Negative) 06/04/21 Unknown Urine WBC (Auto) < 1.0 /HPF (0.0-6.0) 06/04/21 Unknown Urine RBC (Auto) < 1.0 /HPF (0.0-6.0) 06/04/21 Unknown Coronavirus (PCR) Negative (Negative) 06/05/21 Unknown Hepatitis A IgM Ab Non-reactive (NonReactive) 06/04/21 12:34 Hep Bs Antigen Non-reactive (Negative) 06/04/21 12:34 Hep B Core IgM Ab Non-reactive (NonReactive) 06/04/21 12:34 Hepatitis C Antibody Non-reactive (NonReactive) 06/04/21 12:34 Microbiology: Microbiology 06/03/21 14:09 Peripheral/Venous Blood Culture - Final NO GROWTH AFTER 5 DAYS 06/03/21 14:09 Peripheral/Venous Blood Culture - Final NO GROWTH AFTER 5 DAYS [place]/IV: Voiding Method Condom Catheter Active Medications - Current Medications Current Medications: Generic Name Dose Route Start Last Admin Trade Name Freq PRN Reason Stop Dose Admin Acetaminophen 650 mg 06/03/21 21:43 Acetaminophen 325 Mg Tab PO Q4H PRN Pain MILD(1-3)/Fever >100.5/THAYER Cetirizine HCl 10 mg 06/04/21 10:00 06/09/21 10:46 Cetirizine 10 Mg Tab PO 10 mg QDAY PATRICA Administration Dexamethasone 6 mg 06/09/21 11:00 06/09/21 10:51 Dexamethasone 4 Mg/Ml Vial IV 6 mg DAILY PATRICA Administration Diltiazem HCl 120 mg 06/07/21 22:00 06/09/21 10:47 Diltiazem Cd 120 Mg Cap PO 120 mg BID PATRICA Administration Divalproex Sodium 250 mg 06/03/21 22:00 06/08/21 22:[address] 250 Mg Tab PO Not Given QHS [facility] Sodium Chloride 1,000 mls @ 125 mls/hr 06/06/21 10:45 06/09/21 10:45 Nacl 0.9% 1000 Ml IV 125 mls/hr DIRECT PATRICA Administration Isosorbide Mononitrate 30 mg 06/03/21 22:00 06/09/21 10:46 Isosorbide Mononitrate Er 30 Mg Tab PO 30 mg DAILY PATRICA Administration Memantine 10 mg 06/03/21 22:00 06/09/21 10:47 Memantine 10 Mg Tab PO 10 mg QDAY PATRICA Administration Metoprolol Tartrate 5 mg 06/07/21 18:00 06/09/21 13:55 Metoprolol Tartrate 5 Mg/5 Ml Inj IV 5 mg Q6HR PATRICA Administration Miscellaneous Medication 1 drop 06/03/21 22:00 06/04/21 00:41 Azelastine Hcl 0.05% OU Not Given BID PATRICA Ondansetron HCl 4 mg 06/03/21 21:43 Ondansetron 4 Mg/2 Ml Inj IV Q8H PRN Nausea And Vomiting Quetiapine Fumarate 25 mg 06/03/21 22:00 06/08/21 22:55 Quetiapine 25 Mg Tab PO Not Given QHS PATRICA Sodium Chloride 10 ml 06/03/21 22:00 06/09/21 10:52 Sodium Chloride 0.9% 10 Ml Flush Syringe IV Not Given BID [facility] Sodium Chloride 10 ml 06/04/21 08:12 06/07/21 23:45 Sodium Chloride 0.9% 50 Ml Ivpb IV 10 ml PRN PRN Administration FLUSH Warfarin Sodium 1 mg 06/08/21 17:00 06/08/21 17:01 Warfarin 1 Mg Tab PO 1 mg DAILY@1700 [facility] Administration Nutrition/Malnutrition Assess - Dietary Evaluation Nutrition/Malnutrition Findings: Nutrition Notes Start: 06/04/21 15:43 Freq: Status: Active Protocol: Document 06/09/21 13:16 RS (Rec: 06/09/21 14:05 RS [id number]) Nutrition Notes Initial or Follow up Reassessment Current Diagnosis Acute Kidney Injury,Coronary Artery Disease,Hypertension Other Pertinent Diagnosis Failure to thrive, Transaminitis, Elev BNP, Rabdomyolysis, Hypernatremia. Current Diet Pureed Diets +ONS Labs/Tests 06/09: Na:146 Cl:112.5 BUN:34 Glu:138 Troponin T: 0.50 (>20% from last lab draw) Pertinent Medications Decadron: 6mg IV NaCl: 125mL/hr Height 5 ft 11 in Weight 74.389 kg [place] Body Weight (kg) 78.18 BMI 22.8 Weight change and time frame No recent wt change recorded Weight Status Appropriate Subjective/Other Information RD consult for TF. Pt has NGT placed and has PEG placement scheduled on 06/10. RN instructed RD to put in TF order in EMR bc purreed diet order still entered in system. Percent of energy/protein needs met: negliable Burn Absent Trauma Absent GI Symptoms None Food Allergy No Current % PO Negligible Minimum of two criteria No #1 Nutrition Diagnosis Inadequate oral intake Etiology dementia, FTT post COVID-19 dx As Evidenced by Signs and Symptoms negliable PO intake Is patient on ventilator? No Is Patient Ambulatory and/or Out of Bed No REE-([facility]-confined to bed) 1766.196 Calculation Used for Recommendations [facility] Additional Notes PRO: 74-89g/day (1-1.2g/kg BW/ day Fluids: 1mL/kcal Nutrition Intervention Change Diet Order: Start TF Nutrition Support: Jevity 1.2 at 60mL/hr. Free water flush of 200mL q4hr until hypernatremia resolves. Free water flush of 100mL q4hr once hypernatremia is resolved. Kcal 1,728 Protein (gm) 79 Fluid (mL) 1,162 Add Supplement/Snack (indicate name/kcal d/c /protein ) Goal #1 Meet at least 75% of kcal/PRO needs via TF Follow-Up By: 06/11/21 Additional Comments F/U for TF initiation/ tolerance, PEG placement
[2021-06-09] MEDS: WARFARIN 1 MG TAB PO SCH (17:39)
[2021-06-09] MEDS: QUEtiapine 25 MG TAB PO SCH (21:25)
[2021-06-09] MEDS: DIVALPROEX DR 250 MG TAB PO SCH (21:26)
[2021-06-10] MEDS: METOPROLOL TARTRATE 5 MG/5 ML INJ IV SCH ×4 (00:15→21:59)
[2021-06-10] MEDS: SODIUM CHLORIDE 0.9% 1000 ML 1,000 ML IV SCH (04:53)
--- NOTE | 2021-06-10 10:11 | Progress Note ---
Subjective Date of service: 06/10/21 Principal diagnosis: hypernatremia Interval history: # CHANDLER: creatinine 1.7->1.6->1.2->1.1 this AM, was 1.2 on 05/20. Likely pre- renal injury, mild rhabdomyolysis given history with concurrent hypernatremia, hypercalcemia. - Continue IVF as tolerated, echo reviewed and fairly stable- currently on NS at 125cc/hr - avoid nephrotoxins - renally dose medications - urinalysis reviewed, note blood, defer serologies/GN workup given history, age - defer imaging, ensure no retention - I/O - maintain MAP>70 - AM labs - nephrology will follow peripherally at this time # Hypernatremia: improved, encourage po hydration as able, slightly higher at 146 # Hypercalcemia: improved with IVF, likely dehydration # Rhabdomyolysis: CK >3000->5900->4700->3400->2355, continue IVF, trend CK # Lactic Acidosis: ensure no infection, IVF as tolerated, note recent COVID-19 diagnosis # Failure to Thrive, Hypoalbuminemia, Malnutrition: management per primary, psych # HTN: BP reasonable # CAD: on ASA # Coagulopathy: note high INR Subjective Interval history: Remains lying in bed, sleeping, minimally interactive Objective - Exam Narrative Exam: General appearance: cachectic, chronically ill, frail EENT: ATNC Neck: no JVD Respiratory: Present: Clear to Ascultation Cardiology: regular Gastrointestinal: normoactive bowel sounds Integumentary: no rash, warm and dry Neurologic: no focal deficit, confused, disoriented Psychiatric: other (calm) Objective - Lab 06/09/21 05:30 06/09/21 05:30 Most recent lab results Calcium 8.6 mg/dL (8.4-10.2) 06/09/21 05:30 Medications & Allergies - Medications Allergies/Adverse Reactions: Allergies No Known Allergies Allergy (Verified 06/06/21 13:50) Home Medications: Home Medications Medication Instructions Recorded Confirmed Last Taken Type Aspirin EC [Ecotrin] 325 mg PO QDAY 06/06/21 06/06/21 06/02/21 History Azelastine HCl [Azelastine HCl 1 drop OU BID 06/06/21 06/06/21 06/02/21 History 0.05%] Cetirizine HCl [ZyrTEC 10mg cap] 10 mg PO QDAY 06/06/21 06/06/21 06/02/21 History Cyanocobalamin [Vitamin B-12] 1,000 mcg PO DAILY 06/06/21 06/06/21 06/02/[address] [DepaKOTE DR] 250 mg PO QHS 06/06/21 06/06/21 06/02/21 History ISOSORBIDE MONOnitrate [Imdur ER] 30 mg PO DAILY 06/06/21 06/06/21 06/02/21 History Memantine [Namenda] 10 mg PO QDAY 06/06/21 06/06/21 06/02/21 History QUEtiapine [SEROquel] 25 mg PO QHS 06/06/21 06/06/21 06/02/21 History Warfarin [Coumadin] 5 mg PO QDAY 06/06/21 06/06/21 06/02/21 History dilTIAZem CD [Cardizem Cd] 120 mg PO DAILY 06/06/21 06/06/21 06/02/21 History Active Medications: Generic Name Dose Route Start Last Admin Trade Name Freq PRN Reason Stop Dose Admin Acetaminophen 650 mg 06/03/21 21:43 06/09/21 21:34 Acetaminophen 325 Mg Tab PO 650 mg Q4H PRN Administration Pain MILD(1-3)/Fever >100.5/THAYER Cetirizine HCl 10 mg 06/04/21 10:00 06/09/21 10:46 Cetirizine 10 Mg Tab PO 10 mg QDAY PATRICA Administration Dexamethasone 6 mg 06/09/21 11:00 06/09/21 10:51 Dexamethasone 4 Mg/Ml Vial IV 6 mg DAILY PATRICA Administration Diltiazem HCl 120 mg 06/07/21 22:00 06/09/21 21:25 Diltiazem Cd 120 Mg Cap PO 120 mg BID PATRICA Administration Divalproex Sodium 250 mg 06/03/21 22:00 06/09/21 21:[address] 250 Mg Tab PO 250 mg QHS PATRICA Administration Sodium Chloride 1,000 mls @ 125 mls/hr 06/06/21 10:45 06/10/21 04:53 Nacl 0.9% 1000 Ml IV 125 mls/hr DIRECT PATRICA Administration Isosorbide Mononitrate 30 mg 06/03/21 22:00 06/09/21 10:46 Isosorbide Mononitrate Er 30 Mg Tab PO 30 mg DAILY PATRICA Administration Memantine 10 mg 06/03/21 22:00 06/09/21 10:47 Memantine 10 Mg Tab PO 10 mg QDAY PATRICA Administration Metoprolol Tartrate 5 mg 06/07/21 18:00 06/10/21 05:05 Metoprolol Tartrate 5 Mg/5 Ml Inj IV 5 mg Q6HR PATRICA Administration Miscellaneous Medication 1 drop 06/03/21 22:00 06/04/21 00:41 Azelastine Hcl 0.05% OU Not Given BID [facility] Ondansetron HCl 4 mg 06/03/21 21:43 Ondansetron 4 Mg/2 Ml Inj IV Q8H PRN Nausea And Vomiting Quetiapine Fumarate 25 mg 06/03/21 22:00 06/09/21 21:25 Quetiapine 25 Mg Tab PO 25 mg QHS PATRICA Administration Sodium Chloride 10 ml 06/03/21 22:00 06/09/21 21:26 Sodium Chloride 0.9% 10 Ml Flush Syringe IV 10 ml BID PATRICA Administration Sodium Chloride 10 ml 06/04/21 08:12 06/07/21 23:45 Sodium Chloride 0.9% 50 Ml Ivpb IV 10 ml PRN PRN Administration FLUSH Warfarin Sodium 1 mg 06/08/21 17:00 06/09/21 17:39 Warfarin 1 Mg Tab PO 1 mg DAILY@1700 PATRICA Administration
--- NOTE | 2021-06-10 10:15 | Progress Note ---
Subjective Date of service: 06/10/21 Principal diagnosis: hypernatremia Interval history: # CHANDLER: creatinine better Likely pre-renal injury, mild rhabdomyolysis given history with concurrent hypernatremia, hypercalcemia. - Continue IVF as tolerated, echo reviewed and fairly stable- currently on NS at 125cc/hr - avoid nephrotoxins - renally dose medications - urinalysis reviewed, note blood, defer serologies/GN workup given history, age - defer imaging, ensure no retention - I/O - maintain MAP>70 - AM labs - nephrology will follow peripherally at this time # Hypernatremia: improved, encourage po hydration as able, slightly higher at 146, added free h2o and 1/2ns # Hypercalcemia: improved with IVF, likely dehydration # Rhabdomyolysis: ontinue IVF, trend CK # Lactic Acidosis: ensure no infection, IVF as tolerated, note recent COVID-19 diagnosis # Failure to Thrive, Hypoalbuminemia, Malnutrition: management per primary, psych # HTN: BP reasonable # CAD: on ASA # Coagulopathy: note high INR will see prn Subjective Interval history: Remains lying in bed, sleeping, minimally interactive Objective - Exam Narrative Exam: General appearance: cachectic, chronically ill, frail EENT: ATNC Neck: no JVD Respiratory: Present: Clear to Ascultation Cardiology: regular Gastrointestinal: normoactive bowel sounds Integumentary: no rash, warm and dry Neurologic: no focal deficit, confused, disoriented Psychiatric: other (calm) Objective - Lab 06/09/21 05:30 06/09/21 05:30 Most recent lab results Calcium 8.6 mg/dL (8.4-10.2) 06/09/21 05:30 Medications & Allergies - Medications Allergies/Adverse Reactions: Allergies No Known Allergies Allergy (Verified 06/06/21 13:50) Home Medications: Home Medications Medication Instructions Recorded Confirmed Last Taken Type Aspirin EC [Ecotrin] 325 mg PO QDAY 06/06/21 06/06/21 06/02/21 History Azelastine HCl [Azelastine HCl 1 drop OU BID 06/06/21 06/06/21 06/02/21 History 0.05%] Cetirizine HCl [ZyrTEC 10mg cap] 10 mg PO QDAY 06/06/21 06/06/21 06/02/21 History Cyanocobalamin [Vitamin B-12] 1,000 mcg PO DAILY 06/06/21 06/06/21 06/02/[address] [DepaKOTE DR] 250 mg PO QHS 06/06/21 06/06/21 06/02/21 History ISOSORBIDE MONOnitrate [Imdur ER] 30 mg PO DAILY 06/06/21 06/06/21 06/02/21 History Memantine [Namenda] 10 mg PO QDAY 06/06/21 06/06/21 06/02/21 History QUEtiapine [SEROquel] 25 mg PO QHS 06/06/21 06/06/21 06/02/21 History Warfarin [Coumadin] 5 mg PO QDAY 06/06/21 06/06/21 06/02/21 History dilTIAZem CD [Cardizem Cd] 120 mg PO DAILY 06/06/21 06/06/21 06/02/21 History Active Medications: Generic Name Dose Route Start Last Admin Trade Name Freq PRN Reason Stop Dose Admin Acetaminophen 650 mg 06/03/21 21:43 06/09/21 21:34 Acetaminophen 325 Mg Tab PO 650 mg Q4H PRN Administration Pain MILD(1-3)/Fever >100.5/THAYER Cetirizine HCl 10 mg 06/04/21 10:00 06/09/21 10:46 Cetirizine 10 Mg Tab PO 10 mg QDAY PATRICA Administration Dexamethasone 6 mg 06/09/21 11:00 06/09/21 10:51 Dexamethasone 4 Mg/Ml Vial IV 6 mg DAILY PATRICA Administration Diltiazem HCl 120 mg 06/07/21 22:00 06/09/21 21:25 Diltiazem Cd 120 Mg Cap PO 120 mg BID PATRICA Administration Divalproex Sodium 250 mg 06/03/21 22:00 06/09/21 21:[address] 250 Mg Tab PO 250 mg QHS PATRICA Administration Sodium Chloride 1,000 mls @ 75 mls/hr 06/10/21 11:00 Nacl 0.45% 1000 Ml IV DIRECT PATRICA Isosorbide Mononitrate 30 mg 06/03/21 22:00 06/09/21 10:46 Isosorbide Mononitrate Er 30 Mg Tab PO 30 mg DAILY PATRICA Administration Memantine 10 mg 06/03/21 22:00 06/09/21 10:47 Memantine 10 Mg Tab PO 10 mg QDAY PATRICA Administration Metoprolol Tartrate 5 mg 06/07/21 18:00 06/10/21 05:05 Metoprolol Tartrate 5 Mg/5 Ml Inj IV 5 mg Q6HR PATRICA Administration Miscellaneous Medication 1 drop 06/03/21 22:00 06/04/21 00:41 Azelastine Hcl 0.05% OU Not Given BID PATRICA Ondansetron HCl 4 mg 06/03/21 21:43 Ondansetron 4 Mg/2 Ml Inj IV Q8H PRN Nausea And Vomiting Quetiapine Fumarate 25 mg 06/03/21 22:00 06/09/21 21:25 Quetiapine 25 Mg Tab PO 25 mg QHS PATRICA Administration Sodium Chloride 10 ml 06/03/21 22:00 06/09/21 21:26 Sodium Chloride 0.9% 10 Ml Flush Syringe IV 10 ml BID PATRICA Administration Sodium Chloride 10 ml 06/04/21 08:12 06/07/21 23:45 Sodium Chloride 0.9% 50 Ml Ivpb IV 10 ml PRN PRN Administration FLUSH Warfarin Sodium 1 mg 06/08/21 17:00 06/09/21 17:39 Warfarin 1 Mg Tab PO 1 mg DAILY@1700 PATRICA Administration
[2021-06-10 10:26] LABS: Alanine Aminotransferase 90 units/L (7-56); BUN/Creatinine Ratio 33; Blood Urea Nitrogen 33 mg/dL (9-20); Calcium 8.2 mg/dL (8.4-10.2); Hemolysis Index 4
[2021-06-10 10:37] LABS: INR 1.91 (0.87-1.13)
[2021-06-10 10:41] LABS: Basophils % (Auto) 0.1 % (0.0-1.8); Hematocrit 33.3 % (35.5-45.6); Hemoglobin 10.6 gm/dl (11.8-15.2); Lymphocytes # (Auto) 0.7 K/mm3 (1.2-5.4); Mean Corpuscular HGB Conc 32 % (32-34); Mean Corpuscular Volume 89 fl (84-94); Monocytes # (Auto) 1.5 K/mm3 (0.0-0.8); Monocytes % (Auto) 10.3 % (0.0-7.3); Platelet Count 300 K/mm3 (140-440); Red Blood Count 3.74 M/mm3 (3.65-5.03); Red Cell Distribution Width 14.8 % (13.2-15.2)
[2021-06-10] MEDS: SODIUM CHLORIDE 0.45% 1000 ML 1,000 ML IV SCH ×2 (11:20→23:59)
[2021-06-10] MEDS: MEMANTINE 10 MG TAB PO SCH (11:21)
[2021-06-10] MEDS: dexAMETHasone 4 MG/ML VIAL IV SCH (11:22)
[2021-06-10] MEDS: CETIRIZINE 10 MG TAB PO SCH (11:23)
[2021-06-10] MEDS: dilTIAZem CD 120 MG CAP PO SCH ×2 (11:23→22:04)
[2021-06-10] MEDS: WARFARIN 1 MG TAB PO SCH (19:48)
[2021-06-10] MEDS: DIVALPROEX DR 250 MG TAB PO SCH (22:04)
[2021-06-10] MEDS: QUEtiapine 25 MG TAB PO SCH (22:04)
[2021-06-11] MEDS: METOPROLOL TARTRATE 5 MG/5 ML INJ IV SCH ×3 (00:21→12:00)
[2021-06-11 06:24] LABS: Basophils % (Auto) 0.1 % (0.0-1.8); Hematocrit 34.6 % (35.5-45.6); Hemoglobin 10.6 gm/dl (11.8-15.2); Lymphocytes # (Auto) 0.8 K/mm3 (1.2-5.4); Lymphocytes % (Auto) 5.9 % (13.4-35.0); Mean Corpuscular HGB Conc 31 % (32-34); Mean Corpuscular Volume 88 fl (84-94); Monocytes # (Auto) 1.3 K/mm3 (0.0-0.8); Monocytes % (Auto) 9.7 % (0.0-7.3); Platelet Count 285 K/mm3 (140-440); Red Blood Count 3.94 M/mm3 (3.65-5.03); Red Cell Distribution Width 14.7 % (13.2-15.2)
[2021-06-11 06:42] LABS: Alanine Aminotransferase 90 units/L (7-56); Albumin 1.8 g/dL (3.9-5); BUN/Creatinine Ratio 30; Blood Urea Nitrogen 30 mg/dL (9-20); Calcium 8.4 mg/dL (8.4-10.2); Hemolysis Index 4
--- NOTE | 2021-06-11 08:49 | Progress Note ---
Subjective Date of service: 06/11/21 Principal diagnosis: hypernatremia Interval history: # CHANDLER: creatinine better Likely pre-renal injury, mild rhabdomyolysis given history with concurrent hypernatremia, hypercalcemia. - Continue IVF as tolerated, echo reviewed and fairly stable- currently on NS at 125cc/hr - avoid nephrotoxins - renally dose medications - urinalysis reviewed, note blood, defer serologies/GN workup given history, age - defer imaging, ensure no retention - I/O - maintain MAP>70 - AM labs - nephrology will follow peripherally at this time # Hypernatremia: improved, encourage po hydration as able # Hypercalcemia: improved with IVF, likely dehydration # Rhabdomyolysis: ontinue IVF, trend CK # Lactic Acidosis: ensure no infection, IVF as tolerated, note recent COVID-19 diagnosis # Failure to Thrive, Hypoalbuminemia, Malnutrition: management per primary, psych # HTN: BP reasonable # CAD: on ASA # Coagulopathy: note high INR will see prn Subjective Interval history: Remains lying in bed, sleeping, minimally interactive Objective - Exam Narrative Exam: General appearance: cachectic, chronically ill, frail full exam deferred for preservation of ppe primary team exam noted Objective - Vital Signs Vital signs: Vital Signs - 12hr 06/10/21 06/10/21 06/10/21 21:06 21:50 22:04 Temperature 98.4 F Pulse Rate 117 H Respiratory 20 Rate Blood Pressure 140/84 146/86 O2 Sat by Pulse 98 97 Oximetry 06/11/21 06/11/21 06/11/21 00:21 05:09 06:03 Temperature 97.8 F Pulse Rate 102 H 98 H 83 Respiratory 20 Rate Blood Pressure 121/72 O2 Sat by Pulse 97 Oximetry - Lab 06/11/21 05:54 06/11/21 05:54 Most recent lab results Calcium 8.4 mg/dL (8.4-10.2) 06/11/21 05:54 Medications & Allergies - Medications Allergies/Adverse Reactions: Allergies No Known Allergies Allergy (Verified 06/06/21 13:50) Home Medications: Home Medications Medication Instructions Recorded Confirmed Last Taken Type Aspirin EC [Ecotrin] 325 mg PO QDAY 06/06/21 06/06/21 06/02/21 History Azelastine HCl [Azelastine HCl 1 drop OU BID 06/06/21 06/06/2122 History 0.05%] Cetirizine HCl [ZyrTEC 10mg cap] 10 mg PO QDAY 06/06/21 06/06/21 06/02/21 History Cyanocobalamin [Vitamin B-12] 1,000 mcg PO DAILY 06/06/21 06/06/21 06/02/[address] [DepaKOTE DR] 250 mg PO QHS 06/06/21 06/06/21 06/02/21 History ISOSORBIDE MONOnitrate [Imdur ER] 30 mg PO DAILY 06/06/21 06/06/21 06/02/21 History Memantine [Namenda] 10 mg PO QDAY 06/06/21 06/06/21 06/02/21 History QUEtiapine [SEROquel] 25 mg PO QHS 06/06/21 06/06/21 06/02/21 History Warfarin [Coumadin] 5 mg PO QDAY 06/06/21 06/06/21 06/02/21 History dilTIAZem CD [Cardizem Cd] 120 mg PO DAILY 06/06/21 06/06/21 06/02/21 History Active Medications: Generic Name Dose Route Start Last Admin Trade Name Freq PRN Reason Stop Dose Admin Acetaminophen 650 mg 06/03/21 21:43 06/09/21 21:34 Acetaminophen 325 Mg Tab PO 650 mg Q4H PRN Administration Pain MILD(1-3)/Fever >100.5/THAYER Cetirizine HCl 10 mg 06/04/21 10:00 06/10/21 11:23 Cetirizine 10 Mg Tab PO 10 mg QDAY PATRICA Administration Dexamethasone 6 mg 06/09/21 11:00 06/10/21 11:22 Dexamethasone 4 Mg/Ml Vial IV 6 mg DAILY PATRICA Administration Diltiazem HCl 120 mg 06/07/21 22:00 06/10/21 22:04 Diltiazem Cd 120 Mg Cap PO 120 mg BID PATRICA Administration Divalproex Sodium 250 mg 06/03/21 22:00 06/10/21 22:[address] 250 Mg Tab PO 250 mg QHS PATRICA Administration Sodium Chloride 1,000 mls @ 75 mls/hr 06/10/21 11:00 06/10/21 23:59 Nacl 0.45% 1000 Ml IV 75 mls/hr DIRECT PATRICA Administration Isosorbide Mononitrate 30 mg 06/03/21 22:00 06/10/21 11:21 Isosorbide Mononitrate Er 30 Mg Tab PO 30 mg DAILY PATRICA Administration Memantine 10 mg 06/03/21 22:00 06/10/21 11:21 Memantine 10 Mg Tab PO 10 mg QDAY PATRICA Administration Metoprolol Tartrate 5 mg 06/07/21 18:00 06/11/21 05:09 Metoprolol Tartrate 5 Mg/5 Ml Inj IV 5 mg Q6HR PATRICA Administration Miscellaneous Medication 1 drop 06/03/21 22:00 06/04/21 00:41 Azelastine Hcl 0.05% OU Not Given BID [facility] Ondansetron HCl 4 mg 06/03/21 21:43 Ondansetron 4 Mg/2 Ml Inj IV Q8H PRN Nausea And Vomiting Quetiapine Fumarate 25 mg 06/03/21 22:00 06/10/21 22:04 Quetiapine 25 Mg Tab PO 25 mg QHS PATRICA Administration Sodium Chloride 10 ml 06/03/21 22:00 06/10/21 22:05 Sodium Chloride 0.9% 10 Ml Flush Syringe IV 10 ml BID PATRICA Administration Sodium Chloride 10 ml 06/04/21 08:12 06/07/21 23:45 Sodium Chloride 0.9% 50 Ml Ivpb IV 10 ml PRN PRN Administration FLUSH Warfarin Sodium 1 mg 06/08/21 17:00 06/10/21 19:48 Warfarin 1 Mg Tab PO 1 mg DAILY@1700 PATRICA Administration
[2021-06-11] MEDS: dexAMETHasone 4 MG/ML VIAL IV SCH (10:01)
--- NOTE | 2021-06-11 10:05 | Progress Note ---
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 transplanted heart: [place] heart Plan to address problem: Continue aspirin and isosorbide mononitrate (6) Coagulopathy Status: Acute Plan to address problem: INR is high at 6.5 Hold Coumadin for now (7) Malnutrition Status: Chronic Qualifiers: Protein-calorie malnutrition severity: moderate Plan to address problem: Dietary supplements requested (8) Transaminitis Status: Acute Plan to address problem: AST and ALT are elevated--96 and 65 Acute hepatitis profile (9) Psychosis Status: Chronic Plan to address problem: By history Mental health consult (10) Elevated brain natriuretic peptide (BNP) level Status: Acute Plan to address problem: Echocardiogram for ejection fraction and valve function (11) Rhabdomyolysis Status: Acute Qualifiers: Rhabdomyolysis type: non-traumatic Qualified Code(s): M62.82 - Rhabdomyolysis Plan to address problem: IV fluids for now and monitor his creatinine kinase (12) DVT prophylaxis Status: Acute Plan to address problem: On anticoagulation GI prophylaxis (13) Advance care planning Status: Acute Plan to address problem: Family counseled about disease education, care planning diagnosis and prognosis. Patient is full code. Family acknowledges understanding and agreement with care plan. +30 minutes. Subjective Date of service: 06/10/21 Principal diagnosis: hypernatremia Interval history: 80-year-old male with history of dementia and hypertension, recently diagnosed with COVID-19 from which she has recovered and was discharged from rehab to home continues to have generalized weakness and altered mental status. Patient is lethargic. Not eating or drinking well. Patient is confused and unable to answer questions appropriately. Able to move all 4 extremities. No fever or chills. Patient was seen here for 12 days ago for similar complaint. 06/10/2021 CHANDLER resolved Covid pneumonia improved Objective - Constitutional Vitals: Vital Signs - 12hr 06/11/21 06/11/21 06/11/21 00:21 05:09 06:03 Temperature 97.8 F Pulse Rate 102 H 98 H 83 Respiratory 20 Rate Blood Pressure 121/72 O2 Sat by Pulse 97 Oximetry General appearance: Present: no acute distress, well-nourished - EENT Eyes: PERRL, EOM intact ENT: hearing intact, clear oral mucosa Ears: bilateral: normal - Neck Neck: supple, normal ROM - Respiratory Respiratory effort: normal Respiratory: bilateral: CTA - Breasts Breasts: normal - Cardiovascular Heart rate: 78 Rhythm: regular Heart Sounds: Present: S1 & S2. Absent: gallop, rub Extremities: pulses intact, No edema, normal color, Full ROM - Gastrointestinal General gastrointestinal: Present: soft, non-tender, non-distended, normal bowel sounds - Genitourinary Male genitourinary: normal - Integumentary Integumentary: clear, warm, dry - Musculoskeletal Musculoskeletal: 1, strength equal bilaterally - Neurologic Neurologic: moves all extremities - Psychiatric Psychiatric: memory intact, appropriate mood/affect, intact judgment & insight - Labs CBC & Chem 7: 06/11/21 05:54 06/11/21 05:54 Labs: Abnormal lab results 06/10/21 06/10/21 06/10/21 Range/Units 09:07 09:07 09:07 WBC 14.3 H (4.5-11.0) K/mm3 Hgb 10.6 L (11.8-15.2) gm/dl Hct 33.3 L (35.5-45.6) % MCH (28-32) pg MCHC (32-34) % Lymph % (Auto) 5.0 L (13.4-35.0) % [place] % (Auto) 10.3 H (0.0-7.3) % Lymph # (Auto) 0.7 L (1.2-5.4) K/mm3 [place] # (Auto) 1.5 H (0.0-0.8) K/mm3 Seg Neutrophils % 84.6 H (40.0-70.0) % Seg Neutrophils # 12.1 H (1.8-7.7) K/mm3 PT 23.6 H (12.2-14.9) Sec. INR 1.91 H (0.87-1.13) Sodium 148 H (137-145) mmol/L Chloride 115.7 H (98-107) mmol/L BUN 33 H (9-20) mg/dL Glucose 167 H (75-100) mg/dL POC Glucose (70-105) mg/dL Calcium 8.2 L (8.4-10.2) mg/dL AST 87 H (5-40) units/L ALT 90 H (7-56) units/L Total Creatine Kinase 1099 H (55-170) units/L Total Protein 5.5 L (6.3-8.2) g/dL Albumin 2.0 L (3.9-5) g/dL 06/10/21 06/10/21 06/10/21 Range/Units 11:52 17:28 21:51 WBC (4.5-11.0) K/mm3 Hgb (11.8-15.2) gm/dl Hct (35.5-45.6) % MCH (28-32) pg MCHC (32-34) % Lymph % (Auto) (13.4-35.0) % [place] % (Auto) (0.0-7.3) % Lymph # (Auto) (1.2-5.4) K/mm3 [place] # (Auto) (0.0-0.8) K/mm3 Seg Neutrophils % (40.0-70.0) % Seg Neutrophils # (1.8-7.7) K/mm3 PT (12.2-14.9) Sec. INR (0.87-1.13) Sodium (137-145) mmol/L Chloride (98-107) mmol/L BUN (9-20) mg/dL Glucose (75-100) mg/dL POC Glucose 149 H 175 H 194 H (70-105) mg/dL Calcium (8.4-10.2) mg/dL AST (5-40) units/L ALT (7-56) units/L Total Creatine Kinase (55-170) units/L Total Protein (6.3-8.2) g/dL Albumin (3.9-5) g/dL 06/11/21 06/11/21 06/11/21 Range/Units 05:54 05:54 06:04 WBC 13.8 H (4.5-11.0) K/mm3 Hgb 10.6 L (11.8-15.2) gm/dl Hct 34.6 L (35.5-45.6) % MCH 27 L (28-32) pg MCHC 31 L (32-34) % Lymph % (Auto) 5.9 L (13.4-35.0) % [place] % (Auto) 9.7 H (0.0-7.3) % Lymph # (Auto) 0.8 L (1.2-5.4) K/mm3 [place] # (Auto) 1.3 H (0.0-0.8) K/mm3 Seg Neutrophils % 84.3 H (40.0-70.0) % Seg Neutrophils # 11.7 H (1.8-7.7) K/mm3 PT (12.2-14.9) Sec. INR (0.87-1.13) Sodium 146 H (137-145) mmol/L Chloride 112.3 H (98-107) mmol/L BUN 30 H (9-20) mg/dL Glucose 154 H (75-100) mg/dL POC Glucose 138 H (70-105) mg/dL Calcium (8.4-10.2) mg/dL AST 68 H (5-40) units/L ALT 90 H (7-56) units/L Total Creatine Kinase 521 H (55-170) units/L Total Protein 5.0 L (6.3-8.2) g/dL Albumin 1.8 L (3.9-5) g/dL HEART Score - HEART Score Troponin: Troponin T 0.050 ng/mL (0.00-0.029) H D 06/09/21 05:30
[2021-06-11] MEDS: CETIRIZINE 10 MG TAB PO SCH (10:11)
[2021-06-11] MEDS: MEMANTINE 10 MG TAB PO SCH (10:11)
[2021-06-11] MEDS: dilTIAZem CD 120 MG CAP PO SCH (10:36)
[2021-06-11 10:37] VITALS: BP 136/75
[2021-06-11 12:09] LABS: INR 1.55 (0.87-1.13)
[2021-06-11] MEDS ORDERED: WARFARIN 2 MG TAB PO SCH (17:00)
--- NOTE | 2021-06-12 07:46 | Discharge Summary ---
Providers - Providers Date of Admission: 06/03/21 21:43 Date of discharge: 06/11/21 Attending physician: PETE QUINONES 06/04/21 08:06 Consult to Mental Health [CONS] Routine Reason For Exam: History of bipolar disorder 06/04/21 08:08 Consult to Physician [CONS] Routine Comment: Consulting Provider: ANA LAWSON Physician Instructions: Reason For Exam: CHANDLER 06/04/21 12:32 Physical Therapy Evaluation and Treat [CONS] Routine Comment: Reason For Exam: General weakness, difficulty ambulating, falls 06/08/21 19:37 Consult to Dietitian/Nutrition [CONS] Routine Physician Instructions: Reason For Exam: Reason for Consult: Write/Manage Tube Feeding 06/11/21 09:33 Speech Therapy Evaluation and Treat [CONS] Stat Reason For Exam: check for swallowing Primary care physician: [employer] Hospitalization Condition: Stable Hospital course: 80-year-old male with history of dementia and hypertension, recently diagnosed with COVID-19 from which she has recovered and was discharged from rehab to home continues to have generalized weakness and altered mental status. Patient is lethargic. Not eating or drinking well. Patient is confused and unable to answer questions appropriately. Able to move all 4 extremities. No fever or chills. Patient was seen here for 12 days ago for similar complaint. 06/11/21 Patient Is been more alert today. Afebrile and hemodynamically stable. Patient able to eat pured diet after swallow evaluation (1) acute to COVID-19 infection with anorexia and poor p.o. intake Current Visit: Yes Status: Acute Plan to address problem: Able to eat today . Pured diet Swallow eval appreciated (2) dehydration with hypernatremia Current Visit: Yes Status: Acute Plan to address problem: Improved Creatinine at 1.0 (3) CHANDLER (acute kidney injury) from dehydration due to poor p.o. intake Current Visit: Yes Status: Acute Plan to address problem: Improved Creatinine to baseline (4)Acute hypoxic respiratory failure Chest x-ray unremarkable and lungs clear Mildly dyspneic needing O2 Covid pneumonia as expected Aspiration is a possibility but lung sounds clear Started Decadron on 06/07 Not a candidate for remdesivir since CHANDLER and the onset of symptoms more than 2 weeks ago. leukocytosis with lactic acidosis Remains afebrile, procalcitonin normal Chest x-ray unremarkable, UA negative for UTI. Urine and blood cultures negative to date Unclear if etiology is sepsis or just severe dehydration, aspiration is a possibility. Lactic acid improving, will continue with fluids Leukocytosis improving without antibiotic intervention Will continue to monitor closely. (4) Hypertension Current Visit: Yes Status: Chronic Qualifiers: Hypertension type: primary hypertension Qualified Code(s): I10 - Essential (primary) hypertension Plan to address problem: Continue antihypertensives as tolerated but avoid hypotension since has CHANDLER (5) CAD, borderline troponin Current Visit: Yes Status: Chronic Qualifiers: Coronary Disease-Associated Artery/Lesion type: [place] artery [place] vs. transplanted heart: [place] heart Plan to address problem: Continue aspirin and isosorbide mononitrate Borderline troponins 0.02, 0.13, 0.09 could be from a A. fib/RVR or rhabdomyolysis. No chest pain, BP stable, looks comfortable chronic A. fib, currently RVR Off his home meds Digoxin 0.5 mg x 1 dose on 06/04 Resume home home oral Cardizem CD, increased to twice daily On chronic Coumadin therapy (6) Coagulopathy Current Visit: Yes Status: Acute Plan to address problem: INR is high at 6.5, progressively improving Likely due to poor p.o. intake Held Coumadin, resumed on 06/08 but add very low-dose 1 mg daily since INR dropped to 1.47. Discussed with the pharmacy (7) Malnutrition Current Visit: Yes Status: Chronic Qualifiers: Protein-calorie malnutrition severity: moderate Plan to address problem: Dietary supplements requested (8) Transaminitis Current Visit: Yes Status: Acute Plan to address problem: AST and ALT are elevated--stable Could be related to acute COVID-19 infection Acute hepatitis profile negative (9) history of dementiaworsening mental status Current Visit: Yes Status: Chronic Plan to address problem: Likely due to dehydration, hypernatremia, COVID-19 and other infectious process. Currently calm and cooperative, remains very confused Mental health consult (10) Elevated (BNP) level, Current Visit: Yes Status: Acute Plan to address problem: EchocardiogramLV size and function normal, LVEF 55 to 60%, mild LVH, normal atria, RV size mildly increased and RV function could not be ascertained. The rest of the study unremarkable. No evidence of volume overload (11) Rhabdomyolysis Current Visit: Yes Status: Acute Qualifiers: Rhabdomyolysis type: non-traumatic Qualified Code(s): M62.82 - Rhabdomyolysis Plan to address problem: IV fluids for now and monitor his creatinine kinase (12) DVT prophylaxis Current Visit: Yes Status: Acute Plan to address problem: INR is still therapeutic (13) Advance care planning Current Visit: Yes Status: Acute Plan to address problem: Family counseled about disease education, care planning diagnosis and prognosis. Patient is full code. Family acknowledges understanding and agreement with care plan. Time spent in direct patient care: More than 30 minutes Discussed with the nursing staff Disposition: 03 [facility] Final Discharge Diagnosis (Prints w/discharge instructions): Acute respiratory failure with hypoxia. COVID pneumonia. Failure to thrive. CHANDLER-resolved. Atrial fibrillation. Hypertension Time spent for discharge: 35 minutes - Discharge Diagnoses (1) Failure to thrive Status: Acute (2) Hypernatremia Status: Acute (3) CHANDLER (acute kidney injury) Status: Acute (4) Hypertension Status: Chronic Qualifiers: Hypertension type: primary hypertension Qualified Code(s): I10 - Essential (primary) hypertension (5) CAD (coronary artery disease) Status: Chronic Qualifiers: Coronary Disease-Associated Artery/Lesion type: [place] artery [place] vs. transplanted heart: [place] heart (6) Coagulopathy Status: Acute (7) Malnutrition Status: Chronic Qualifiers: Protein-calorie malnutrition severity: moderate (8) Transaminitis Status: Acute (9) Psychosis Status: Chronic (10) Elevated brain natriuretic peptide (BNP) level Status: Acute (11) Rhabdomyolysis Status: Acute Qualifiers: Rhabdomyolysis type: non-traumatic Qualified Code(s): M62.82 - Rhabdomyolysis (12) DVT prophylaxis Status: Acute (13) Advance care planning Status: Acute Core Measure Documentation - Palliative Care Palliative Care/ Comfort Measures: Not Applicable - Core Measures Any of the following diagnoses?: none Exam - Constitutional Vitals: Temp Pulse Resp BP Pulse Ox 98.5 F 111 H 16 136/75 98 06/11/21 10:30 06/11/21 12:00 06/11/21 10:30 06/11/21 12:00 06/11/21 10:30 General appearance: Present: no acute distress, well-nourished - EENT Eyes: Present: PERRL ENT: hearing intact, clear oral mucosa - Neck Neck: Present: supple, normal ROM - Respiratory Respiratory effort: normal Respiratory: bilateral: CTA - Cardiovascular Heart rate: 88 Rhythm: regular Heart Sounds: Present: S1 & S2. Absent: rub, click - Extremities Extremities: pulses symmetrical, No edema Peripheral Pulses: within normal limits - Abdominal General gastrointestinal: Present: soft, non-tender, non-distended, normal bowel sounds Male genitourinary: Present: normal - Integumentary Integumentary: Present: clear, warm, dry - Musculoskeletal Musculoskeletal: generalized weakness - Psychiatric Psychiatric: appropriate mood/affect, intact judgment & insight - Neurologic Neurologic: CNII-XII intact, moves all extremities - Allied Health Allied health notes reviewed: nursing, case management Plan Weight Bearing Status: Weight Bear as Tolerated Diet: thickened liquids, advance as tolerated Follow up with: PRIMARY CARE, [Primary Care Provider] - 7 Days Forms: Warfarin Discharge Instruction
[2021-06-12] MEDS ORDERED: DEXAMETHASONE 4 MG TAB PO SCH (10:00)
== END 2021-06-11 15:05 | DRG 682 ==
LOC: ED 12:38 → 3A 21:43
PROVIDERS: ADMIT Internal Medicine; ATTEND Internal Medicine
DX: N17.0 Acute kidney failure with tubular necrosis (principal); G93.41 Metabolic encephalopathy; J96.01 Acute respiratory failure with hypoxia; E87.0 Hyperosmolality and hypernatremia; E44.0 Moderate protein-calorie malnutrition; M62.82 Rhabdomyolysis; D68.9 Coagulation defect, unspecified; I48.20 Chronic atrial fibrillation, unspecified; Z20.822 Contact with and (suspected) exposure to COVID-19; Z68.22 Body mass index [BMI] 22.0-22.9, adult; R62.7 Adult failure to thrive; I25.10 Atherosclerotic heart disease of native coronary artery without angina pectoris; I10 Essential (primary) hypertension; Z82.49 Family history of ischemic heart disease and other diseases of the circulatory system; F29 Unspecified psychosis not due to a substance or known physiological condition; E83.52 Hypercalcemia; E86.0 Dehydration
CPT/HCPCS: 36415; 70450; 71045; 74018; 76770; 80048; 80053; 80061; 80074; 80076; 81001; 82140; 82550; 82962; 84145; 84443; 84484; 85007; 85025; 85610; 85730; 86140; 87040; 87086; 93005; 93010; 93306; 94760; G0378; J3490; J9280; Q0162; C8929; J1100; J1160; J1644; J2543; J7030; J7070; J8540; U0003

== ENCOUNTER 2021-07-13 05:40 | Emergency (ER) | payer MEDICARE, OTHER ==
--- NOTE | 2021-07-13 05:54 | Emergency Department Report ---
ED CPR HPI - General Stated Complaint: CARDIAC ARREST Time Seen by Provider: 07/13/21 05:44 Source: EMS, old records reviewed Mode of arrival: Stretcher Limitations: Altered Mental Status - History of Present Illness Initial Comments: Chief complaint: Cardiac arrest HPI: This is an 81-year-old male with history of cognitive deficit dysphagia dementia hypertension coronary artery disease failure to thrive malnutrition who presents in cardiac arrest from [facility]. Nursing staff recognized that patient was unresponsive not breathing without pulse. CPR started. Upon EMS arrival patient rhythm asystole. Patient was intubated with ETT treated with 3 doses of epinephrine. CPR began at 455. Complaint: found unresponsive Place: NH/S[facility] Bystander CPR Performed: Yes (CPR performed by nursing staff) Initial Findings in the Field: unresponsive, other rhythm (Asystole) ROSC in the Field: No Treatments Prior to Arrival: intubation, chest compressions, epinephrine mgs # (3 doses of epinephrine) - Related Data Home Medications Medication Instructions Recorded Confirmed Last Taken Aspirin EC [Ecotrin] 325 mg PO QDAY 06/06/21 06/06/21 06/02/21 Azelastine HCl [Azelastine HCl 1 drop OU BID 06/06/21 06/06/21 06/02/21 0.05%] Cetirizine HCl [ZyrTEC 10mg cap] 10 mg PO QDAY 06/06/21 06/06/21 06/02/21 Cyanocobalamin [Vitamin B-12] 1,000 mcg PO DAILY 06/06/21 06/06/21 06/02/21 Divalproex [Charito Parker] 250 mg PO QHS 06/06/21 06/06/21 06/02/21 ISOSORBIDE MONOnitrate [Imdur ER] 30 mg PO DAILY 06/06/21 06/06/21 06/02/21 Memantine 10 mg PO QDAY 06/06/21 06/06/21 06/02/21 QUEtiapine [SEROquel] 25 mg PO QHS 06/06/21 06/06/21 06/02/21 Warfarin [Coumadin] 5 mg PO QDAY 06/06/21 06/06/21 06/02/21 dilTIAZem CD [Cardizem CD] 120 mg PO DAILY 06/06/21 06/06/21 06/02/21 Allergies Allergy/AdvReac Type Severity Reaction Status Date / Time No Known Allergies Allergy Verified 06/06/21 13:50 ED Review of Systems ROS: Stated complaint: CARDIAC ARREST Other details as noted in HPI Comment: Unobtainable due to pts medical conditions (Patient in cardiac arrest unresponsive) ED Past Medical Hx - Past Medical History Previous Medical History?: Yes Hx Hypertension: Yes Hx Dementia: Yes - Surgical History Additional Surgical History: Unable to obtain this history - Social History Smoking Status: Unknown if ever smoked Substance Use Type: Other (Noncontributory to presentation) - Medications Home Medications: Home Medications Medication Instructions Recorded Confirmed Last Taken Type Aspirin EC [Ecotrin] 325 mg PO QDAY 06/06/21 06/06/21 06/02/21 History Azelastine HCl [Azelastine HCl 1 drop OU BID 06/06/21 06/06/21 06/02/21 History 0.05%] Cetirizine HCl [ZyrTEC 10mg cap] 10 mg PO QDAY 06/06/21 06/06/21 06/02/21 History Cyanocobalamin [Vitamin B-12] 1,000 mcg PO DAILY 06/06/21 06/06/21 06/02/[address] [Depakote Dr] 250 mg PO QHS 06/06/21 06/06/21 06/02/21 History ISOSORBIDE MONOnitrate [Imdur ER] 30 mg PO DAILY 06/06/21 06/06/21 06/02/21 History Memantine 10 mg PO QDAY 06/06/21 06/06/21 06/02/21 History QUEtiapine [SEROquel] 25 mg PO QHS 06/06/21 06/06/21 06/02/21 History Warfarin [Coumadin] 5 mg PO QDAY 06/06/21 06/06/21 06/02/21 History dilTIAZem CD [Cardizem CD] 120 mg PO DAILY 06/06/21 06/06/21 06/02/21 History ED Physical Exam - General Limitations: Other (Cardiac arrest) General appearance: other (Lifeless no response to pain receiving chest compressions without response) - Head Head exam: Present: atraumatic, normocephalic - Eye Eye exam: Present: other (Fixed dilated pupils) - ENT ENT exam: Present: other (Dry pale mucosa) - Neck Neck exam: Present: normal inspection, other (No bruising no laceration) - Respiratory Respiratory exam: Present: other (No spontaneous respiration) - Cardiovascular Cardiovascular Exam: Present: other (No auscultated heart sounds, absent cardiac pulse) - GI/Abdominal GI/Abdominal exam: Present: soft. Absent: distended - Extremities Exam Extremities exam: Present: other (Cachectic contracted extremities without obvious trauma or deformity) - Back Exam Back exam: Present: other (No ecchymoses or laceration) - Neurological Exam Neurological exam: Present: other (Lifeless no spontaneous movement no withdrawal from pain) - Psychiatric Psychiatric exam: Present: other (Lifeless nonverbal) - Skin Skin exam: Present: pallor ED Medical Decision Making - Medical Decision Making Mr. Becerra presents in cardiac arrest asystole persistent for 41 minutes of ACLS provided by paramedics. Further resuscitation deemed futile. Time of 0538. I informed Helena becerra daughter and POA of patient's over the phone. She plans to have her father cremated. Critical care attestation.: If time is entered above; I have spent that time in minutes in the direct care of this critically ill patient, excluding procedure time. ED Disposition Clinical Impression: Cardiac arrest Disposition: 20 Is pt being admited?: No Does the pt Need Aspirin: No Time of Disposition: 05:38
== END 2021-07-13 09:53 ==
LOC: ED 05:40
DX: I46.9 Cardiac arrest, cause unspecified (principal); I10 Essential (primary) hypertension; F03.90 Unspecified dementia, unspecified severity, without behavioral disturbance, psychotic disturbance, mood disturbance, and anxiety
CPT/HCPCS: 92950; 99285